=== PATIENT | female | born 1950 | race Caucasian/White ===

== ENCOUNTER 2016-08-02 07:38 | Emergency (ER) | payer MEDICARE ==
[2016-08-02] MEDS ORDERED: Ondansetron INJ* 2 MG/ML VIAL IV ONE (11:04)
[2016-08-02] MEDS ORDERED: NS 0.9% 1000 ML* 1,000 ML IV ONE (11:04)
[2016-08-02 11:36] LABS: Albumin 4.2 g/dL (3.2-5.2); BUN/Creatinine Ratio 28.2 (8-20); C Reactive Protein 15.85 mg/L (< 5.00); EGFR African American 47.3 (>60); EGFR Non-African American 36.8 (>60); Globulin 3.4 g/dL (2-4); Potassium 4.8 mmol/L (3.5-5.0); Total Bilirubin 0.8 mg/dL (0.2-1.0); Total Protein 7.6 g/dL (6.4-8.9)
[2016-08-02 11:38] LABS: Hematocrit 42 % (35-47); Hemoglobin 13.8 g/dl (12.0-16.0); Mean Corpuscular HGB Conc 33 g/dl (31-36); Mean Corpuscular Hemoglobin 29 pg (27-31); Mean Corpuscular Volume 88 fL (80-97); Mean Platelet Volume 10 um3 (7.4-10.4); Red Blood Count 4.83 10^6/ul (4.0-5.4); Red Cell Distribution Width 16 % (10.5-15); White Blood Count 16.6 10^3/ul (3.5-10.8)
[2016-08-02 11:39] LABS: Comments Flag Yes
[2016-08-02 11:42] LABS: Add Diff/Slide Review? Manual Diff Added
--- NOTE | 2016-08-02 11:44 | ED ---
Abdominal Pain/Female - HPI Summary HPI Summary: 66 female presents accompanied by with complaints of nausea, vomiting and diarrhea that began around 0500 this morning. Has had about 6-7 episodes vomiting before arrival, last being at 730am and diarrhea began after and has had approximately 8 episodes. Patient has a history of becoming easily dehydrated with previous similar symptoms and experiencing lactic acidosis. Patient also had an episode of pancreatitis back in 2004. Patient has diabetes and is on Metformin, and recently was placed on Januvia ~2-3days ago. Believes it may be from the medication, and she came as soon as symptoms started to avoid dehydration and pancreatitis, both that she is highly prone too. Patient came today to avoid becoming dehydrated and rule out pancreatitis. Patient denies any localized abdominal pain. States it is just crampy and diffuse discomfort. Patient has been unable to eat or drink since symptoms began. Bowel movements were normal before diarrhea. Denies blood, fever/chills, urinary symptoms and genitalia symptoms. No recent antibiotic use, other GI disorders. 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 No recent travel or outside water source. Patient denies take out food or leftover. No experiencing signs or symptoms of DKA. States her sugars have been great. - History of Current Complaint Chief Complaint: EDNauseaVomitDiarrh Stated Complaint: NAUSEA Time Seen by Provider: 08/02/16 11:03 Hx Obtained From: Patient, Family/Yeast Culture Operator - ?: No Onset/Duration: Sudden Onset, Lasting Hours Timing: Intermittent Episode Lasting Severity Currently: None Pain Intensity: 0 Pain Scale Used: 0-10 Numeric Location: Diffuse - crampy, Radiates: No Aggravating Factor(s): Nothing Alleviating Factor(s): Nothing Associated Signs and Symptoms: Positive: Decreased Appetite, Nausea, Vomiting, Diarrhea. Negative: Diaphoresis, Fever, Back Pain, Blood in Stool, Urinary Symptoms Allergies/Adverse Reactions: Allergies Allergy/AdvReac Type Severity Reaction Status Date / Time Latex Allergy Rash Verified 08/02/16 07:43 Statins Allergy Muscle Ache Verified 08/02/16 07:43 Sulfa Antibiotics AdvReac Intermediate Nausea And Verified 08/02/16 07:43 Vomiting PMH/Surg Hx/FS Hx/Imm Hx Endocrine/Hematology History: Reports: Hx Diabetes - TYPE 2, ON ORAL MEDS, Hx Thyroid Disease - "2 nodules" Denies: Hx Systemic Lupus Erythematosus, Hx Anemia Cardiovascular History: Reports: Hx Cardiomegaly - ENLARGED HEART WHEN AST FOUND , BACK TO NORMAL SIZE AFTER REPAIR, Hx Hypercholesterolemia, Hx Hypertension - ON MEDS FOR, Hx Valvular Heart Disease - PT STATES "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 VALVE, I DONT REMEMBER WHICH ONE.", Other Cardiovascular Problems/Disorders - ATRIAL SEPTIC DEFCT Denies: Hx Congestive Heart Failure, Hx Pacemaker/ICD GI History: Reports: Hx Gastroesophageal Reflux Disease - ON MEDS FOR, Other GI Disorders - PT HAS PANCREATITIS, STENT IMPLANTED 10 YEARS AGO, NO SYMPTOMS IN 10 YEARS Denies: Hx Jaundice History: Reports: Hx Renal Disease - abnormal gfr, Other Problems/ Disorders - STATES "PROBLEM WITH KIDNEYS R/T MEDICATION, GOES UP AND DOWN." Denies: Hx Dialysis Musculoskeletal History: Reports: Hx Arthritis - MILD ARTHRITIS IN BOTH HIPS, Hx Bursitis - BILATERL HIPS, CORTISONE WORKED FOR RIGHT HIP, LEFT HIP NEEDS SURGERY, Hx Tendonitis - LEFT HIP Denies: Hx Rheumatoid Arthritis, Hx Osteoporosis Sensory History: Reports: Hx Contacts or Glasses - FOR READING AND DRIVING Denies: Hx Hearing Aid Opthamlomology History: Reports: Hx Contacts or Glasses - FOR READING AND DRIVING Neurological History: Reports: Hx Migraine - PT STATES 30 YEARS AGO, Other Neuro Impairments/Disorders - VERTIGO Psychiatric History: Reports: Hx Depression - ON MEDS FOR Denies: Hx Panic Disorder - Cancer History Hx Chemotherapy: No Hx Radiation Therapy: No - Surgical History Surgery Procedure, Year, and Place: 06/24/15-REVEAL INSERTABLE NIPPLE MAKER( MODEL LNQ11)-1.5T ONLY(SEE [facility] FOR IMPLANT INFO. PANCREATIC DUCT STENT- 2005- [facility] --LEFT BURSA REMOVED. repair ASD (atrial septal defect) -1997- [place]. THYROID NODULE- REMOVED- LAST 10YEARS- [facility] [place]- DR. MOLINA. CHOLESYSTECTOMY-15 YEARS AGO- [facility] [place]. RIGHT BREAST CYST REMOVED- 10 YEARS AGO- [facility]. mastoidectomy left EAR- 40 YEARS AGO- [facility]. appendectomy- 40 YEARS AGO- [facility]. FALLOPIAN TUBE REMOVED (UNSURE WHICH SIDE)-40 YEARS AGO-[facility]. T&A- A CHILD- [facility] Hx Anesthesia Reactions: Yes - SOME NAUSEA WITH OPEN HEART PROCEDURE - Immunization History Date of Tetanus Vaccine: UNK Date of Influenza Vaccine: UNK Infectious Disease History: No Infectious Disease History: Denies: Traveled Outside the [place] in Last 30 Days - Family History Known Family History: Positive: None - Social History Alcohol Use: Daily Alcohol Amount: 1 GLASS WINE Substance Use Type: Reports: None Smoking Status (MU): Former Smoker Amount Used/How Often: 1PACK ADAY Review of Systems Constitutional: Negative Eyes: Negative ENT: Negative Cardiovascular: Negative Respiratory: Negative Positive: Vomiting, Diarrhea, Nausea Genitourinary: Negative Musculoskeletal: Negative Skin: Negative Neurological: Negative All Other Systems Reviewed And Are Negative: Yes Physical Exam Triage Information Reviewed: Yes Vital Signs On Initial Exam: Initial Vitals Temp Pulse Resp BP Pulse Ox 98.1 F 113 16 113/57 99 08/02/16 07:43 08/02/16 07:43 08/02/16 07:43 08/02/16 07:43 08/02/16 07:43 tachycardia noted, will re-check and monitor. Vital Signs Reviewed: Yes Appearance: Positive: Well-Appearing, No Pain Distress, Well-Nourished Skin: Positive: Warm, Skin Color Reflects Adequate Perfusion, Dry, Other - no tenting noted. Head/Face: Positive: Normal Head/Face Inspection Eyes: Positive: Normal, Conjunctiva Clear ENT: Positive: Normal ENT inspection, Hearing grossly normal, Pharynx normal Dental: Negative: Cervical Lymphadenopathy Neck: Positive: Supple, Nontender, No Lymphadenopathy Respiratory/Lung Sounds: Positive: Clear to Auscultation, Breath Sounds Present. Negative: Rales, Rhonchi, Wheezes Cardiovascular: Positive: Normal, RRR, Pulses are Symmetrical in both Upper and Lower Extremities. Negative: Leg Edema Left, Leg Edema Right Abdomen Description: Positive: Nontender, No Organomegaly, Soft. Negative: Bruit, CVA Tenderness (R), CVA Tenderness (L), Distended, Guarding, Hernia @, McBurney's Point Tenderness, Peritoneal Signs, Pulsatile Mass Bowel Sounds: Positive: Present, Hyperactive Musculoskeletal: Positive: Normal, Strength/ROM Intact Neurological: Positive: Normal, Sensory/Motor Intact, Alert, Oriented to Person Place, Time, CN Intact II-III Psychiatric: Positive: Normal Diagnostics - Vital Signs Vital Signs Temp Pulse Resp BP Pulse Ox 08/02/16 09:35 97.8 F 105 16 121/54 100 08/02/16 07:48 98.1 F 113 16 113/57 99 08/02/16 07:43 98.1 F 113 16 113/57 99 - Laboratory Result Diagrams: 08/02/16 10:55 08/02/16 10:55 Lab Statement: Any lab studies that have been ordered have been reviewed, and results considered in the medical decision making process. 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 Labs, UA ordered. Given zofran and fluids. Patient did have elevated WBC, glucose and lactic. Patient did not take her morning or afternoon medications for her glucose. Given metformin and glipizide, re-checked sugar and lactic acid. Second values improved, patient is still due for more daily medication to control her glucose causing it to be elevated. Patient is asymptomatic and not experiencing symptoms of DKA. Was re-hydrated, given 3 liters of fluid. Patient was eating and feeling better. Diarrhea/vomiting subsided. Dr Chaidez also evaluated patient and stated it was saft to d/c at this time. Told to discontinue januvia and watch blood sugar closey until follow up with rectifying operator/PCP next week. Possibly side effect versus viral syndrome. No imaging necessary at this time. Aware of worsening signs and symptoms to watch out for and when to return. - Diagnoses Differential Diagnosis: Positive: Pancreatitis, Urinary Tract Infection, Other - DKA, dehydration, viral syndrome Provider Diagnoses: Nausea and vomiting - Provider Notifications Discussed Care Of Patient With: Dr Chaidez Time Discussed With Above Provider: 16:10 Discharge - Discharge Plan Condition: Stable Disposition: HOME Prescriptions: Ondansetron TAB* [Zofran 4 MG Tab*] 4 mg PO Q6H PRN #5 tab PRN Reason: Nausea Patient Education Materials: Acute Nausea and Vomiting (ED) Referrals: Ramona Maurice MD [Primary Care Provider] - Additional Instructions: Continue taking your at home medication as directed. You may want to discontinue the Januvia as long as your sugars are under control , as symptoms may have been a side effect. Keep a close eye on your sugars. If your sugar is high or you develop symptoms of hyperglycemia please return. If diarrhea persists you may try over the counter anti-diarrheal medication one time. Take prescribed zofran as needed for nausea/vomiting. If your symptoms persist, worsen, or new symptoms develop please return immediately. Close follow up with PCP.
[2016-08-02 12:06] LABS: Urine Bilirubin Negative (Negative); Urine Glucose 3+(>=500 mg/dL) (Negative); Urine Nitrite Negative (Negative)
[2016-08-02 12:11] LABS: Immature Granulocytes 5 % (0-9); Neutrophil % 87 % (38-83)
[2016-08-02 12:13] LABS: RBC Morphology Normal (Normal)
[2016-08-02] MEDS ORDERED: metFORMIN* 500 MG TAB PO ONE ×2 (12:56→15:29)
[2016-08-02] MEDS ORDERED: glipiZIDE TAB* 5 MG PO ONE (12:57)
[2016-08-02] MEDS: NS 0.9% 1000 ML* 2,000 ML IV ONE ×2 (13:56→13:57)
--- NOTE | 2016-08-02 16:18 | ED ---
Omar Sanchez Billy, scribed for Chanelle Chaidez MD on 08/02/16 at 1612 . Progress - Progress Note Progress Note: Consult for MEMO Mayo. Patient is a 66 year-old female coming to the ED for evaluation of diffuse abdominal pain and nausea, vomiting, and diarrhea. In the ED course, the patient was hydrated with IV fluids and given Zofran, glipizide, and metformin. At the time our our evaluation (160), the patient no longer complained of any discomfort or pain, and she was asymptomatic. Physical exam was benign. Her abdomen was soft and nontender, and she was in no acute distress. Physical Exam Triage Information Reviewed: Yes Vital Signs On Initial Exam: Initial Vitals Temp Pulse Resp BP Pulse Ox 98.1 F 113 16 113/57 99 08/02/16 07:43 08/02/16 07:43 08/02/16 07:43 08/02/16 07:43 08/02/16 07:43 Vital Signs Reviewed: Yes Appearance: Positive: No Pain Distress Skin: Positive: Warm, Dry, Other - no tenting noted. Head/Face: Positive: Normal Head/Face Inspection Eyes: Positive: DANIEL, Conjunctiva Clear ENT: Positive: Hearing grossly normal. Negative: Muffled/hoarse voice Cardiovascular: Positive: RRR, Pulses are Symmetrical in both Upper and Lower Extremities. Negative: Murmur Abdomen Description: Positive: Nontender, Soft Bowel Sounds: Positive: Present Musculoskeletal: Positive: Strength/ROM Intact. Negative: Edema Left, Edema Right Neurological: Positive: Sensory/Motor Intact, Alert, Oriented to Person Place, Time. Negative: Facial Droop, Focal Deficit @, Slurred Speech Psychiatric: Positive: Affect/Mood Appropriate - [place] Coma Scale Coma Scale Total: 15 Re-Evaluation - Re-Evaluation First Eval Re-Evaluation Time: 09:40 Change: Improved - patient was feeling better, no longer nauseous or vomiting, diarrhea also stopped Second Eval Re-Evaluation Time: 11:00 Change: Unchanged - patient still feeling fine Third Eval Re-Evaluation Time: 14:15 Change: Unchanged - patient still feeling fine, updated on current treatment plan to decrease sugar and repear lactic and then will be ready to d/c Course/Dx - Course Course Of Treatment: agree with discharge, despite repeat lactate of 2.2. Pt is clinically well after hydration, and meds for her diabetes and nausea. She will bring in a stool sample if diarrhea continues and return if any new or worsening symptoms. - Diagnoses Provider Diagnoses: Nausea and vomiting, Poorly controlled diabetes mellitus Discharge - Discharge Plan Condition: Stable Disposition: HOME Prescriptions: Ondansetron TAB* [Zofran 4 MG Tab*] 4 mg PO Q6H PRN #5 tab PRN Reason: Nausea Patient Education Materials: Acute Nausea and Vomiting (ED) Referrals: Ramona Maurice MD [Primary Care Provider] - Additional Instructions: Continue taking your at home medication as directed. You may want to discontinue the Januvia as long as your sugars are under control , as symptoms may have been a side effect. Keep a close eye on your sugars. If your sugar is high or you develop symptoms of hyperglycemia please return. If diarrhea persists you may try over the counter anti-diarrheal medication one time. Take prescribed zofran as needed for nausea/vomiting. If your symptoms persist, worsen, or new symptoms develop please return immediately. Close follow up with PCP. The documentation as recorded by the Omar jacinto Billy accurately reflects the service I personally performed and the decisions made by , Chanelle Chaidez MD.
[2016-08-02 16:34] VITALS: BP 116/84
== END 2016-08-02 16:33 | disposition home or self-care (01) ==
LOC: ED 07:38
DX: R11.2 Nausea with vomiting, unspecified (principal); E11.65 Type 2 diabetes mellitus with hyperglycemia; R19.7 Diarrhea, unspecified; Z87.891 Personal history of nicotine dependence
CPT/HCPCS: 36415; 80053; 81003; 83605; 83690; 85025; 86140; 96361; 96374; 99283; A9270-GY; J2405

== ENCOUNTER → 2018-02-02 06:06 | Day surgery (SDC) | payer MEDICARE ==
--- NOTE | 2018-01-29 19:01 | HP ---
AMENDED REPORT NOW INCLUDES DESIGNATED COSIGNER HISTORY AND PHYSICAL: DATE OF ADMISSION: 02/02/18 DATE OF OFFICE VISIT: 01/22/18 ATTENDING PHYSICIAN: Lupe Dejesus MD * (DICTATED BY MEMO VELAZQUEZ) CHIEF COMPLAINT: Right hip pain. HISTORY OF PRESENT ILLNESS: Ms. Rosario is a 67-year-old female with a persistent 8-10 right lateral hip pain due to right hip greater trochanteric bursitis. She has continued to have persistent severe pain that decreases her quality of life. She has tried injections and physical therapy. She did have an MRI that showed tendinosis, but no obvious tear. She has failed conservative treatment and has elected to proceed with surgery for right hip trochanteric bursectomy. She is status post left hip trochanteric bursectomy. PAST MEDICAL HISTORY: 1. Atrial septal defect. 2. Type 2 diabetes. 3. Hyperlipidemia. 4. Malaise. 5. Fatigue. 6. Sacroiliitis. 7. Trochanteric bursitis. 8. Chronic low back pain. 9. Hypertension. 10. Mitral valve disorder. PAST SURGICAL HISTORY: 1. Left trochanteric bursectomy with abductor tendon repair. 2. Mastoidectomy. 3. Open heart surgery for atrial septal defect 10 years ago. MEDICATIONS: 1. Lidocaine 4%. 2. Furosemide 20 mg. 3. Lisinopril 30 mg. 4. Triamcinolone 0.1%. 5. Venlafaxine 75 mg. 6. Aspirin 81 mg. 7. Potassium OTC. 8. Vitamin B12. 9. Vitamin D3. 10. Actos 5 mg. 11. Famciclovir 250 mg. 12. Pantoprazole sodium 40 mg. 13. Tramadol 50 mg. 14. Glipizide 5 mg. 15. Fiber Laxative 625 mg. ALLERGIES: To SULFA ANTIBIOTICS, LATEX, STATIN. SOCIAL HISTORY: The patient lives with her . She does not smoke, minimal alcohol, normally exercises. REVIEW OF SYSTEMS: Constitutional: Weight is unstable. The patient denies fevers, chills, or night sweats or unusual fatigue. HEENT: No visual difficulties. Hearing good. Extremities: Denies muscle weakness or numbness. Positive for right hip pain and back pain, SI joint pain. Cardiovascular: Denies chest pain or pressure, dyspnea on exertion or at rest. Respiratory: No shortness of breath, chronic cough, sputum production. GI: No history of hemoptysis, hematemesis, diarrhea, constipation, or change in bowel habits. She is also positive for depression and anxiety. Positive for diabetes, easy bleeding and bruising. Otherwise negative and noncontributory. PHYSICAL EXAMINATION GENERAL: Well-developed, well-nourished 67-year-old female, in no acute distress. Alert and oriented x3. Appropriate mood and affect. HEENT: Head is normocephalic, atraumatic. NECK: Supple with no palpable lymph nodes. LUNGS: Clear to auscultation bilaterally. No wheezes, rales, or rhonchi. CARDIAC: Regular rate and rhythm. S1, S2. No murmurs, rubs, or gallops. ABDOMEN: Soft, tender, nondistended. Positive bowel sounds throughout. MUSCULOSKELETAL: Right lower extremity, she has tenderness over the greater trochanteric bursa and gluteal tendon. Hip flexion is 90 degrees. Any rotation causes lateral hip pain. Neurovascularly intact distally. SKIN: Intact without rashes or lesions. IMPRESSION: Right hip greater trochanteric bursitis. PLAN: She is scheduled to undergo right greater trochanteric bursectomy on with possible abductor tendon repair. A prescription will be sent to the patient's pharmacy for postoperative pain management. She will follow up in the office 10 to 14 days postoperatively. MEMO VELAZQUEZ [id number]/[facility] #: [id number] JILL
[~2018-02-02 06:06] MED LIST: Buffered Lidocaine 0.9% SYRIN* 5 ML/SYR SYRINGE INTRADERM ONE; Buffered Lidocaine 0.9% SYRIN* 5 ML/SYR SYRINGE ONE; Bupivacaine 0.5% SDV PF* 30ML VIAL ONE; Dexamethasone IV* 4 MG/ML 1 ML (4 MG) ONE; DiMENhydriNATE IV* 50 MG/ML VIAL IV PUSH PRN; DiMENhydriNATE IV* 50 MG/ML VIAL ONE; Famotidine IV* 10 MG/ML 2 ML (20 mg) IV ONE; Famotidine IV* 10 MG/ML 2 ML (20 mg) ONE; HYDROmorphone INJ1* 1 MG/ML SYRINGE IV PRN; HYDROmorphone INJ1* 1 MG/ML SYRINGE ONE; KETAMINE HCL* 50 MG/ML 10 ML VIAL ONE; Ketorolac INJ* 30 MG/ML 1 ML VIAL ONE; Lidocaine 2% PF * 5 ML VIAL ONE; Midazolam* 1 MG/ML 5 ML VIAL (5 MG) ONE; Naloxone* 0.4 MG/ML 1 ML VIAL IV PRN; Ondansetron INJ* 2 MG/ML VIAL ONE; Propofol* 10 MG/ML 20 ML BTL IV PUSH ONE; ceFAZolin 2 GM PREMIX in ORs 2 GM/50 ML BAG IVPB ONE; fentaNYL* 50 MCG/ML 2 ML VIAL (100 MCG VIAL) ONE; oxyCODONE/Acetamin 5/325 MG* TAB ONE; oxyCODONE/Acetamin 5/325 MG* TAB PO PRN
[2018-02-02 10:36] VITALS: BP 165/78
--- NOTE | 2018-02-03 09:45 | OP ---
DATE OF OPERATION: 02/02/18 [facility] DATE OF : 46 SURGEON: Lupe Dejesus MD CARBONATING STONE CLEANER: MEMO Mead ANESTHESIOLOGIST: Dr. Nieto. ANESTHESIA: General. PRE-OP DIAGNOSES: Right trochanteric bursitis, abductor tendinitis. POST-OP DIAGNOSES: Right trochanteric bursitis, abductor tendinitis. OPERATIVE PROCEDURE: Right open greater trochanteric bursectomy, partial piriforms tendon release. COMPLICATIONS: None. ESTIMATED BLOOD LOSS: Less than 25 cc. SPECIMENS: None. BRIEF HISTORY/INDICATIONS: Ms. Rosario is a 67-year-old female with over one year of increasingly severe right lateral hip pain. She developed severe pain along her trochanteric bursa region and the piriformis region, unrelieved by conservative treatment. Due to continued pain and decreased quality of life, she elected to undergo an open right greater trochanteric bursectomy. Informed consent was obtained from the patient. She understood the risks of surgery included but were not limited to bleeding, infection, damage to nearby structures, continued pain, need for further surgery, stroke, heart attack, blood clot, and . She wished to proceed. INTRAOPERATIVE FINDINGS: Intraoperatively, the patient had an inflamed and enlarged trochanteric bursa. She also had piriformis tendon with tightness that was visibly compressing the sciatic nerve near its exit from the sciatic notch region. DESCRIPTION OF PROCEDURE: Ms. Rosario was identified in the preanesthesia unit. Her right lower extremity was marked as the correct operative side. Informed consent was signed and placed in the chart. The patient was taken to the operating room and placed under general anesthesia. She was placed in a left lateral decubitus position on the peg board. All bony prominences were well padded. Right lower extremity was prepped and draped in the usual sterile fashion. Preop time-out was made to correctly identify the patient's side and site. Appropriate perioperative antibiotics were given within 1 hour of incision. An 8-cm lateral hip incision was made directly over the trochanteric bursa. Electrocautery was used to dissect down to the lateral fascial layer. Lateral fascial layer was incised in line with the skin incision. Charnley retractor was placed. Trochanteric bursa was visualized. Bursa was inflamed and enlarged. A rongeur was used to remove the greater trochanteric bursa, any bleeding encountered was treated with electrocautery. The abductor tendon was carefully viewed. There was no obvious abductor tendon tear at the attachment through the greater trochanter. Piriformis tendon was visualized. This tendon was noted to be tight and there was some compression along the sciatic nerve exiting inferiorly. Near its bony insertion, the inferior 50% of the piriformis was released with electrocautery. This compression on the sciatic nerve did seem to be much improved. The surgical wound was copiously irrigated with sterile saline. The lateral fascial layer was reapproximated using interrupted #1 Vicryl. The rest of the incision was closed in a layered fashion using 0 and 2-0 Vicryl. Skin was closed using running 3-0 Monocryl and Dermabond. Sterile Adaptic, 4x4s, and paper tape were used to cover the incision. The patient's anesthesia was reversed without difficulty. She was taken to the PACU in stable condition. Intended weightbearing will be weightbearing as tolerated. Intended DVT prophylaxis will be aspirin. She will follow up in 2 weeks' time for recheck. [id number]/[facility] #: [id number] JILL
== END | disposition home or self-care (01) ==
LOC: OR 06:06
PROVIDERS: ATTEND Orthopaedic Surgery Adult Reconstructive Orthopaedic Surgery
DX: M70.61 Trochanteric bursitis, right hip (principal); M76.01 Gluteal tendinitis, right hip; Q21.1 Atrial septal defect; E11.9 Type 2 diabetes mellitus without complications; E78.5 Hyperlipidemia, unspecified; I10 Essential (primary) hypertension; I34.8 Other nonrheumatic mitral valve disorders
CPT/HCPCS: A9270-GY; J0690; J1100; J1170; J1240; J1885; J2250; J2405; J2704; J3010

== ENCOUNTER 2018-04-28 11:35 | Day surgery (SDC) | payer MEDICARE ==
[~2018-04-28 11:35] MED LIST changes: +Acetaminophen TAB* 325 MG PO PRN; -Buffered Lidocaine 0.9% SYRIN* 5 ML/SYR SYRINGE INTRADERM ONE; -Buffered Lidocaine 0.9% SYRIN* 5 ML/SYR SYRINGE ONE; +Buffered Lidocaine 1% SYRIN* 1 ML/SYRINGE INTRADERM ONE; -Bupivacaine 0.5% SDV PF* 30ML VIAL ONE; -Dexamethasone IV* 4 MG/ML 1 ML (4 MG) ONE; -DiMENhydriNATE IV* 50 MG/ML VIAL IV PUSH PRN; -DiMENhydriNATE IV* 50 MG/ML VIAL ONE; -Famotidine IV* 10 MG/ML 2 ML (20 mg) IV ONE; -Famotidine IV* 10 MG/ML 2 ML (20 mg) ONE; -HYDROmorphone INJ1* 1 MG/ML SYRINGE IV PRN; -HYDROmorphone INJ1* 1 MG/ML SYRINGE ONE; -KETAMINE HCL* 50 MG/ML 10 ML VIAL ONE; -Ketorolac INJ* 30 MG/ML 1 ML VIAL ONE; -Lidocaine 2% PF * 5 ML VIAL ONE; -Midazolam* 1 MG/ML 5 ML VIAL (5 MG) ONE; -Naloxone* 0.4 MG/ML 1 ML VIAL IV PRN; -Ondansetron INJ* 2 MG/ML VIAL ONE; -Propofol* 10 MG/ML 20 ML BTL IV PUSH ONE; -ceFAZolin 2 GM PREMIX in ORs 2 GM/50 ML BAG IVPB ONE; -fentaNYL* 50 MCG/ML 2 ML VIAL (100 MCG VIAL) ONE; -oxyCODONE/Acetamin 5/325 MG* TAB ONE; -oxyCODONE/Acetamin 5/325 MG* TAB PO PRN
[2018-04-28] MEDS ORDERED: Midazolam* 1 MG/ML 2 ML VIAL (2 MG) ONE ×2 (14:13)
[2018-04-28] MEDS ORDERED: Lidocaine 2% PF * 5 ML VIAL ONE (14:26)
[2018-04-28] MEDS ORDERED: Propofol* 10 MG/ML 20 ML BTL ONE (14:26)
[2018-04-28 14:48] VITALS: BP 162/73
[2018-04-28] MEDS ORDERED: Cyclopentolate 1% OPTH.SOL* 2 ML BTL ONE (15:45)
[2018-04-28] MEDS ORDERED: acetaZOLAMIDE TAB* 250 MG ONE (15:45)
[2018-04-28] MEDS ORDERED: Lidocaine 2% EPI 1:200000 MPF*10-20 ML VIAL ONE (15:46)
[2018-04-28] MEDS ORDERED: Lidocaine 1%* 5 ML VIAL ONE (15:46)
[2018-04-28] MEDS ORDERED: Proparacaine 0.5% OPHTH.SOL* 15 ML BTL ONE (15:46)
[2018-04-28] MEDS ORDERED: Phenylephrine 2.5% OPTH.SOL* 2 ML BTL ONE (15:46)
[2018-04-28] MEDS ORDERED: Neomycin/Polymy/Dex OPTH.SUSP* MAXITROL 0.1% 5 ML ONE (15:46)
[2018-04-28] MEDS ORDERED: Povidone Iodine 5% OPTH* 30 ML BTL ONE (15:46)
[2018-04-28] MEDS ORDERED: Ketorolac 0.5% OPHTH (NF) 0.5 % 5 ML BTL ONE (15:46)
--- NOTE | 2018-04-28 20:05 | OP ---
DATE OF OPERATION: 04/28/18 [facility] DATE OF : 46 SURGEON: Jesse Schilling M.D. PREOPERATIVE DIAGNOSIS: Cataract, right eye. POSTOPERATIVE DIAGNOSIS: Cataract, right eye. OPERATIVE PROCEDURE: Extracapsular cataract extraction with intraocular lens implant right eye. DESCRIPTION OF PROCEDURE: The patient was brought to the operating room after being given 1/2% Alcaine with epinephrine drops in the preoperative area. The eye was prepped and draped in the usual sterile fashion. Sterile drape and eyelid speculum were placed. Again, topical 1/2% Alcaine with epinephrine was given. A paracentesis incision was made at the 9 o'clock position with the No.75 blade. Clear cornea incision 2.2 x 2.2-mm was created at the 12 o'clock position starting at the anterior limbus using the 2.2-mm keratome. The anterior chamber was irrigated with 0.4 mL of 1% non-preservative intracameral lidocaine and filled with DisCoVisc. A capsulorrhexis was completed using the cystotome and the Utrata forceps. Hydrodissection was performed with balanced salt solution. The lens nucleus was removed with the Phacoemulsification handpiece without incident. Cortex was removed with the irrigation-aspiration handpiece. The capsular bag was re-inflated using DisCoVisc and an [id number] 24.5 implant was inserted with the shooter. The irrigation-aspiration handpiece was used to remove all residual DisCoVisc. The eye was refilled with balanced salt solution and the wound checked and found to be watertight. Topical Maxitrol drops were given. [id number]/[facility] #: [id number] MTDD
== END 2018-04-28 14:46 | disposition home or self-care (01) ==
LOC: OREAST 11:35
PROVIDERS: ATTEND Specialist
DX: H25.11 Age-related nuclear cataract, right eye (principal); E11.3293 Type 2 diabetes mellitus with mild nonproliferative diabetic retinopathy without macular edema, bilateral; Z79.84 Long term (current) use of oral hypoglycemic drugs
CPT/HCPCS: A9270-GY; J2250; J2704; V2632

== ENCOUNTER 2018-05-05 06:18 | Day surgery (SDC) | payer MEDICARE ==
[2018-05-05] MEDS ORDERED: Midazolam* 1 MG/ML 2 ML VIAL (2 MG) ONE ×2 (07:28→07:34)
[2018-05-05] MEDS ORDERED: fentaNYL* 50 MCG/ML 2 ML VIAL (100 MCG VIAL) ONE (07:37)
[2018-05-05] MEDS ORDERED: Propofol* 10 MG/ML 20 ML BTL ONE (07:39)
[2018-05-05 08:05] VITALS: BP 179/82
--- NOTE | 2018-05-05 08:53 | OP ---
DATE OF OPERATION: 05/05/18 [facility] DATE OF : 46 SURGEON: Jesse Schilling MD PREOPERATIVE DIAGNOSIS: Cataract, left eye. POSTOPERATIVE DIAGNOSIS: Cataract, left eye. OPERATIVE PROCEDURE: Extracapsular cataract extraction with intraocular lens implant, left eye. DESCRIPTION OF PROCEDURE: The patient was brought to the operating room after being given 1/2% Alcaine with epinephrine drops in the preoperative area. The eye was prepped and draped in the usual sterile fashion. Sterile drape and eyelid speculum were placed. Again, topical 1/2% Alcaine with epinephrine was given. A paracentesis incision was made at the 3 o'clock position with the No.75 blade. Clear cornea incision 2.2 x 2.2-mm was created at the 6 o'clock position starting at the anterior limbus using the 2.2-mm keratome. The anterior chamber was irrigated with 0.4 mL of 1% non-preservative intracameral lidocaine and filled with DisCoVisc. A capsulorrhexis was completed using the cystotome and the Utrata forceps. Hydrodissection was performed with balanced salt solution. The lens nucleus was removed with the Phacoemulsification handpiece without incident. Cortex was removed with the irrigation-aspiration handpiece. The capsular bag was re-inflated using DisCoVisc and an [id number] implant was inserted with the shooter, oriented to the 59 degree meridian. Horizontal reference coker were made with the patient in seated position in the preoperative area. An ORA was used to verify position. The irrigation- aspiration handpiece was used to remove all residual DisCoVisc. The eye was refilled with balanced salt solution and the wound checked and found to be watertight. Topical Maxitrol drops were given. [id number]/[facility] #: [id number] MTDD
[2018-05-05] MEDS ORDERED: Cyclopentolate 1% OPTH.SOL* 2 ML BTL ONE (10:38)
[2018-05-05] MEDS ORDERED: Proparacaine 0.5% OPHTH.SOL* 15 ML BTL ONE (10:38)
[2018-05-05] MEDS ORDERED: Neomycin/Polymy/Dex OPTH.SUSP* MAXITROL 0.1% 5 ML ONE (10:38)
[2018-05-05] MEDS ORDERED: Lidocaine 1%* 5 ML VIAL ONE (10:38)
[2018-05-05] MEDS ORDERED: Phenylephrine 2.5% OPTH.SOL* 2 ML BTL ONE (10:38)
[2018-05-05] MEDS ORDERED: Povidone Iodine 5% OPTH* 30 ML BTL ONE (10:38)
[2018-05-05] MEDS ORDERED: Ketorolac 0.5% OPHTH (NF) 0.5 % 5 ML BTL ONE (10:38)
[2018-05-05] MEDS ORDERED: Lidocaine 2% EPI 1:200000 MPF*10-20 ML VIAL ONE (10:38)
== END 2018-05-05 08:08 | disposition home or self-care (01) ==
LOC: OREAST 06:18
PROVIDERS: ATTEND Specialist
DX: H25.12 Age-related nuclear cataract, left eye (principal); Z79.84 Long term (current) use of oral hypoglycemic drugs; E11.3293 Type 2 diabetes mellitus with mild nonproliferative diabetic retinopathy without macular edema, bilateral; I10 Essential (primary) hypertension; M19.90 Unspecified osteoarthritis, unspecified site
CPT/HCPCS: A9270-GY; J2250; J2704; J3010; V2787

== ENCOUNTER 2018-10-16 12:10 | Emergency (ER) | payer MEDICARE ==
--- NOTE | 2018-10-16 13:03 | ED ---
Lower Extremity - HPI Summary HPI Summary: This pt is a 68 y/o female [place] [facility] [place]/o right ankle pain s/p falling while getting out of a boat yesterday. Pt reports she fell while getting out of the boat and immediately heard a crack in her right ankle. Denies head strike or LOC. Pt notes her right ankle is swollen and bruised. Denies any other injuries or complaints from her fall. Her medications include aspirin, denies any other anticoagulants. - History of Current Complaint Chief Complaint: EDFall Stated Complaint: RT ANKLE/LEG INJ PER PT Time Seen by Provider: 10/16/18 12:58 Hx Obtained From: Patient Mechanism Of Injury: Other - s/p fall while getting off a boat yesterday Onset of Pain: Immediate Onset/Duration: Days - 1 Severity Currently: Moderate Pain Intensity: 7 Pain Scale Used: 0-10 Numeric Timing: Lasting Days - 1 Location: Is Discrete @ - right ankle Associated Signs And Symptoms: Positive: Swelling, Bruising. Negative: Fever, Abdominal Pain, Knee Pain Aggravating Factor(s): Nothing Alleviating Factor(s): Nothing Related History: Other - s/p falling while getting out of a boat yesteday - Allergies/Home Medications Allergies/Adverse Reactions: Allergies Allergy/AdvReac Type Severity Reaction Status Date / Time latex Allergy Severe Rash Verified 10/16/18 12:23 Sulfa (Sulfonamide Allergy Intermediate Nausea And Verified 10/16/18 12:23 Antibiotics) Vomiting PMH/Surg Hx/FS Hx/Imm Hx Endocrine/Hematology History: Reports: Hx Diabetes - TYPE 2, ON ORAL MEDS, Hx Thyroid Disease - "2 nodules" Denies: Hx Systemic Lupus Erythematosus, Hx Anemia Cardiovascular History: Reports: Hx Angina, Hx Cardiomegaly - ENLARGED HEART WHEN AST FOUND, BACK TO NORMAL SIZE AFTER REPAIR, Hx Coronary Artery Disease, Hx Hypercholesterolemia, Hx Hypertension - lisinopril, Hx Valvular Heart Disease - Mitral reguritation, Atrial Septal Defect-repaired, Other Cardiovascular Problems/Disorders - Mild pulmonary hypertension Denies: Hx Congestive Heart Failure, Hx Myocardial Infarction, Hx Pacemaker/ ICD Respiratory History: Denies: Hx Asthma, Hx Chronic Obstructive Pulmonary Disease (COPD), Other Respiratory Problems/Disorders GI History: Reports: Hx Gastroesophageal Reflux Disease - pantoprazole, Other GI Disorders - Pancreatitis-duct stent placed 10 years ago, fatty liver Denies: Hx Jaundice History: Reports: Hx Renal Disease - abnormal gfr, Other Problems/ Disorders - STATES "PROBLEM WITH KIDNEYS R/T MEDICATION, GOES UP AND DOWN." Denies: Hx Dialysis Musculoskeletal History: Reports: Hx Arthritis - MILD ARTHRITIS IN BOTH HIPS, Hx Bursitis - BILATERAL HIPS, Hx Tendonitis - Bilateral hips, Other Musculoskeletal History - Lower back jwfp-rappmdwen-otzvxuhon injections Denies: Hx Rheumatoid Arthritis, Hx Osteoporosis Sensory History: Reports: Hx Cataracts - Bilateral, Hx Contacts or Glasses - Glasses for reading and driving Denies: Hx Hearing Aid Opthamlomology History: Reports: Hx Cataracts - Bilateral, Hx Contacts or Glasses - Glasses for reading and driving Neurological History: Reports: Hx Migraine - PT STATES 30 YEARS AGO, Other Neuro Impairments/Disorders - PAIN CLINIC PATIENT Psychiatric History: Reports: Hx Anxiety, Hx Depression - ON MEDS FOR Denies: Hx Panic Disorder - Cancer History Hx Chemotherapy: No Hx Radiation Therapy: No - Surgical History Surgery Procedure, Year, and Place: 06/24/15-REVEAL INSERTABLE BENCH HAND MACHINE( MODEL LNQ11)-1.5T ONLY(SEE [employer] FOR IMPLANT INFO - NOW REMOVED OF . PANCREATIC DUCT STENT- 2005- [facility] (REMOVED NOW)--. LEFT HIP BURSECTOMY & ABDUCTOR TENDON REPAIR(metal anchor in place) 2016. Repair ASD (atrial septal defect) -1997- [place]. THYROID NODULE- REMOVED- LAST 10YEARS[place] [facility]. CHOLESYSTECTOMY-15 YEARS AGO- [facility] RIGHT BREAST CYST REMOVED- 10 YEARS AGO- [facility]. Mastoidectomy left EAR- 40 YEARS AGO- [facility]. Appendectomy- 40 YEARS AGO- [facility]. FALLOPIAN TUBE REMOVED (UNSURE WHICH SIDE)-40 YEARS AGO-[facility]. T&A- A CHILD- [facility]. Right Hip bursectomy 2018[place] [facility] [place]x Anesthesia Reactions: No - Immunization History Date of Tetanus Vaccine: UNK Date of Influenza Vaccine: UNK Infectious Disease History: No Infectious Disease History: Denies: Traveled Outside the [place] in Last 30 Days - Family History Family History: Father with cataracts and macular degeneration - Social History Alcohol Use: None Alcohol Amount: 1 drink/wk Substance Use Type: Reports: None Hx Tobacco Use: No Smoking Status (MU): Former Smoker Amount Used/How Often: 1 PACK ADAY Have You Smoked in the Last Year: No Review of Systems Negative: Fever, Chills Cardiovascular: Negative Respiratory: Negative Gastrointestinal: Negative Musculoskeletal: Other - POSITIVE: right ankle pain Positive: Edema - right ankle Positive: Bruising - right ankle Neurological: Other - NEGATIVE: LOC All Other Systems Reviewed And Are Negative: Yes Physical Exam - Summary Physical Exam Summary: Appearance: The patient is well-nourished in no acute distress and in no acute pain. Skin: The skin is warm and dry. Ecchymosis just distal to the right medial malleolus. HEENT: The head is normocephalic and atraumatic. The pupils are equal and reactive. The conjunctivae are clear and without drainage. Nares are patent and without drainage. Mouth reveals moist mucous membranes and the throat is without erythema and exudate. The external ears are intact. The ear canals are patent and without drainage. The tympanic membranes are intact. Neck: the neck is supple with full range of motion and non-tender. There are no carotid bruits. There is no neck vein distension. Respiratory: Chest is non-tender. Lungs are clear to auscultation and breath sounds are symmetrical and equal. Cardiovascular: Heart is regular rate and rhythm. There is no murmur or rub auscultated. Musculoskeletal: Tender just proximal to the right lateral malleolus. Neurological: Patient is alert and oriented to person, place and time. The patient has symmetrical motor strength in all four extremities. Psychiatric: The patient has an appropriate affect and does not exhibit any anxiety or depression. Triage Information Reviewed: Yes Vital Signs On Initial Exam: Initial Vitals Temp Pulse Resp BP Pulse Ox 98.3 F 96 16 125/70 99 10/16/18 12:15 10/16/18 12:15 10/16/18 12:15 10/16/18 12:15 10/16/18 12:15 Vital Signs Reviewed: Yes Diagnostics - Vital Signs Vital Signs Temp Pulse Resp BP Pulse Ox 10/16/18 12:15 98.3 F 96 16 125/70 99 - Laboratory Lab Statement: Any lab studies that have been ordered have been reviewed, and results considered in the medical decision making process. - Radiology Right ankle XR Radiology Interpretation Completed By: Radiologist Summary of Radiographic Findings: IMPRESSION: Minimally displaced distal right fibula fracture. Dr. Wick has reviewed this report. Right foot XR Radiology Interpretation Completed By: Radiologist Summary of Radiographic Findings: IMPRESSION: Minimally displaced distal right fibula fracture. Dr. Wick has reviewed this report. Re-Evaluation - Re-Evaluation First Eval Re-Evaluation Time: 14:30 Comment: Reviewed discharge plan with the pt. Lower Extremity Course/Dx - Course Course Of Treatment: Ms. Rosario presented after hurting her ankle yesterday. She points just proximal to her lateral malleolus as the point of pain. She has ecchymosis medially in her ankle. Neurovascular and motor are completely intact. X-ray reveals a nondisplaced fibular fracture proximal to the lateral malleolus. She is absolutely nontender in the knee. She is adamant that she cannot use crutches. She has tried them in the past and is unable to use them. She does have a walker at home that she is willing to years. Because of this I placed her in a cam walker so that she would be able to bear a little weight and she states that this comfortable. I recommended she follow-up with orthopedics. - Diagnoses Provider Diagnoses: Nondisplaced fracture of distal end of right fibula Discharge - Sign-Out/Discharge Documenting (check all that apply): Patient Departure - Discharge home Patient Received Moderate/Deep Sedation with Procedure: No - Discharge Plan Condition: Stable Disposition: HOME Prescriptions: traMADol TAB* [Ultram*] 50 mg PO Q6HR PRN #20 tab MDD 4 PRN Reason: Pain Patient Education Materials: Ankle Fracture (ED) Referrals: Ramona Maurice MD [Primary Care Provider] - Devang Mukherjee MD [Medical Doctor] - Additional Instructions: Follow up with Dr. Mukherjee, orthopedist. RETURN TO THE ED FOR ANY WORSENING OR NEW SYMPTOMS. - Billing Disposition and Condition Condition: STABLE Disposition: Home - Attestation Statements Document Initiated by Grace: Yes Documenting Scribe: Cesia Recinos Provider For Whom Grace is Documenting (Include Credential): Marcelo Wick MD Scribe Attestation: Cesia Sanchez scribed for Marcelo Wick MD on 10/17/18 at 0832. Scribe Documentation Reviewed: Yes Provider Attestation: The documentation as recorded by the Cesia jacinto accurately reflects the service I personally performed and the decisions made by me, Marcelo Wick MD Status of Scribe Document: Viewed
[2018-10-16 14:42] VITALS: BP 120/74
== END 2018-10-16 14:41 | disposition home or self-care (01) ==
LOC: ED 12:10
DX: S82.831A Other fracture of upper and lower end of right fibula, initial encounter for closed fracture (principal); V94.0XXA Hitting object or bottom of body of water due to fall from watercraft, initial encounter; Z88.2 Allergy status to sulfonamides; Z91.040 Latex allergy status; E11.9 Type 2 diabetes mellitus without complications; E04.2 Nontoxic multinodular goiter; I11.9 Hypertensive heart disease without heart failure; I25.10 Atherosclerotic heart disease of native coronary artery without angina pectoris; K21.9 Gastro-esophageal reflux disease without esophagitis; Z79.84 Long term (current) use of oral hypoglycemic drugs; Z79.82 Long term (current) use of aspirin; Z79.899 Other long term (current) drug therapy; Z87.891 Personal history of nicotine dependence
CPT/HCPCS: 99282

== ENCOUNTER 2018-11-12 16:35 | Emergency (ER) | payer MEDICARE ==
--- OUTSIDE RECORDS SUMMARY | 2018-11-12 17:10 | XMS REPORT | Continuity of Care Document ---
:1950 Author Organization [facility] Address [address] [place] [address] Care Team Providers Name Role Phone Unavailable Primary Care Physician Unavailable Insurance Providers Payer Name Policy Number Subscriber Name Relationship MEDICARE - [place] [id number] MARLON GRANGER SELF (18) [employer] [id number] MARLON GRANGER SELF (18) [facility] [id number] MARLON GRANGER SELF (18) Advance Directives Directive Response Recorded Date/Time DO YOU HAVE A HEALTHCARE PROXY?: N 11/10/18 9:44am Chief Complaint and Reason for Visit Reason for Visit ABDOMINAL PAIN Problems No problem information available. Medications No medication information available. Social History Status Date Recorded Not November 10, 2018 Hospital Discharge Instructions No hospital discharge instructions. Plan of Care Discharge Date 11/10/18 Disposition HOME/SELF CARE (ROUTINE) Prescriptions See Medications Section Functional Status Query Response Date Recorded What is your primary language?: Lebanese November 10, 2018 9:44am Allergies, Adverse Reactions, Alerts No allergy information available. Immunizations No Known History of Immunizations. Vital Signs No Known Vital Signs Results. Results Laboratory Results Test Name Result Units Flags Reference Collection Result Comments Date/Time Date/Time Urine Color YELLOW 11/10/18 11/10/18 11:58am 12:03pm Urine Appearance CLEAR 11/10/18 11/10/18 11:58am 12:03pm Specific [place] 1.015 1.001-1.035 11/10/18 11/10/18 11:58am 12:03pm Urine Leukocyte NEGATIVE NEGATIVE 11/10/18 11/10/18 Esterase 11:58am 12:03pm Urine Nitrite NEGATIVE NEGATIVE 11/10/18 11/10/18 11:58am 12:03pm Urine pH 5.5 5.0-9.0 11/10/18 11/10/18 11:58am 12:03pm Urine Protein NEGATIVE mg/dL NEGATIVE 11/10/18 11/10/18 11:58am 12:03pm Urine Glucose 500 mg/dL H NEGATIVE 11/10/18 11/10/18 11:58am 12:03pm Urine Ketones NEGATIVE mg/dL NEGATIVE 11/10/18 11/10/18 11:58am 12:03pm Urine Urobilinogen NORMAL(0.2 mg/dL 0-1 11/10/18 11/10/18 -1) 11:58am 12:03pm Urine Bilirubin NEGATIVE NEGATIVE 11/10/18 11/10/18 11:58am 12:03pm Urine Blood TRACE H NEGATIVE 11/10/18 11/10/18 11:58am 12:03pm Urine Microscopic 0-2 /hpf 0-3 11/10/18 11/10/18 RBC 11:58am 12:10pm Urine Microscopic 0-2 /hpf H 0-3 11/10/18 11/10/18 WBC 11:58am 12:10pm Urine Epithelial 1+ /hpf 11/10/18 11/10/18 Cells 11:58am 12:10pm Blood Culture SENT TO 11/10/18 11/10/18 (LAB) REF LAB 9:49am 10:04am White Blood Count 10.9 K/mm3 H 4.0-10.0 11/10/18 11/10/18 9:48am 10:01am Red Blood Count 3.95 M/mm3 L 4.00-5.50 11/10/18 11/10/18 9:48am 10:01am Hemoglobin 11.0 gm/dL L 12.0-16.0 11/10/18 11/10/18 9:48am 10:01am Hematocrit 34.5 % L 36.0-48.8 11/10/18 11/10/18 9:48am 10:01am Mean Corpuscular 87.3 fl 80-96 11/10/18 11/10/18 Volume 9:48am 10:01am Mean Corpuscular 27.8 pg 27.0-31.0 11/10/18 11/10/18 Hemoglobin 9:48am 10:01am Mean Corpuscular 31.9 g/dl L 32.0-36.0 11/10/18 11/10/18 Hgb Concent Diff 9:48am 10:01am Red Cell 14.8 % H 10.0-14.5 11/10/18 11/10/18 Distribution Width 9:48am 10:01am Platelet Count 162 K/mm3 L 172-450 11/10/18 11/10/18 9:48am 10:01am Mean Platelet 11.3 fl 9.0-13.0 11/10/18 11/10/18 Volume 9:48am 10:01am Granulocytes % 85.2 % H 50-80.0 11/10/18 11/10/18 (Auto) 9:48am 10:01am Immature 0.2 % 0.0-0.2 11/10/18 11/10/18 Granulocytes % 9:48am 10:01am Lymphocytes % 7.1 % L 25.0-50.0 11/10/18 11/10/18 9:48am 10:01am Monocytes % 7.0 % 2.0-10.0 11/10/18 11/10/18 9:48am 10:01am Eosinophils % 0.3 % 0-5.0 11/10/18 11/10/18 9:48am 10:01am Basophils % 0.2 % 0.0-2.0 11/10/18 11/10/18 9:48am 10:01am Granulocytes # 9.3 K/mm3 H 2.0-8.00 11/10/18 11/10/18 9:48am 10:01am Immature 0.0 K/mm3 0.0-0.2 11/10/18 11/10/18 Granulocytes # 9:48am 10:01am Lymphocytes # 0.8 K/mm3 L 1.0-5.0 11/10/18 11/10/18 9:48am 10:01am Monocytes # 0.8 K/mm3 0.10-1.20 11/10/18 11/10/18 9:48am 10:01am Eosinophils # 0.0 K/mm3 0.0-0.5 11/10/18 11/10/18 9:48am 10:01am Basophils # 0.0 K/mm3 0.0-0.2 11/10/18 11/10/18 9:48am 10:01am Prothrombin Time 11.1 SECONDS H 8.7-10.7 11/10/18 11/10/18 9:48am 10:55am INR International 1.14 H 0.87-1.06 11/10/18 11/10/18 Normalized Ratio 9:48am 10:55am Partial 22.6 SECONDS 21.4-30.2 11/10/18 11/10/18 Thromboplastin 9:48am 10:55am Time - Mary Jo Glucose Level 231 mg/dL H 74-106 11/10/18 11/10/18 9:48am 10:23am Lactic Acid Level 1.1 mmol/L 0.4-2.0 11/10/18 11/10/18 9:48am 10:26am Blood Urea 38 mg/dL H 7-18 11/10/18 11/10/18 Nitrogen 9:48am 10:23am Creatinine 1.6 mg/dL H 0.6-1.0 11/10/18 11/10/18 9:48am 10:23am Sodium Level 139 mmol/L 136-145 11/10/18 11/10/18 9:48am 10:23am Potassium Level 4.0 mmol/L 3.5-5.1 11/10/18 11/10/18 9:48am 10:23am Chloride Level 104 mmol/L 98-107 11/10/18 11/10/18 9:48am 10:23am Carbon Dioxide 25 mmol/L 21-32 11/10/18 11/10/18 Level 9:48am 10:23am Calcium Level 9.5 mg/dL 8.5-10.1 11/10/18 11/10/18 9:48am 10:23am Anion Gap 10.0 mmol/L 5-12 11/10/18 11/10/18 9:48am 10:23am Estimated GFR 32 mL/min 11/10/18 11/10/18 GFR IS CALCULATED IN mL/min/ 1.73m2 (MDRD) 9:48am 10:23am NORMAL FUNCTION: >90 MILDLY DECREASED: 60-89 MILDY TO MODERATELY DECREASED: 45-59 MODERATELY TO SEVERELY DECREASED: 30-44 SEVERELY DECREASED: 15-29 RENAL FAILURE: <15 Aspartate Amino 17 U/L 15-37 11/10/18 11/10/18 Transf (AST/SGOT) 9:48am 10:23am Alanine 17 U/L 12-78 11/10/18 11/10/18 Aminotransferase 9:48am 10:23am (ALT/SGPT) Alkaline 103 U/L 46-116 11/10/18 11/10/18 Phosphatase 9:48am 10:23am Total Bilirubin 0.8 mg/dL 0.2-1.0 11/10/18 11/10/18 9:48am 10:23am Total Protein 7.6 g/dl 6.4-8.2 11/10/18 11/10/18 9:48am 10:23am Albumin 3.2 gm/dL L 3.4-5.0 11/10/18 11/10/18 9:48am 10:23am Lipase 187 U/L 73-393 11/10/18 11/10/18 9:48am 10:23am Magnesium Level 1.4 mg/dL L 1.8-2.4 11/10/18 11/10/18 9:48am 10:23am Procedures Procedure Status Date Provider(s) ABD/PEL NO CONTRAST Active 11/10/18 JANIYA OROZCO Encounters Encounter Location Arrival/Admit Date Discharge/Depart Date Attending Provider [place] 11/10/18 9:10am 11/10/18 1:53pm [facility], [facility] JANIYA
--- OUTSIDE RECORDS SUMMARY | 2018-11-12 17:10 | XMS REPORT | Continuity of Care Document ---
:1950 External Reference #:[id number] Author Name Karlene Muñiz Care Team Providers Name Role Phone Ramona Mcpherson MD Primary Care Physician Unavailable Payers Date Identification Numbers Payment Provider Subscriber Effective: 2018 Policy Number: [id number] Medicare Marlon Palm Rosario PayID: [id number] [address] [place] [address] Expires: 2018 Policy Number: [id number] Medicare Marlon Palm Rosario PayID: [id number] [address] [facility] [place] [address] Policy Number: [id number] [facility] Marlon Palm Rosario PayID: [id number] [address] [place] [address] Effective: 2014 Policy Number: [facility] Todays Marlon Palm Rosario [id number] Options Expires: 2017 PayID: [id number] [address] [address] Attn: [place] [address] Effective: 2013 Policy Number: [id number] [employer] Marlon Farrpard Expires: 2014 PayID: [id number] [address] [address] Expires: 2013 Policy Number: [id number] [employer] Chip Farrpard PayID: [id number] [address] [address] Problems Active Problems Provider Date Electrocardiogram abnormal Susan Thornton M.D. Onset: 05/26/2012 Dyspnea Susan Thornton M.D. Onset: 05/26/2012 Benign essential hypertension Susan Thornton M.D. Onset: 05/26/2012 Mixed hyperlipidemia Susan Thornton M.D. Onset: 05/26/2012 Type 2 diabetes mellitus Susan Thornton M.D. Onset: 05/26/2012 Ostium secundum type atrial septal Susan Thornton M.D. Onset: 2012 defect Malaise and fatigue Susan Thornton M.D. Onset: 05/26/2012 Mitral valve disorder Susan Thornton M.D. Onset: 06/27/2013 Rheumatic disease of tricuspid valve Susan Thornton M.D. Onset: 06/27 Enthesopathy of hip region Lupe Dejesus M.D. Onset: 11/16/2014 Localized, primary osteoarthritis of Lupe Dejesus M.D. Onset: 11/16/2014 the pelvic region and thigh Essential hypertension Susan Thornton M.D. Onset: 04/20/2015 Trochanteric bursitis Lupe Dejesus M.D. Onset: 05/09/2015 Solitary sacroiliitis Lupe Dejesus M.D. Onset: 01/07/2017 Low back pain Shell Monroe MD Onset: 08/12/2017 Gluteal tendinitis Lupe Dejesus M.D. Onset: 01/04/2018 Closed fracture of lateral malleolus Dion Calix MD Onset: 10/20/2018 Unspecified fracture of shaft of right Dion Calix MD Onset: 10/20/2018 fibula, initial encounter for closed fracture Family History Date Family Member(s) Observation Comments General Cancer General Heart Disease General Rheumatoid Arthritis Father due to Unknown Causes () Mother due to ND () Mother Heart Disease Children None First Brother Diabetes, Non Insulin Dependent First Sister Diabetes, Non Insulin Dependent Second Sister Alive And Well Paternal Grandfather due to ND () Social History Type Date Description Comments Sex Unknown Marital Status 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 ETOH Use Rarely consumes beer Tobacco Use Start: Unknown End: Patient is a former quit smoking in Unknown smoker 1989, smoked for 30 years 2-1ppd Recreational Drug Use Denies Drug Use Smoking Status Reviewed: 10/28/18 Patient is a former quit smoking in smoker 1989, smoked for 30 years /2-1ppd Exercise Type/Frequency PT twice weekly Allergies, Adverse Reactions, Alerts Active Allergies Reaction Severity Comments Date Latex 06/19/2014 Sulfapyridine 08/03/2018 Inactive Allergies Sulfa Antibiotics nausea 05/25/2012 Clopidogrel bruising 06/22/2015 NKDA 06/02/2018 Medications Active Medications SIG Qnty Indications Ordering Provider Date Tramadol HCL 1 tab 2-3 a day 90tabs Lupe Dejesus, 04/16/2018 50mg as needed for M.D. 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) Venlafaxine HCL ER 1 tab po day 49tabs Unknown 75mg Tablets ER 24HR Aspirin 1 tablet every 90tabs Unknown 81mg Tablets DR day Potassium OTC 99 mg tablets 3 Unknown Tablets tablets by mouth twice daily Vitamin D3 1 by mouth every Unknown Capsules day Famciclovir 3 daily as needed Unknown 250mg Tablets Pantoprazole Sodium take 1 tablet by Unknown mouth once daily 40mg Tablets DR Glipizide 1 by mouth three Unknown 5mg Tablets every day Metformin HCL 1/2 by mouth Unknown 500mg twice a day Tablets Pioglitazone HCL 1 tablet by mouth Unknown 45mg daily Tablets Pravastatin Sodium 1 by mouth every Unknown 10mg day Tablets History Medications Gabapentin take 1 capsule by 60caps M51.36 Jesse Jules, 06/02/2018 - 100mg mouth at night for M.D. 08/02/2018 Capsules 1 week then 1 by mouth twice daily ongoing Aspercreme Lidocaine apply daily as 30units Jesse Jules, 06/02/2018 - Max Strength needed for pain in M.D. 08/02/2018 4% the feet Patches Aspirin Ec take 1 tab by 28tabs Lupe Dejesus, 02/02/2018 - 325mg mouth twice a day M.D. 05/31/[address] for 2 weeks Colace 1 tab by mouth 2-3 90caps Lupe Dejesus, 02/02/2018 - 100mg Capsules times a day as M.D. 10/06/2018 needed Percocet 1-2 by mouth every 60tabs Lupe Dejesus, 02/02/2018 - 5-325mg 6 hours as needed M.D. 03/18/2018 Tablets pain Lidoderm 1 apply to 30units M46.1 Jesse Jules, 11/02/2017 - 5% Patches affected area 12 M.D. 11/02/2017 hours on, 12 hours off to hip bursal region Flector apply 1 patch up 30units M46.1 Jesse Jules, 11/02/2017 - 1.3% Patches to twice dailiy as M.D. 11/02/2017 needed for pain Lidocaine apply a small 60units M46.1 Jesse Jules, 11/02/2017 - 4% Cream amount twice daily M.D. 01/06/2018 as needed for pain to affected joint or muscle Furosemide 1 by mouth every 30tabs R60.0 Qutaybeh S. 08/10/2017 - 20mg day prn for edema Jacob Thornton 08/02/2018 Tablets (not taking, per pt.) Glipizide 1 by mouth bid Other Ordering 01/08/2017 - 5mg Tablets Provider 08/09/2017 Oxycodone HCL 1 tab by mouth 30tabs Devang Muhammad, 08/29/2015 - 5mg twice a day as M.D. 04/20/2016 Tablets needed for pain Colace 1 by mouth up to 3 90capla Drummond 08/08/2015 - 100mg Capsules times a day as KHUSHBOO Villalpando 11/25/2015 needed for constipation. Aspirin one by mouth twice 20tabs Hoda 08/08/2015 - 325mg Tablets a day post KHUSHBOO Villalpando 11/25/2015 operatively for 10 days to prevent blood clots- do not take medication prior to surgery Keflex 1 tab by mouth 16caps Carmenza Mena, 06/14/2015 - 250mg Capsules thre times a day x M.D. 06/12/2015 2 days Percocet 1-2 tabs by mouth 90tabs M70.62 Lupe Dejesus, 06/08/2015 - 5-325mg q6 as needed pain M.D. 08/07/2015 Tablets Clopidogrel 1 by mouth every 30tabs Toney Fuentes 05/08/2015 - Bisulfate day Ashli M.DElsa 06/12/2015 75mg Tablets Tramadol HCL 1-2 tablets by 120tabs M16.12 Lupe Dejesus, 04/20/2015 - 50mg mouth q6 hours as M.D. 07/09/2015 Tablets needed pain Tramadol HCL 1 tablet by mouth 120tabs M70.62 Devang Muhammad, 11/16/2014 - 50mg every 6 hours as M.D. 08/07/2015 Tablets needed pain Fiber Laxative 1 by mouth twice a Unknown - 625mg day 05/31/2018 Tablets Tramadol HCL 1-2 tablets by 30tabs Lupe Dejesus, - 50mg mouthbid as needed M.D. 04/16/2018 Tablets pain Magnesium Glycinate 2 cap po twice Unknown - daily ( started 08/09/2017 250mg Capsule taking 1 year now 2015) Actos 1 po every day Unknown - 5mg 05/31/2018 Vitamin B-12 1 by mouth every Unknown - Tablets day 08/02/2018 Sub Tramadol HCL 1 tab by mouth 60tabs Hoda - 50mg twice a day for KHUSHBOO Villalpando 12/31/2015 Tablets pain Metformin HCL 2 po q am, 1 po at Unknown - 500mg noon, 2 po q pm 08/12/2017 Tablets Oxycodone-Acetaminop one to two tabs by 60tabs Hoda - hen mouth every 4-6 KHUSHBOO Villalpando 08/29/2015 5-325mg Tablets hours as needed for pain Pantoprazole Sodium 1 by mouth every Unknown - day 03/30/[address] Glipizide 2 po bid 180tabs Other Ordering - 10mg Provider 01/08/2017 Tablets Omeprazole 1 po qd 30caps Other Ordering - 40mg Provider 06/21/2014 Capsules Famvir 1 tab po 2x per 60tabs Unknown - 250mg Tablets day prn 03/30/2017 Metformin HCL 1 po qd 60tabs Unknown - 500mg 05/07/2015 Tablets Nabumetone 1 po bid prn 60tabs Unknown - 500mg 06/12/2015 Tablets Vitamin D High 2 po qd Unknown - Potency 05/26/2012 1000Unit Capsules Vitamin C 1 po qd 60units Unknown - 500mg 02/19/2017 Chewtabs Calcium 600 + D 1 po qd 60tabs Unknown - 02/19/2017 [id number] Tablets Pravastatin Sodium 1 tablet once 90tabs Unknown - daily at bedtime Unknown 80mg Tablets Antivert prn Unknown - 12.5mg 06/18/2014 Tablets Lisinopril 1 po qd 90tabs Unknown - 10mg 04/16/2015 Tablets Triamcinolone apply bid until 30gm Unknown - Acetonide clear prn 05/31/2018 0.1% Cream Omeprazole 1 po qd 30caps Unknown - 20mg 07/21/2012 Capsules Medications Administered in Office Medication SIG Qnty Indications Ordering Provider Date Depomedrol 40MG Stevenson Damon M.D. 11/23/2017 Injection Depomedrol 40MG Flo Rincon MD 05/12/2017 Injection Depomedrol 40MG Lupe Dejesus M.D. 05/09/2015 Injection Depomedrol 80MG Lupe Dejesus M.D. 11/16/2014 Injection Depomedrol 80MG Lupe Dejesus M.D. 06/19/2014 Injection Vital Signs Date Vital Result Comment 10/28/2018 1:30pm Height 65.5 inches 5'5.50" Weight 205.00 lb Heart Rate 78 /min BP Systolic 118 mmHg BP Diastolic 70 mmHg Respiratory Rate 18 /min Body Temperature 98.0 F Pain Level 7 BMI (Body Mass Index) 33.6 kg/m2 10/20/2018 3:14pm Height 65.5 inches 5'5.50" Weight 205.00 lb Heart Rate 95 /min BP Systolic 116 mmHg BP Diastolic 68 mmHg Respiratory Rate 18 /min Pain Level 8 BMI (Body Mass Index) 33.6 kg/m2 10/06/2018 11:00am Height 65.5 inches 5'5.50" Weight 205.00 lb Heart Rate 84 /min BP Systolic Sitting 160 mmHg BP Diastolic Sitting 78 mmHg Pain Level 8 BMI (Body Mass Index) 33.6 kg/m2 08/03/2018 10:44am Height 65.5 inches 5'5.50" Weight 203.00 lb Clothes/shoes Heart Rate 70 /min Radial BP Systolic Sitting 128 mmHg Lue reg cuff BP Diastolic Sitting 60 mmHg Lue reg cuff BP Systolic Standing 122 mmHg Lue reg cuff BP Diastolic Standing 60 mmHg Lue reg cuff BMI (Body Mass Index) 33.3 kg/m2 Ejection Fraction REF 70% Stress test 01/13/2018 06/18/2018 11:20am Height 65.5 inches 5'5.50" Weight 195.00 lb BP Systolic 123 mmHg BP Diastolic 71 mmHg Respiratory Rate 16 /min Pain Level 3 BMI (Body Mass Index) 32.0 kg/m2 06/02/2018 8:39am Height 65.5 inches 5'5.50" Weight 198.00 lb Respiratory Rate 14 /min Pain Level 4 BMI (Body Mass Index) 32.4 kg/m2 05/31/2018 1:42pm Height 65.5 inches 5'5.50" Weight 199.00 lb BP Systolic 132 mmHg BP Diastolic 66 mmHg Pain Level 10 BMI (Body Mass Index) 32.6 kg/m2 04/16/2018 2:56pm Height 65.5 inches 5'5.50" Heart Rate 88 /min BP Systolic 136 mmHg BP Diastolic 64 mmHg Body Temperature 98.5 F Pain Level 6 03/19/2018 10:50am Height 65.5 inches 5'5.50" Heart Rate 97 /min BP Systolic 122 mmHg BP Diastolic 62 mmHg Respiratory Rate 18 /min Pain Level 1 02/17/2018 11:11am Height 65.5 inches 5'5.50" Heart Rate 86 /min BP Systolic Sitting 148 mmHg BP Diastolic Sitting 68 mmHg Body Temperature 98.3 F Pain Level 7 01/22/2018 2:54pm Height 65.5 inches 5'5.50" Weight 199.00 lb Heart Rate 64 /min BP Systolic 140 mmHg BP Diastolic 78 mmHg Respiratory Rate 20 /min Body Temperature 98.3 F Pain Level 8 right hip BMI (Body Mass Index) 32.6 kg/m2 01/07/2018 11:16am Height 65.5 inches 5'5.50" Weight 196.75 lb Heart Rate 47 /min BP Systolic Sitting 128 mmHg lue/large cuff BP Diastolic Sitting 60 mmHg lue/large cuff BP Systolic Standing 110 mmHg lue/large cuff BP Diastolic Standing 62 mmHg lue/large cuff BMI (Body Mass Index) 32.2 kg/m2 Ejection Fraction 60-65% 02/17/17 01/04/2018 10:29am Height 65.5 inches 5'5.50" Heart Rate 80 /min BP Systolic 138 mmHg BP Diastolic 82 mmHg Body Temperature 97.4 F Pain Level 5 11/23/2017 3:11pm Height 65.5 inches 5'5.50" Weight 190.00 lb Heart Rate 64 /min BP Systolic 126 mmHg BP Diastolic 74 mmHg Body Temperature 96.3 F BMI (Body Mass Index) 31.1 kg/m2 11/16/2017 1:14pm Height 65.5 inches 5'5.50" Weight 190.00 lb Heart Rate 80 /min BP Systolic 140 mmHg BP Diastolic 66 mmHg BMI (Body Mass Index) 31.1 kg/m2 11/09/2017 3:29pm Height 65 inches 5'5" Weight 190.00 lb BP Systolic 122 mmHg BP Diastolic 71 mmHg Respiratory Rate 16 /min Pain Level 6 BMI (Body Mass Index) 31.6 kg/m2 11/02/2017 12:50pm Height 65 inches 5'5" Weight 190.25 lb Heart Rate 69 /min BP Systolic Standing 140 mmHg BP Diastolic Standing 62 mmHg Respiratory Rate 14 /min Pain Level 8 BMI (Body Mass Index) 31.7 kg/m2 08/19/2017 11:27am Height 65 inches 5'5" Weight 184.50 lb w/shoes Heart Rate 86 /min BP Systolic Sitting 140 mmHg L/A Reg Cuff BP Diastolic Sitting 68 mmHg L/A Reg Cuff BMI (Body Mass Index) 30.7 kg/m2 Ejection Fraction 60-65% Echo 02/17/2017 08/12/2017 2:56pm Height 65 inches 5'5" Weight 187.00 lb BP Systolic Sitting 110 mmHg BP Diastolic Sitting 70 mmHg Pain Level 8 BMI (Body Mass Index) 31.1 kg/m2 08/10/2017 4:26pm Height 65 inches 5'5" Weight 187.00 lb Heart Rate 86 /min BP Systolic Sitting 138 mmHg L/A Reg Cuff BP Diastolic Sitting 78 mmHg L/A Reg Cuff BMI (Body Mass Index) 31.1 kg/m2 Ejection Fraction 60-65% echo 02/17/2017 08/05/2017 8:06am Height 65 inches 5'5" Heart Rate 74 /min BP Systolic 130 mmHg BP Diastolic 70 mmHg Respiratory Rate 20 /min Body Temperature 97.1 F Pain Level 0 05/12/2017 9:47am Height 65 inches 5'5" Weight 185.00 lb BP Systolic 123 mmHg BP Diastolic 69 mmHg Respiratory Rate 15 /min Pain Level 7 BMI (Body Mass Index) 30.8 kg/m2 03/31/2017 10:06am Height 65 inches 5'5" Weight 183.00 lb with shoes Heart Rate 100 /min BP Systolic Sitting 100 mmHg Lue lg cuff BP Diastolic Sitting 60 mmHg Lue lg cuff BP Systolic Standing 94 mmHg Lue lg cuff BP Diastolic Standing 60 mmHg Lue lg cuff Respiratory Rate 17 /min BMI (Body Mass Index) 30.4 kg/m2 Ejection Fraction 60-65% date 02/17/2017 ECHO 02/20/2017 3:59pm Height 65 inches 5'5" Weight 182.00 lb Heart Rate 79 /min BP Systolic Sitting 138 mmHg BP Diastolic Sitting 86 mmHg Respiratory Rate 16 /min BMI (Body Mass Index) 30.3 kg/m2 01/08/2017 2:03pm Height 65 inches 5'5" Weight 190.00 lb with shoes Heart Rate 80 /min BP Systolic Sitting 138 mmHg LA reg cuff BP Diastolic Sitting 68 mmHg LA reg cuff BMI (Body Mass Index) 31.6 kg/m2 Ejection Fraction 60%-65% echo 04/24/16 01/07/2017 9:10am Height 65 inches 5'5" Weight 185.00 lb BP Systolic 114 mmHg BP Diastolic 60 mmHg Body Temperature 97.5 F BMI (Body Mass Index) 30.8 kg/m2 04/21/2016 2:40pm Height 66 inches 5'6" Weight 185.25 lb with shoes Heart Rate 106 /min BP Systolic Sitting 172 mmHg LA lrg cuff BP Diastolic Sitting 78 mmHg LA lrg cuff BMI (Body Mass Index) 29.9 kg/m2 Ejection Fraction 60% - 65% echo 06/08/13 01/23/2016 2:52pm Height 66 inches 5'6" Weight 187.00 lb BP Systolic 108 mmHg BP Diastolic 64 mmHg Pain Level 6 BMI (Body Mass Index) 30.2 kg/m2 01/01/2016 3:57pm Height 66 inches 5'6" Weight 179.00 lb Heart Rate 79 /min BP Systolic Sitting 124 mmHg BP Diastolic Sitting 82 mmHg Respiratory Rate 16 /min O2 % BldC Oximetry 95 % BMI (Body Mass Index) 28.9 kg/m2 11/26/2015 9:50am Height 66 inches 5'6" Weight 185.00 lb Heart Rate 64 /min Respiratory Rate 16 /min Pain Level 5 At hs only BMI (Body Mass Index) 29.9 kg/m2 10/01/2015 10:00am Height 66 inches 5'6" Weight 185.00 lb Pain Level 6 BMI (Body Mass Index) 29.9 kg/m2 08/29/2015 9:19am Height 66 inches 5'6" Body Temperature 96.7 F Pain Level 4 08/09/2015 1:11pm Height 66 inches 5'6" Weight 191.00 lb w/shoes Heart Rate 86 /min BP Systolic Sitting 142 mmHg Ra lg cuff BP Diastolic Sitting 76 mmHg Ra lg cuff BMI (Body Mass Index) 30.8 kg/m2 Ejection Fraction 60-65% Echo 06/08/13 08/08/2015 9:35am Height 66 inches 5'6" Weight 185.00 lb Heart Rate 87 /min BP Systolic 127 mmHg BP Diastolic 68 mmHg Body Temperature 96.7 F BMI (Body Mass Index) 29.9 kg/m2 07/10/2015 4:02pm Height 66 inches 5'6" Weight 190.00 lb Heart Rate 88 /min BP Systolic Sitting 130 mmHg BP Diastolic Sitting 66 mmHg Respiratory Rate 16 /min BMI (Body Mass Index) 30.7 kg/m2 07/10/2015 12:53pm Height 66 inches 5'6" Weight 190.00 lb with shoes Heart Rate 100 /min BP Systolic Sitting 142 mmHg LA, reg BP Diastolic Sitting 70 mmHg LA, reg BMI (Body Mass Index) 30.7 kg/m2 Ejection Fraction 60%-65% echo 06/08/13 06/27/2015 11:20am Height 66 inches 5'6" Weight 186.00 lb BMI (Body Mass Index) 30.0 kg/m2 06/22/2015 1:25pm Height 66 inches 5'6" Weight 186.00 lb Heart Rate 84 /min BP Systolic Sitting 124 mmHg Ra reg cuff BP Diastolic Sitting 84 mmHg Ra reg cuff BP Systolic Standing 124 mmHg Ra BP Diastolic Standing 78 mmHg Ra Respiratory Rate 14 /min BMI (Body Mass Index) 30.0 kg/m2 Ejection Fraction 60-65% 06/08/13 06/08/2015 1:18pm Height 66 inches 5'6" Weight 183.00 lb Pain Level 10 BMI (Body Mass Index) 29.5 kg/m2 05/09/2015 10:25am Height 66 inches 5'6" Weight 183.00 lb Pain Level 2 BMI (Body Mass Index) 29.5 kg/m2 05/08/2015 4:19pm Height 66 inches 5'6" Weight 176.00 lb Heart Rate 64 /min BP Systolic Sitting 118 mmHg BP Diastolic Sitting 76 mmHg Respiratory Rate 14 /min BMI (Body Mass Index) 28.4 kg/m2 04/20/2015 1:22pm Height 66 inches 5'6" Weight 183.25 lb with shoes Heart Rate 96 /min BP Systolic Sitting 162 mmHg LA reg cuff BP Diastolic Sitting 82 mmHg LA reg cuff Respiratory Rate 17 /min BMI (Body Mass Index) 29.6 kg/m2 Ejection Fraction 60-65% date 06/08/13 ECHO 04/20/2015 9:50am Height 66 inches 5'6" Weight 175.00 lb Pain Level 6 BMI (Body Mass Index) 28.2 kg/m2 04/17/2015 8:58am Height 66 inches 5'6" Weight 175.00 lb Heart Rate 72 /min BP Systolic Sitting 136 mmHg BP Diastolic Sitting 82 mmHg Respiratory Rate 14 /min BMI (Body Mass Index) 28.2 kg/m2 03/22/2015 1:30pm Height 66 inches 5'6" Weight 195.00 lb Pain Level 1 BMI (Body Mass Index) 31.5 kg/m2 02/08/2015 2:28pm Height 66 inches 5'6" Weight 195.00 lb Pain Level 2 BMI (Body Mass Index) 31.5 kg/m2 01/18/2015 4:19pm Height 66 inches 5'6" Weight 95.00 lb Pain Level 4 BMI (Body Mass Index) 15.3 kg/m2 12/21/2014 12:52pm Height 66 inches 5'6" Weight 195.00 lb Heart Rate 83 /min BP Systolic 152 mmHg BP Diastolic 89 mmHg Pain Level 5 BMI (Body Mass Index) 31.5 kg/m2 12/20/2014 3:15pm Height 66 inches 5'6" Weight 195.00 lb Heart Rate 83 /min BP Systolic 152 mmHg BP Diastolic 89 mmHg BMI (Body Mass Index) 31.5 kg/m2 11/16/2014 9:49am Height 66 inches 5'6" Weight 195.00 lb Pain Level 8 BMI (Body Mass Index) 31.5 kg/m2 06/26/2014 2:19pm Height 66 inches 5'6" Weight 195.00 lb Pain Level 0 BMI (Body Mass Index) 31.5 kg/m2 06/22/2014 2:46pm Height 66 inches 5'6" Weight 186.00 lb Heart Rate 96 /min BP Systolic 134 mmHg LA reg BP Diastolic 64 mmHg LA reg BMI (Body Mass Index) 30.0 kg/m2 06/19/2014 11:29am Height 66 inches 5'6" Weight 195.00 lb Heart Rate 85 /min BP Systolic 130 mmHg BP Diastolic 78 mmHg BMI (Body Mass Index) 31.5 kg/m2 06/27/2013 8:35am Height 66 inches 5'6" Weight 191.00 lb Heart Rate 76 /min BP Systolic Sitting 114 mmHg BP Diastolic Sitting 68 mmHg BMI (Body Mass Index) 30.8 kg/m2 07/21/2012 9:57am Height 66 inches 5'6" Heart Rate 64 /min reg BP Systolic Sitting 190 mmHg BP Diastolic Sitting 90 mmHg 05/26/2012 1:21pm Height 66 inches 5'6" Weight 183.00 lb Heart Rate 100 /min BP Systolic Sitting 136 mmHg BP Diastolic Sitting 74 mmHg Respiratory Rate 20 /min BMI (Body Mass Index) 29.5 kg/m2 Results Test Date Facility Test Result H/L Range Note Laboratory test 02/02/2018 [facility] Point of Care 131 mg/dL High 70-100 [address] [place] [address] [phone] Laboratory test 02/02/2018 [facility] Point of Care 145 mg/dL High 70-100 [address] [place] [address] [phone] Laboratory test 11/02/2017 [facility] Creatine 51 U/L Normal 10-[address] [place] [address] [phone] Rheumatoid Factor < 10 IU/mL Normal <15 4 Laboratory test 11/02/2017 [facility] C Reactive 6.90 mg/L Normal <8.[address] [place] [address] [phone] Erythrocyte Sed Rate 35 mm/Hr Normal 0-40 6 Hla B27 11/02/2017 [facility] Hla B27 Negative [address] [place] [address] [phone] Hla B27 Interp See Comment 8 Connective Tissue 11/02/2017 [facility] Anti-Nuclear Antibody 0.3 U 9 Panel [address] [place] [address] [phone] Cyclic Citrullinated Peptide <15.6 U 10 Interpretation See Comment 11 Comp Metabolic Panel 08/11/2017 [facility] Sodium 136 mmol/L Low 139-[address] [place] [address] [phone] Potassium 4.1 mmol/L Normal 3.5-5.0 Chloride 100 mmol/L Low 101-111 Co2 Carbon Dioxide 28 mmol/L Normal 22-32 Anion Gap 8 mmol/L Normal 2-11 Glucose 375 mg/dL High 70-100 Blood Urea Nitrogen 26 mg/dL High 6-24 Creatinine 1.26 mg/dL High 0.51-0.95 BUN/Creatinine Ratio 20.6 High 8-20 Calcium 9.8 mg/dL Normal 8.6-10.3 Total Protein 7.1 g/dL Normal 6.4-8.9 Albumin 3.9 g/dL Normal 3.2-5.2 Globulin 3.2 g/dL Normal 2-4 Albumin/Globulin Ratio 1.2 Normal 1-3 Total Bilirubin 0.60 mg/dL Normal 0.2-1.0 Alkaline Phosphatase 63 U/L Normal 34-104 Alt 16 U/L Normal 7-52 Ast 17 U/L Normal 13-39 Egfr Non- 42.1 >60 Egfr 54.1 >60 12 Laboratory test 03/25/2017 [facility] Surgical SEE RESULT 13, [address] [place] [address] [phone] Laboratory test 08/16/2015 [facility] Point of Care 200 mg/dL High 74-[address] Glucose 06 [place] [address] [phone] Laboratory test 04/17/2015 [facility] Blood Urea 29 mg/dL High 6-[address] [place] [address] [phone] Creatinine 04/17/2015 [facility] Creatinine 1.21 mg/dL High 0.[address] -0.9 [place] [address] 5 [phone] Egfr Non- 44.5 Normal >60 Egfr 57.3 Normal >60 16 Basic Metabolic 07/06/2013 [facility] Sodium 139 mmol/L Normal 133-[address] [place] [address] [phone] Potassium 4.2 mmol/L Normal 3.7-5.6 Chloride 103 mmol/L Normal 101-111 Co2 Carbon Dioxide 27 mmol/L Normal 22-32 Anion Gap 9 mmol/L Normal 2-11 Glucose 168 mg/dL High 70-100 Blood Urea Nitrogen 27 mg/dL High 6-24 Creatinine 0.98 mg/dL High 0.51-0.95 BUN/Creatinine Ratio 27.6 High 8-20 Calcium 9.5 mg/dL Normal 8.6-10.3 Egfr Non- 57.1 Normal >60 Egfr 73.5 Normal >60 17 Lipid Profile 07/06/2013 [facility] Triglycerides 130 mg/dL Normal 18 (Trig/Chol/HDL) [address] [place] [address] [phone] Cholesterol 258 mg/dL Normal 19 HDL Cholesterol 50.6 mg/dL Normal 20 LDL Cholesterol 181 mg/dL Normal 21 Laboratory test 07/06/2013 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 ADDITIONAL INFORMATION Method: Flow Cytometry Performing Laboratory CLIA# [id number] Test Performed by: [facility] [address] [place] [address] 9 REFERENCE VALUE <=1.0 (Negative) 10 REFERENCE VALUE <20.0 (Negative) 11 Tests for antibodies to dsDNA and LATHA antigens are not performed automatically unless the ZAIN result is > or= 3.0 U. Studies performed at [facility] indicate that positive ZAIN results <3.0 U are rarely accompanied by positive second order tests. Test Performed by: [facility] [address] [place] [address] 12 Because ethnic data is not always readily available, this report includes an eGFR for both -Americans and non- Americans. The National Kidney Disease Education Program (NKDEP) does not endorse the use of the MDRD equation for patients that are not between the ages of 18 and 70, are , have extremes of body size, muscle mass, or nutritional status, or are non- or non-. According to the National Kidney Foundation, irrespective of diagnosis, the stage of the disease is based on the level of kidney function: Stage Description GFR(mL/min/1.73 m(2)) 1 Kidney damage with normal or decreased GFR 90 2 Kidney damage with mild decrease in GFR 60-89 3 Moderate decrease in GFR 30-59 4 Severe decrease in GFR 15-29 5 Kidney failure <15 (or dialysis) 13 NO TRACKING 14 SEE RESULT BELOW Name: MARLON ROSARIO : [address]: Carmenza Mena MD Acct: [id number] Unit: [id number] AGE: 66 Location: [facility] Re03/25/17 SEX: F Status: REG REF SPEC: [id number] ALICE: 03/25/170 [facility] DR: Carmenza Mena MD REQ: [id number] RECD: 03/25/17 STATUS: MALU CARRILLO DR: Toney Cornelius MD _ ORDERED: LEVEL 1 COMMENTS: NO TRACKING FINAL DIAGNOSIS Event monitor, removal: Foreign body (event monitor) (Gross diagnosis). PRE-OPERATIVE DIAGNOSIS Near syncope GROSS DESCRIPTION The specimen is received fresh with no source identified and a requisition labeled, Event Monitor, and consists of a 4.4 x 0.6 x 0.4 cm rodriguez [employer] medical practitioners. The following inscription is identified: [employer] Reveal LINQ SN [id number] 15. Per established hospital medical staff protocol, no tissue is submitted. Gross only. Signed (signature on file) Benny Phelps MD [id number] END OF REPORT * ML=Testing performed at Main Lab DEPARTMENT OF PATHOLOGY, [address] [place] [address] Benny Phelps M.D. Director [facility] # [id number] 15 Depositing Machine Operator: [id number] JENY KELLEY 16 Because ethnic data is not always readily available, this report includes an eGFR for both -Americans and non- Americans. The National Kidney Disease Education Program (NKDEP) does not endorse the use of the MDRD equation for patients that are not between the ages of 18 and 70, are , have extremes of body size, muscle mass, or nutritional status, or are non- or non-. According to the National Kidney Foundation, irrespective of diagnosis, the stage of the disease is based on the level of kidney function: Stage Description GFR(mL/min/1.73 m(2)) 1 Kidney damage with normal or decreased GFR 90 2 Kidney damage with mild decrease in GFR 60-89 3 Moderate decrease in GFR 30-59 4 Severe decrease in GFR 15-29 5 Kidney failure <15 (or dialysis) 17 Because ethnic data is not always readily available, this report includes an eGFR for both -Americans and non- Americans. The National Kidney Disease Education Program (NKDEP) does not endorse the use of the MDRD equation for patients that are not between the ages of 18 and 70, are , have extremes of body size, muscle mass, or nutritional status, or are non- or non-. According to the National Kidney Foundation, irrespective of diagnosis, the stage of the disease is based on the level of kidney function: Stage Description GFR(mL/min/1.73 m(2)) 1 Kidney damage with normal or decreased GFR 90 2 Kidney damage with mild decrease in GFR 60-89 3 Moderate decrease in GFR 30-59 4 Severe decrease in GFR 15-29 5 Kidney failure <15 (or dialysis) 18 Desirable <150 Borderline high 150-199 High 200-499 Very High >500 19 Desirable <200 Borderline high 200-239 High >239 20 Low <40 Desirable: 40-60 High: >60 21 Desirable <100 Near Optimal 100-129 Borderline high 130-159 High 160-189 Very High >189 22 Therapeutic target for the treatment of diabetes Mellitus patients is <7% HBA1C, and in selective patients <6.0%.Please refer to [place] [employer] Diabetic care guidelines for further information. Procedures Date Code Description Status 08/03/2018 97409 EKG Tracing & Interpretation Completed 02/02/2018 02739 Excision;Trochanteric Bursa Or Calcification Completed 02/02/2018 31611 Excision;Trochanteric Bursa Or Calcification Completed 01/13/2018 36278 Treadmill Interp/Report Only Completed 01/13/2018 25721 Stress Test Supervsn W/Out I/R Completed 01/07/2018 91240 EKG Tracing & Interpretation Completed 11/23/2017 77185 Inject/Drain Joint/Bursa Major W/O US Completed 08/10/2017 66276 EKG Tracing & Interpretation Completed 05/27/2017 07088 Implantable Cardio System Loop Recorder Sys Remota Data Completed Acquistio 05/27/2017 83055 Interrogation Dev Loop Recorder Incl Physician Completed Analysis,Rev,Repor 05/12/2017 46385 Inject/Drain Joint/Bursa Major W/O US Completed 04/26/2017 04980 Implantable Cardio System Loop Recorder Sys Remota Data Completed Acquistio 04/26/2017 43422 Interrogation Dev Loop Recorder Incl Physician Completed Analysis,Rev,Repor 03/26/2017 11239 Implantable Cardio System Loop Recorder Sys Remota Data Completed Acquistio 03/26/2017 69251 Interrogation Dev Loop Recorder Incl Physician Completed Analysis,Rev,Repor 03/25/2017 54800 Removal Loop Recorder Completed 02/23/2017 95574 Implantable Cardio System Loop Recorder Sys Remota Data Completed Acquistio 02/23/2017 49936 Interrogation Dev Loop Recorder Incl Physician Completed Analysis,Rev,Repor 02/17/2017 21826 ECHO Transthoracic, Real-Time 2D With Doppler And Color Completed Flow 01/23/2017 77380 Interrogation Dev Loop Recorder Incl Physician Completed Analysis,Rev,Repor 01/23/2017 12626 Implantable Cardio System Loop Recorder Sys Remota Data Completed Acquistio 01/08/2017 65745 EKG Tracing & Interpretation Completed 12/23/2016 58361 Implantable Cardio System Loop Recorder Sys Remota Data Completed Acquistio 12/23/2016 51903 Interrogation Dev Loop Recorder Incl Physician Completed Analysis,Rev,Repor 11/22/2016 11140 Implantable Cardio System Loop Recorder Sys Remota Data Completed Acquistio 11/22/2016 89670 Interrogation Dev Loop Recorder Incl Physician Completed Analysis,Rev,Repor 10/22/2016 76164 Implantable Cardio System Loop Recorder Sys Remota Data Completed Acquistio 10/22/2016 10581 Interrogation Dev Loop Recorder Incl Physician Completed Analysis,Rev,Repor 09/21/2016 68295 Interrogation Dev Loop Recorder Incl Physician Completed Analysis,Rev,Repor 09/21/2016 36754 Implantable Cardio System Loop Recorder Sys Remota Data Completed Acquistio 08/21/2016 08825 Implantable Cardio System Loop Recorder Sys Remota Data Completed Acquistio 08/21/2016 26473 Interrogation Dev Loop Recorder Incl Physician Completed Analysis,Rev,Repor 07/21/2016 01076 Implantable Cardio System Loop Recorder Sys Remota Data Completed Acquistio 07/21/2016 86217 Interrogation Dev Loop Recorder Incl Physician Completed Analysis,Rev,Repor 06/20/2016 23976 Implantable Cardio System Loop Recorder Sys Remota Data Completed Acquistio 06/20/2016 41393 Interrogation Dev Loop Recorder Incl Physician Completed Analysis,Rev,Repor 05/20/2016 43890 Implantable Cardio System Loop Recorder Sys Remota Data Completed Acquistio 05/20/2016 15975 Interrogation Dev Loop Recorder Incl Physician Completed Analysis,Rev,Repor 04/24/2016 23563 ECHO Transthoracic, Real-Time 2D With Doppler And Color Completed Flow 04/21/2016 04256 EKG Tracing & Interpretation Completed 04/19/2016 36397 Implantable Cardio System Loop Recorder Sys Remota Data Completed Acquistio 04/19/2016 43711 Interrogation Dev Loop Recorder Incl Physician Completed Analysis,Rev,Repor 03/19/2016 74053 Implantable Cardio System Loop Recorder Sys Remota Data Completed Acquistio 03/19/2016 15551 Interrogation Dev Loop Recorder Incl Physician Completed Analysis,Rev,Repor 02/17/2016 96400 Implantable Cardio System Loop Recorder Sys Remota Data Completed Acquistio 02/17/2016 45988 Interrogation Dev Loop Recorder Incl Physician Completed Analysis,Rev,Repor 01/17/2016 32199 Implantable Cardio System Loop Recorder Sys Remota Data Completed Acquistio 01/17/2016 18305 Interrogation Dev Loop Recorder Incl Physician Completed Analysis,Rev,Repor 12/17/2015 90819 Interrogation Dev Loop Recorder Incl Physician Completed Analysis,Rev,Repor 12/17/2015 92899 Implantable Cardio System Loop Recorder Sys Remota Data Completed Acquistio 11/16/2015 35515 Implantable Cardio System Loop Recorder Sys Remota Data Completed Acquistio 11/16/2015 55680 Interrogation Dev Loop Recorder Incl Physician Completed Analysis,Rev,Repor 10/16/2015 73002 Implantable Cardio System Loop Recorder Sys Remota Data Completed Acquistio 10/16/2015 83853 Interrogation Dev Loop Recorder Incl Physician Completed Analysis,Rev,Repor 09/15/2015 24928 Implantable Cardio System Loop Recorder Sys Remota Data Completed Acquistio 09/15/2015 18655 Interrogation Dev Loop Recorder Incl Physician Completed Analysis,Rev,Repor 08/16/2015 48441 Unlisted Procedure, Pelvis/Hip Completed 08/16/2015 49760 Unlisted Procedure, Pelvis/Hip Completed 08/16/2015 70795 Excision;Trochanteric Bursa Or Calcification Completed 08/15/2015 40420 Interrogation Dev Loop Recorder Incl Physician Completed Analysis,Rev,Repor 08/15/2015 18251 Implantable Cardio System Loop Recorder Sys Remota Data Completed Acquistio 07/15/2015 42767 Implantable Cardio System Loop Recorder Sys Remota Data Completed Acquistio 07/15/2015 88847 Interrogation Dev Loop Recorder Incl Physician Completed Analysis,Rev,Repor 07/10/2015 17994 EKG Tracing & Interpretation Completed 06/14/2015 87854 Implant Cardiac Loop Recorder Completed 05/09/2015 73087 Inject/Drain Joint/Bursa Major W/O US Completed 04/23/2015 46459732 Mammogram Completed 04/20/2015 22726 EKG Tracing & Interpretation Completed 11/16/2014 40223 Inject/Drain Joint/Bursa Major W/O US Completed 06/22/2014 92590 EKG Tracing & Interpretation Completed 06/19/2014 82280 Inject/Drain Joint/Bursa Major W/O US Completed 04/20/2014 05620281 Mammogram Completed 06/27/2013 52297 EKG Tracing & Interpretation Completed 06/08/2013 84442 ECHO Transthoracic, Real-Time 2D With Doppler And Color Completed Flow 07/08/2012 77629 Holter Monitoring 24 HR New Completed 06/21/2012 24833 ECHO Transthoracic, Real-Time 2D With Doppler And Color Completed Flow 06/09/2012 88235 ECHO Stress Test Incl Perf Contiuous ekg Monitoring Completed W/Phys Superv 06/09/2012 88855 ECHO Stress Test Incl Perf Contiuous ekg Monitoring Completed W/Phys Superv 05/26/2012 90689 EKG Tracing & Interpretation Completed Encounters Type Date Location Provider Dx Diagnosis Office Visit 10/28/2018 Orthopedic Nyla Bolanos, S82.64xD Nondisp fx of 1:30p Services Of Tianna HATHAWAYC lateral malleolus of r fibula, 7thD Office Visit 10/20/2018 Orthopedic Dion Calix, S82.64xA Nondisp fx of 3:00p Services Of Tianna LEVY lateral malleolus of right fibula, init S82.401A Unsp fracture of shaft of right fibula, init for clos fx Office Visit 10/06/2018 Neurosurgery Vassilios M46.1 Sacroiliitis, not 11:00a Services Of Yasmeen Monroe MD elsewhere classified M51.36 Other intervertebral disc degeneration, lumbar region Office Visit 08/03/2018 [place] Susan S. I34.0 Nonrheumatic mitral 11:00a Cardiology Jacob Thornton (valve) insufficiency I36.1 Nonrheumatic tricuspid (valve) insufficiency I10 Essential (primary) hypertension E78.2 Mixed hyperlipidemia R94.31 Abnormal electrocardiogram [ECG] [EKG] Office Visit 06/18/2018 10:45a Orthopedic Lupe Dejesus, M70.61 Trochanteric Services Of Jacob bursitis, right Tianna hip M76.01 Gluteal tendinitis, right hip M25.551 Pain in right hip M25.561 Pain in right knee M54.5 Low back pain W19.xxxA Unspecified fall, initial encounter Office Visit 06/02/2018 Rheumatology Jesse M51.36 Other 8:40a Services Of Yasmeen Jules M.D. intervertebral disc degeneration, lumbar region M46.1 Sacroiliitis, not elsewhere classified Office 05/31/2018 Neurosurgery Vassilios M51.36 Other Visit 1:30p Services Of Yasmeen Monroe MD intervertebral disc degeneration, lumbar region M46.1 Sacroiliitis, not elsewhere classified Office Visit 05/26/2018 [facility] Dermatology Anand Salazarzer, L30.4 Erythema intertrigo 9:40a Office Visit 01/07/2018 [place] [facility] Dolores S. E78.4 Other hyperlipidemia 11:30a Of Ana Griffiths.Mesha I34.0 Nonrheumatic mitral (valve) insufficiency I36.1 Nonrheumatic tricuspid (valve) insufficiency I10 Essential (primary) hypertension Office Visit 01/04/2018 10:15a Orthopedic Lupe Dejesus M76.01 Gluteal Services Of MElsaDElsa tendinitis, right C.M.A. hip M16.11 Unilateral primary osteoarthritis, right hip M25.551 Pain in right hip M70.61 Trochanteric bursitis, right hip Office Visit 11/23/2017 3:00p Orthopedic Stevenson Damon M76.01 Gluteal Services Of M.D. tendinitis, right C.M.A. hip Office Visit 11/16/2017 1:15p Orthopedic Lupe Dejesus, M16.11 Unilateral primary Services Of MElsaDElsa osteoarthritis, C.M.A. right hip M25.551 Pain in right hip M70.61 Trochanteric bursitis, right hip Office Visit 11/09/2017 3:30p Orthopedic Services Lupe Dejesus M25.551 Pain in right Of C.M.A. M.D. hip M16.11 Unilateral primary osteoarthritis, right hip M70.61 Trochanteric bursitis, right hip Office Visit 11/02/2017 Rheumatology Jesse M46.1 Sacroiliitis, not 1:00p Services Of Yasmeen Jules M.D. elsewhere classified M70.61 Trochanteric bursitis, right hip M54.5 Low back pain S39.013D Strain of muscle, fascia and tendon of pelvis, subs encntr Office Visit 08/19/2017 11:30a [place] Dolores S. E78.4 Other hyperlipidemia Cardiology Paco, N.P. I10 Essential (primary) hypertension R60.0 Localized edema Office Visit 08/12/2017 3:30p Neurosurgery Vassilios M54.5 Low back Services Of Yasmeen Monroe MD pain M46.1 Sacroiliitis, not elsewhere classified Office Visit 08/10/2017 4:40p [place] [facility] Qutaybeh S. R60.0 Localized edema Jacob Thornton E78.4 Other hyperlipidemia I10 Essential (primary) hypertension Office Visit 08/05/2017 8:00a Orthopedic Lupe Dejesus M70.61 Trochanteric Services Of Jacob bursitis, right C.M.A. hip M46.1 Sacroiliitis, not elsewhere classified M54.5 Low back pain Office Visit 05/12/2017 9:30a Orthopedic Flo Horowitz M75.51 Bursitis of Services Of MD Mckenzie right shoulder C.M.A. S46.011A Strain of musc/tend the rotator cuff of right shoulder, init Office Visit 02/20/2017 Neurohospitalist Toney Gerber5 Syncope and 3:30p Clinic Jacob Cornelius collapse Office Visit 01/08/2017 [place] [facility] Qutaybeh S. I34.0 Nonrheumatic 2:20p rick Thornton (valve) Jacob insufficiency I10 Essential (primary) hypertension I36.1 Nonrheumatic tricuspid (valve) insufficiency R06.02 Shortness of breath Office Visit 01/07/2017 9:00a Orthopedic Services Lupe Dejesus M54.5 Low back pain Of C.M.A. MBenson M46.1 Sacroiliitis, not elsewhere classified M70.62 Trochanteric bursitis, left hip M70.61 Trochanteric bursitis, right hip Office Visit 04/21/2016 [place] Qutaybeh S. I34.0 Nonrheumatic mitral 2:40p Cardiology Jacob Thornton (valve) insufficiency I10 Essential (primary) hypertension I36.1 Nonrheumatic tricuspid (valve) insufficiency E78.4 Other hyperlipidemia Office Visit 01/23/2016 2:45p Orthopedic Stevenson Damon M54.42 Lumbago with Services Of Jacob sciatica, left C.M.A. side Office Visit 01/01/2016 3:45p John Flores Syncope and Services Of Yasmeen Cornelius M.D. collapse Office Visit 11/26/2015 9:45a Orthopedic Mary Kay Murry.62 Trochanteric Services Of Jacob bursitis, left hip C.M.A. Z48.89 Encounter for other specified surgical aftercare S39.013D Strain of muscle, fascia and tendon of pelvis, subs encntr Office Visit 08/09/2015 John Fuentes E78.2 Mixed 1:20p Cardiology Jacob Thornton hyperlipidemia I10 Essential (primary) hypertension I34.0 Nonrheumatic mitral (valve) insufficiency R42 Dizziness and giddiness Office Visit 07/10/2015 John Fuentes M70.62 Trochanteric 1:00p Cardiology Jacob Thornton bursitis, left hip M25.552 Pain in left hip Z01.810 Encounter for preprocedural cardiovascular examination E78.2 Mixed hyperlipidemia I10 Essential (primary) hypertension I34.0 Nonrheumatic mitral (valve) insufficiency Office Visit 07/10/2015 4:00p John Flores Syncope and Neurologic Jacob Cornelius collapse Services Of [facility] Office Visit 06/27/2015 11:15a Orthopedic Eduin Murry70.62 Trochanteric Services Of Jacob bursitis, left hip C.M.A. M25.552 Pain in left hip M76.02 Gluteal tendinitis, left hip M16.12 Unilateral primary osteoarthritis, left hip M16.11 Unilateral primary osteoarthritis, right hip Office Visit 06/08/2015 1:15p Orthopedic Eduin Murry70.62 Trochanteric Services Of Jacob bursitis, left hip C.M.A. M70.61 Trochanteric bursitis, right hip M16.0 Bilateral primary osteoarthritis of hip M25.551 Pain in right hip M25.552 Pain in left hip Office Visit 05/08/2015 John Fuentes I80.8 Phlebitis and 4:00p Neurologic Jacob Cornelius thrombophlebitis of Services Of [facility] other sites Office Visit 04/20/2015 [place] Susan Fuentes I10 Essential (primary) 1:40p Cardiology nancy Thornton M.D. E78.2 Mixed hyperlipidemia I34.0 Nonrheumatic mitral (valve) insufficiency Office Visit 04/20/2015 9:45a Orthopedic Lupe M16.0 Bilateral primary Services Of Jacob Dejesus osteoarthritis of C.M.A. 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 r ft, 7thD Office Visit 02/08/2015 2:30p Orthopedic Devang Oconnor2.355D Nondisp fx of Services Of Jacob Muhammad 5th metatarsal C.M.A. bone, l ft, 7thD Office Visit 01/18/2015 4:00p Codi Oconnor2.355S Nondisp fx of Services Of Jacob Muhammad fifth metatarsal C.M.A. bone, left foot, sequela Office Visit 12/21/2014 12:50p Codi Siddiqi 825.29 FX Tarsal And Services Of Jacob Muhammad Metatarsal Other C.M.A. Office Visit 12/20/2014 2:30p Orthopedic Lupe Dejesus, 825.29 FX Tarsal And Services Of Jacob Metatarsal Other C.M.A. 845.00 Sprains & Strains Ankle Unspec Site 825.25 FX Other Bones Metatarsal Bone(S) Closed Office Visit 06/26/2014 1:45p Orthopedic Lupe Dejesus, 727.3 Bursitis Other Services Of C.M.Dennis James Office Visit 06/22/2014 3:00p [place] Celso Fuentes 745.5 Atrial Septal Jacob Thornton Defect Ostium Secundum Type 401.1 Hypertension Benign 272.2 Hyperlipidemia Mixed 424.0 Mitral Valve Disorder 397.0 Tricuspid Valve Disease Office Visit 06/19/2014 11:00a Orthopedic Services Lupe Dejesus, 727.3 Bursitis Other Of CElsaMSara James 719.45 Pain Joint Pelvic Region & Thigh Office Visit 06/27/2013 8:40a [place] [facility] Krystinybeh S. 745.5 Atrial Septal aJcob Thornton Defect Ostium Secundum Type 401.1 Hypertension Benign 272.2 Hyperlipidemia Mixed 424.0 Mitral Valve Disorder 397.0 Tricuspid Valve Disease Office Visit 07/21/2012 10:00a [place] [facility] Qutaybeh S. 780.79 Malaise And Jacob Thornton Fatigue Other 745.5 Atrial Septal Defect Ostium Secundum Type 272.2 Hyperlipidemia Mixed 250.00 Diabetes Mellitus W/O Compl Type II Or Unspec Controlled 401.1 Hypertension Benign Office 05/26/2012 [place] Susan S. 794.31 Electrocardiogram Visit 1:40p Cardiology Jcaob Thornton (ECG) (EKG) Abnormal 786.05 Shortness Of Breath 401.1 Hypertension Benign 272.2 Hyperlipidemia Mixed 250.00 Diabetes Mellitus W/O Compl Type II Or Unspec Controlled 745.5 Atrial Septal Defect Ostium Secundum Type 780.79 Malaise And Fatigue Other Plan of Treatment Future Appointment(s):12/03/2018 11:30 am - Dion Calix MD at Orthopedic Services Of C.M.AElsa10/28/2018 - Nyla Bolanos [facility]-CS82.64xD Nondisplaced fracture of lateral malleolus of right fibula,Follow up:4 weeks
--- OUTSIDE RECORDS SUMMARY | 2018-11-12 17:11 | XMS REPORT | Continuity of Care Document ---
:1950 External Reference #:[id number] Author Name Arlene Ray Care Team Providers Name Role Phone Ramona Mcpherson MD Primary Care Physician Unavailable Payers Date Identification Numbers Payment Provider Subscriber Effective: 2018 Policy Number: [id number] Medicare Marlon Palm Rosario PayID: [id number] [facility] [place] [address] Expires: 2018 Policy Number: [id number] Medicare Marlon Farrpard PayID: [id number] [facility] [place] [address] [address]: [id number] [facility] Marlon Farrpard PayID: [id number] [address] [place] [address] Effective: 2014 Policy Number: [facility] Todays Marlon Farrpard [id number] Options Expires: 2017 PayID: [id number] [address] [address] Attn: [place] [address] Effective: 2013 Policy Number: [id number] [employer] Marlon Farrpard Expires: 2014 PayID: [id number] [address] [address] Expires: 2013 Policy Number: [id number] [employer] Chip Rosario PayID: [id number] [address] [address] Problems Active Problems Provider Date Electrocardiogram abnormal [...] to Unknown Causes () Mother due to [place] () Mother Heart Disease Children None First Brother Diabetes, Non Insulin Dependent First Sister Diabetes, Non Insulin Dependent Second Sister Alive And Well Paternal Grandfather due to [place] () Social History Type Date Description Comments [...] 30mg Tablets day MD Sachin Alarcon 12/20/2014 [facility] (not currently Irasema, KHUSHBOO using) Venlafaxine HCL ER 1 tab po [...] 1 tab by mouth 2-3 90caps Lupe Dejessu, 02/02/2018 - 100mg Capsules times a day [...] Colace 1 by mouth up to 3 90caps Hoda 08/08/2015 - 100mg Capsules times a day [...] Toney Fuentes 05/08/2015 - Bisulfate day Ashli M.D. 06/12/2015 75mg Tablets Tramadol HCL 1-2 tablets [...] 1 po qd 60tabs Unknown - 02/19/2017 [id number] Tablets Pravastatin Sodium 1 tablet once 90tabs [...] Result H/L Range Note Laboratory test 02/02/2018 [facility] Point of Care 131 mg/dL High 70-100 [address] [place] [address] [phone] Laboratory test 02/02/2018 [facility] Point of Care 145 mg/dL High 70-100 [address] [place] [address] [phone] Laboratory test 11/02/2017 [facility] Creatine Kinase 51 U/L N 10-223 3 finding [address] [place] [address] [phone] Rheumatoid Factor < 10 IU/mL N <15 4 Laboratory test 11/02/2017 [facility] C Reactive 6.90 mg/L N < 8.01 5 finding 101 [facility] [place] [address] [phone] Erythrocyte Sed Rate 35 mm/Hr N 0-40 6 Connective Tissue 11/02/2017 [facility] Anti-Nuclear Antibody 0.3 U 7 Panel [address] [place] [address] [phone] Cyclic Citrullinated Peptide <15.6 U 8 Interpretation See Comment 9 Hla B27 11/02/2017 [facility] Hla B27 Negative 10 [address] [place] [address] [phone] Hla B27 Interp See Comment 11 Comp Metabolic Panel 08/11/2017 [facility] Sodium 136 mmol/L Low 139-145 [address] [place] [address] [phone] Potassium 4.1 mmol/L N 3.5-5.0 Chloride 100 mmol/L Low 101-111 Co2 Carbon Dioxide 28 mmol/L N 22-32 Anion Gap 8 mmol/L N 2-11 Glucose 375 mg/dL High 70-100 Blood Urea Nitrogen 26 mg/dL High 6-24 Creatinine 1.26 mg/dL High 0.51-0.95 BUN/Creatinine Ratio 20.6 High 8-20 Calcium 9.8 mg/dL N 8.6-10.3 Total Protein 7.1 g/dL N 6.4-8.9 Albumin 3.9 g/dL N 3.2-5.2 Globulin 3.2 g/dL N 2-4 Albumin/Globulin Ratio 1.2 N 1-3 Total Bilirubin 0.60 mg/dL N 0.2-1.0 Alkaline Phosphatase 63 U/L N 34-104 Alt 16 U/L N 7-52 Ast 17 U/L N 13-39 Egfr Non- 42.1 >60 Egfr 54.1 >60 12 Laboratory test 03/25/2017 [facility] Surgical SEE RESULT 13, [address] [place] [address] [phone] Laboratory test 08/16/2015 [facility] Point of Care 200 mg/dL High 74-[address] Glucose 06 [place] [address] [phone] Laboratory test 04/17/2015 [facility] Blood Urea 29 mg/dL High 6-[address] [place] [address] [phone] Creatinine 04/17/2015 [facility] Creatinine 1.21 mg/dL High 0.[address] -0.9 [place] [address] 5 [phone] Egfr Non- 44.5 N >60 Egfr 57.3 N >60 16 Basic Metabolic Panel 07/06/2013 [facility] Sodium 139 mmol/L N 133-[address] [place] [address] [phone] Potassium 4.2 mmol/L N 3.7-5.6 Chloride 103 mmol/L N 101-111 Co2 Carbon Dioxide 27 mmol/L N 22-32 Anion Gap 9 mmol/L N 2-11 Glucose 168 mg/dL High 70-100 Blood Urea Nitrogen 27 mg/dL High 6-24 Creatinine 0.98 mg/dL High 0.51-0.95 BUN/Creatinine Ratio 27.6 High 8-20 Calcium 9.5 mg/dL N 8.6-10.3 Egfr Non- 57.1 N >60 Egfr 73.5 N >60 17 Lipid Profile 07/06/2013 [facility] Triglycerides 130 mg/dL N 18 (Trig/Chol/HDL) [address] [place] [address] [phone] Cholesterol 258 mg/dL N 19 HDL Cholesterol 50.6 mg/dL N 20 LDL Cholesterol 181 mg/dL N 21 Laboratory test 07/06/2013 [facility] Creatine Kinase 43 U/L N 10-223 finding [address] [place] [address] [phone] Hemoglobin A1c 7.5 % High Less than 6.0 22 1 Airbrush Artist Technical: [id number] 2 Airbrush Artist Technical: [id number] 3 Please check labs this week 4 Please check labs this week 5 Please check labs this week 6 Please check labs this week 7 REFERENCE VALUE <=1.0 (Negative) 8 REFERENCE VALUE <20.0 (Negative) 9 Tests for antibodies to dsDNA and LATHA antigens are not performed automatically unless the ZAIN result is > or= 3.0 U. Studies performed at [facility] indicate that positive ZAIN results <3.0 U are rarely accompanied by positive second order tests. Test Performed by: [facility] [place] [address] 10 REFERENCE VALUE Not Applicable 11 RESULT: HLA-B27 antigen was not detected. ADDITIONAL INFORMATION Method: Flow Cytometry Performing Laboratory CLIA# [id number] Test Performed by: [place] [address] 12 Because ethnic data is not always [...] [address]: Carmenza Mena MD Acct: [id number] Unit: [id number] AGE: 66 Location: [facility] Re03/25/17 SEX: F Status: REG REF SPEC: [id number] ALICE: 03/25/[address] [facility] [address]: Carmenza Mena MD REQ: [id number] RECD: 03/25/17 STATUS: MALU CARRILLO DR: Toney Cornelius MD _ ORDERED: LEVEL 1 COMMENTS: NO TRACKING FINAL DIAGNOSIS Event monitor, removal: Foreign body (event monitor) (Gross diagnosis). PRE-OPERATIVE DIAGNOSIS Near syncope GROSS DESCRIPTION The specimen is received fresh with no source identified and a requisition labeled, Event Monitor, and consists of a 4.4 x 0.6 x 0.4 cm rodriguez metallic medical records director. The following inscription is identified: [employer] LIN[employer] SN [id number] 15. Per established hospital medical staff protocol, no tissue is submitted. Gross only. Signed (signature on file) Benny Phelps MD 1128 END OF REPORT * ML=Testing performed at Main Lab DEPARTMENT OF PATHOLOGY, [address] [place] [address] Benny Phelps M.D. Director [facility] # [id number] 15 Airbrush Artist Technical: [id number] JENY KELLEY 16 Because ethnic data is [...] and in selective patients <6.0%.Please refer to [place] [employer] Diabetic care guidelines for further information. Procedures Date Code Description Status 08/03/2018 51241 EKG Tracing & Interpretation Completed 02/02/2018 20243 Excision;Trochanteric Bursa Or Calcification Completed 02/02/2018 02281 Excision;Trochanteric Bursa Or Calcification Completed 01/13/2018 53169 Treadmill Interp/Report Only Completed 01/13/2018 04378 Stress Test Supervsn W/Out I/R Completed 01/07/2018 99370 EKG Tracing & Interpretation Completed 11/23/2017 42204 Inject/Drain Joint/Bursa Major W/O US Completed 08/10/2017 88303 EKG Tracing & Interpretation Completed 05/27/2017 59167 Implantable Cardio System Loop Recorder Sys Remota Data Completed Acquistio 05/27/2017 22559 Interrogation Dev Loop Recorder Incl Physician Completed Analysis,Rev,Repor 05/12/2017 18886 Inject/Drain Joint/Bursa Major W/O US Completed 04/26/2017 93724 Implantable Cardio System Loop Recorder Sys Remota Data Completed Acquistio 04/26/2017 34262 Interrogation Dev Loop Recorder Incl Physician Completed Analysis,Rev,Repor 03/26/2017 27816 Implantable Cardio System Loop Recorder Sys Remota Data Completed Acquistio 03/26/2017 02853 Interrogation Dev Loop Recorder Incl Physician Completed Analysis,Rev,Repor 03/25/2017 60327 Removal Loop Recorder Completed 02/23/2017 32680 Implantable Cardio System Loop Recorder Sys Remota Data Completed Acquistio 02/23/2017 13417 Interrogation Dev Loop Recorder Incl Physician Completed Analysis,Rev,Repor 02/17/2017 98088 ECHO Transthoracic, Real-Time 2D With Doppler And Color Completed Flow 01/23/2017 40933 Interrogation Dev Loop Recorder Incl Physician Completed Analysis,Rev,Repor 01/23/2017 48956 Implantable Cardio System Loop Recorder Sys Remota Data Completed Acquistio 01/08/2017 50731 EKG Tracing & Interpretation Completed 12/23/2016 02174 Implantable Cardio System Loop Recorder Sys Remota Data Completed Acquistio 12/23/2016 05863 Interrogation Dev Loop Recorder Incl Physician Completed Analysis,Rev,Repor 11/22/2016 82344 Implantable Cardio System Loop Recorder Sys Remota Data Completed Acquistio 11/22/2016 15064 Interrogation Dev Loop Recorder Incl Physician Completed Analysis,Rev,Repor 10/22/2016 17120 Implantable Cardio System Loop Recorder Sys Remota Data Completed Acquistio 10/22/2016 56545 Interrogation Dev Loop Recorder Incl Physician Completed Analysis,Rev,Repor 09/21/2016 87371 Interrogation Dev Loop Recorder Incl Physician Completed Analysis,Rev,Repor 09/21/2016 63234 Implantable Cardio System Loop Recorder Sys Remota Data Completed Acquistio 08/21/2016 88548 Implantable Cardio System Loop Recorder Sys Remota Data Completed Acquistio 08/21/2016 01052 Interrogation Dev Loop Recorder Incl Physician Completed Analysis,Rev,Repor 07/21/2016 31657 Implantable Cardio System Loop Recorder Sys Remota Data Completed Acquistio 07/21/2016 99016 Interrogation Dev Loop Recorder Incl Physician Completed Analysis,Rev,Repor 06/20/2016 82918 Implantable Cardio System Loop Recorder Sys Remota Data Completed Acquistio 06/20/2016 20851 Interrogation Dev Loop Recorder Incl Physician Completed Analysis,Rev,Repor 05/20/2016 41973 Implantable Cardio System Loop Recorder Sys Remota Data Completed Acquistio 05/20/2016 19313 Interrogation Dev Loop Recorder Incl Physician Completed Analysis,Rev,Repor 04/24/2016 83654 ECHO Transthoracic, Real-Time 2D With Doppler And Color Completed Flow 04/21/2016 63184 EKG Tracing & Interpretation Completed 04/19/2016 32838 Implantable Cardio System Loop Recorder Sys Remota Data Completed Acquistio 04/19/2016 14775 Interrogation Dev Loop Recorder Incl Physician Completed Analysis,Rev,Repor 03/19/2016 44346 Implantable Cardio System Loop Recorder Sys Remota Data Completed Acquistio 03/19/2016 74312 Interrogation Dev Loop Recorder Incl Physician Completed Analysis,Rev,Repor 02/17/2016 15340 Implantable Cardio System Loop Recorder Sys Remota Data Completed Acquistio 02/17/2016 49283 Interrogation Dev Loop Recorder Incl Physician Completed Analysis,Rev,Repor 01/17/2016 17052 Implantable Cardio System Loop Recorder Sys Remota Data Completed Acquistio 01/17/2016 30480 Interrogation Dev Loop Recorder Incl Physician Completed Analysis,Rev,Repor 12/17/2015 62279 Interrogation Dev Loop Recorder Incl Physician Completed Analysis,Rev,Repor 12/17/2015 55377 Implantable Cardio System Loop Recorder Sys Remota Data Completed Acquistio 11/16/2015 71782 Implantable Cardio System Loop Recorder Sys Remota Data Completed Acquistio 11/16/2015 49349 Interrogation Dev Loop Recorder Incl Physician Completed Analysis,Rev,Repor 10/16/2015 62021 Implantable Cardio System Loop Recorder Sys Remota Data Completed Acquistio 10/16/2015 91887 Interrogation Dev Loop Recorder Incl Physician Completed Analysis,Rev,Repor 09/15/2015 29071 Implantable Cardio System Loop Recorder Sys Remota Data Completed Acquistio 09/15/2015 86070 Interrogation Dev Loop Recorder Incl Physician Completed Analysis,Rev,Repor 08/16/2015 64919 Unlisted Procedure, Pelvis/Hip Completed 08/16/2015 98274 Unlisted Procedure, Pelvis/Hip Completed 08/16/2015 44958 Excision;Trochanteric Bursa Or Calcification Completed 08/15/2015 03203 Interrogation Dev Loop Recorder Incl Physician Completed Analysis,Rev,Repor 08/15/2015 18166 Implantable Cardio System Loop Recorder Sys Remota Data Completed Acquistio 07/15/2015 36109 Implantable Cardio System Loop Recorder Sys Remota Data Completed Acquistio 07/15/2015 61828 Interrogation Dev Loop Recorder Incl Physician Completed Analysis,Rev,Repor 07/10/2015 65283 EKG Tracing & Interpretation Completed 06/14/2015 60641 Implant Cardiac Loop Recorder Completed 05/09/2015 32115 Inject/Drain Joint/Bursa Major W/O US Completed 04/23/2015 72707998 Mammogram Completed 04/20/2015 15297 EKG Tracing & Interpretation Completed 11/16/2014 53705 Inject/Drain Joint/Bursa Major W/O US Completed 06/22/2014 46334 EKG Tracing & Interpretation Completed 06/19/2014 37698 Inject/Drain Joint/Bursa Major W/O US Completed 04/20/2014 [id number] Mammogram Completed 06/27/2013 79256 EKG Tracing & Interpretation Completed 06/08/2013 08168 ECHO Transthoracic, Real-Time 2D With Doppler And Color Completed Flow 07/08/2012 54935 Holter Monitoring 24 HR New Completed 06/21/2012 41258 ECHO Transthoracic, Real-Time 2D With Doppler And Color Completed Flow 06/09/2012 65874 ECHO Stress Test Incl Perf Contiuous ekg Monitoring Completed W/Phys Superv 06/09/2012 49564 ECHO Stress Test Incl Perf Contiuous ekg Monitoring Completed W/Phys Superv 05/26/2012 48531 EKG Tracing & Interpretation Completed Encounters Type Date Location Provider Dx Diagnosis Office Visit 08/03/2018 [facility] Qutaybeh S. I34.0 Nonrheumatic mitral 11:00a Jacob Thornton (valve) insufficiency I36.1 Nonrheumatic tricuspid (valve) insufficiency I10 Essential (primary) hypertension E78.2 Mixed hyperlipidemia R94.31 Abnormal electrocardiogram [ECG] [EKG] Office Visit 06/18/2018 10:45a Orthopedic Lupe Oleg, M70.61 Trochanteric Services Of Jacob bursitis, right C.M.A. hip M76.01 Gluteal tendinitis, right hip M25.551 [...] Sacroiliitis, not elsewhere classified Office Visit 05/26/2018 [facility] [address] D[facility]atology Anand Smith, L30.4 Erythema intertrigo 9:40a Office Visit 01/07/2018 [facility] Dolores S. E78.4 Other hyperlipidemia 11:30a Of Yasmeen Antonio N.PElsa I34.0 Nonrheumatic mitral (valve) insufficiency I36.1 Nonrheumatic tricuspid (valve) insufficiency I10 Essential (primary) hypertension Office Visit 01/04/2018 10:15a Orthopedic Lupe Dejesus, M76.01 Gluteal Services Of M.D. tendinitis, right C.M.A. hip M16.11 Unilateral primary osteoarthritis, right hip M25.551 Pain in right hip M70.61 Trochanteric bursitis, right hip Office Visit 11/23/2017 3:00p Orthopedic Stevenson Damon, M76.01 Gluteal Services Of M.D. tendinitis, right C.M.A. hip Office Visit 11/16/2017 1:15p Orthopedic Lupe Dejesus, M16.11 Unilateral primary Services Of M.D. osteoarthritis, C.M.A. right hip M25.551 Pain in right hip M70.61 Trochanteric bursitis, right hip Office Visit 11/09/2017 3:30p Orthopedic Services Lupe Dejesus, M25.551 Pain in right Of C.M.A. M.D. hip M16.11 Unilateral primary osteoarthritis, right hip M70.61 Trochanteric bursitis, right hip Office Visit 11/02/2017 Rheumatology Jesse M46.1 Sacroiliitis, not 1:00p Services Of Yasmeen Jules M.D. elsewhere classified M70.61 Trochanteric bursitis, right hip M54.5 Low back pain S39.013D Strain of muscle, fascia and tendon of pelvis, subs encntr Office Visit 08/19/2017 11:30a [place] Dolores S. E78.4 Other hyperlipidemia Cardiology Foster, N.P. I10 Essential (primary) hypertension R60.0 Localized edema Office Visit 08/12/2017 3:30p Neurosurgery Vassilios M54.5 Low back Services Of Yasmeen Monroe MD pain M46.1 Sacroiliitis, not elsewhere classified Office Visit 08/10/2017 4:40p [facility] Qutaybeh S. R60.0 Localized edema Jacob Thornton E78.4 Other hyperlipidemia I10 Essential (primary) hypertension Office Visit 08/05/2017 8:00a Orthopedic Lupe Dejesus M70.61 Trochanteric Services Of [facility] bursitis, right C.M.A. hip M46.1 Sacroiliitis, not elsewhere classified M54.5 Low back pain Office Visit 05/12/2017 9:30a Orthopedic Flo F M75.51 Bursitis of Services Of MD Mckenzie right shoulder C.M.A. S46.011A Strain of musc/tend the rotator cuff of right shoulder, init Office Visit 02/20/2017 Neurohospitalist Toney Flores Syncope and 3:30p Roby Cornelius M.D. collapse Office Visit 01/08/2017 [facility] Qutaybeh S. I34.0 Nonrheumatic 2:20p Hillary mitral (valve) ChristopherDElsa insufficiency I10 Essential (primary) hypertension I36.1 Nonrheumatic tricuspid (valve) insufficiency R06.02 Shortness of breath Office Visit 01/07/2017 9:00a Orthopedic Services Lupe Dejesus M54.5 Low back pain Of C.M.A. MBenson M46.1 Sacroiliitis, not elsewhere classified M70.62 Trochanteric bursitis, left hip M70.61 Trochanteric bursitis, right hip Office Visit 04/21/2016 [place] Krystinybdimple S. I34.0 Nonrheumatic mitral 2:40p Cardiology Jacob Thornton (valve) insufficiency I10 Essential (primary) hypertension I36.1 Nonrheumatic tricuspid (valve) insufficiency E78.4 Other hyperlipidemia Office Visit 01/23/2016 2:45p Orthopedic Stevenson Damon M54.42 Lumbago with Services Of Jacob sciatica, left C.M.A. side Office Visit 01/01/2016 3:45p [place] [facility] Toney Flores Syncope and Services Of Yasmeen Cornelius M.D. collapse Office Visit 11/26/2015 9:45a Orthopedic Lupe Dejesus M70.62 Trochanteric Services Of Jacob bursitis, left hip C.M.A. Z48.89 Encounter for other specified surgical aftercare S39.013D Strain of muscle, fascia and tendon of pelvis, subs encntr Office Visit 08/09/2015 [place] Susan S. E78.2 Mixed 1:20p Cardiology Jacob Thornton hyperlipidemia I10 Essential (primary) hypertension I34.0 Nonrheumatic mitral (valve) insufficiency R42 Dizziness and giddiness Office Visit 07/10/2015 John Fuentes M70.62 Trochanteric 1:00p Cardiology Jacob Thornton bursitis, left hip M25.552 Pain in left hip Z01.810 Encounter for preprocedural cardiovascular examination E78.2 Mixed hyperlipidemia I10 Essential (primary) hypertension I34.0 Nonrheumatic mitral (valve) insufficiency Office Visit 07/10/2015 4:00p John Fuentes R55 Syncope and Neurologic Jacob Cornelius collapse Services Of [facility] [address] Office Visit 06/27/2015 11:15a Orthopedic Eduin Murry70.62 [...] 05/08/2015 John Fuentes I80.8 Phlebitis and 4:00p Filomena Cornelius M.D. thrombophlebitis of Services Of [facility] [address] other sites Office Visit 04/20/2015 John Fuentes I10 Essential (primary) 1:40p Cardiology nancy Thornton M.D. E78.2 Mixed hyperlipidemia I34.0 Nonrheumatic mitral (valve) insufficiency Office Visit 04/20/2015 9:45a Orthopedic Lupe M16.0 Bilateral primary Services Of Jacob Dejesus osteoarthritis of C.M.A. 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 r ft, 7thD Office Visit 02/08/2015 2:30p Orthopedic Devang S92.355D Nondisp fx of Services Of Jacob Muhammad 5th metatarsal C.M.A. bone, l ft, 7thD Office Visit 01/18/2015 4:00p Orthopedic Devang S92.355S Nondisp fx of Services Of Jacob Muhammad fifth metatarsal C.M.A. bone, left foot, sequela Office Visit 12/21/2014 12:50p Orthopedic Devang 825.29 FX Tarsal And Services Of Jacob Muhammad Metatarsal Other C.M.AElsa Office Visit 12/20/2014 2:30p Orthopedic Lupe Dejesus, 825.29 FX Tarsal And Services Desiree James Metatarsal Other C.MSara 845.00 Sprains & Strains Ankle Unspec Site 825.25 FX Other Bones Metatarsal Bone(S) Closed Office Visit 06/26/2014 1:45p Orthopedic Lupe Dejesus, 727.3 Bursitis Other Services Of Tianna James Office Visit 06/22/2014 3:00p [facility] Petertaybdimple S. 745.5 Atrial Alba Thornton M.D. Defect Ostium Secundum Type 401.1 Hypertension Benign 272.2 Hyperlipidemia Mixed 424.0 Mitral Valve Disorder 397.0 Tricuspid Valve Disease Office Visit 06/19/2014 11:00a Orthopedic Services Lupe Dejesus 727.3 Bursitis Other Of Tianna James 719.45 Pain Joint Pelvic Region & Thigh Office Visit 06/27/2013 8:40a [facility] Qutaybdimple S. 745.5 Atrial Septal Jacob Thornton Defect Ostium Secundum Type 401.1 Hypertension Benign 272.2 Hyperlipidemia Mixed 424.0 Mitral Valve Disorder 397.0 Tricuspid Valve Disease Office Visit 07/21/2012 10:00a [facility] Qutaybeh S. 780.79 Malaise And Jacob Thornton Fatigue Other 745.5 Atrial Septal Defect Ostium Secundum Type 272.2 Hyperlipidemia Mixed 250.00 Diabetes Mellitus W/O Compl Type II Or Unspec Controlled 401.1 Hypertension Benign Office 05/26/2012 John Fuentes 794.31 Electrocardiogram Visit 1:40p Cardiology Jacob Thornton (ECG) (EKG) Abnormal 786.05 Shortness Of Breath 401.1 Hypertension Benign 272.2 Hyperlipidemia Mixed 250.00 Diabetes Mellitus W/O Compl Type II Or Unspec Controlled 745.5 Atrial Septal Defect Ostium Secundum Type 780.79 Malaise And Fatigue Other Plan of Treatment Future Appointment(s):12/03/2018 11:30 am - [facility]
--- OUTSIDE RECORDS SUMMARY | 2018-11-12 17:11 | XMS REPORT | Continuity of Care Document ---
:1950 External Reference #:[id number] Author Name Velia Morelos Care Team Providers Name Role Phone Ramona Mcpherson MD Primary Care Physician Unavailable Payers Date Identification Numbers Payment Provider Subscriber Effective: 2018 Policy Number: [id number] Medicare Cristi Palm Rosario PayID: [id number] [address] [facility] [address] Expires: 2018 Policy Number: [id number] Medicare Cristi Palm Rosario PayID: [id number] [address] [facility] [address] Policy Number: [id number] [facility] Cristi Palm Rosario PayID: [id number] [address] [place] [address] Effective: 2014 Policy Number: [facility] Todays Cristi Farrpard [id number] Options Expires: 2017 PayID: [id number] [address] [address] Attn: [place] [address] Effective: 2013 Policy Number: [id number] [employer] Cristi Farrpard Expires: 2014 PayID: [id number] [address] [address] Expires: 2013 Policy Number: [id number] [employer] Chip Farrpard PayID: [id number] [address] [address] Problems Active Problems Provider Date Electrocardiogram abnormal [...] Essential hypertension Susan Thornton M.D. Onset: 04/20/2015 Gluteal tendinitis Lupe Dejesus M.D. Onset: 01/04/2018 Low back pain Shell Monroe MD Onset: 08/12/2017 Solitary sacroiliitis Lupe Dejesus M.D. Onset: 01/07/2017 Trochanteric bursitis Lupe Dejesus M.D. 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 ETOH Use Rarely consumes beer Tobacco Use Start: Unknown End: Patient is a former quit smoking in Unknown smoker 1989, smoked for 30 years 1/2-1ppd Recreational Drug Use Denies Drug Use Smoking Status Reviewed: 10/06/18 Patient is a former quit smoking in smoker 1989, smoked for 30 years 1/2-1ppd Exercise Type/Frequency PT twice weekly Allergies, Adverse [...] every Ramona Mcpherson 08/19/2016 30mg Tablets day Dorian, MD Sachin Drummond 12/20/2014 [facility] [place] (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 11/02/2017 hours on, 12 hours off to hip bursal region Flector apply 1 patch up 30units M46.1 Jesse Livingstondor, 11/02/2017 - 1.3% Patches to twice dailiy as M.D. 11/02/2017 needed for pain Lidocaine apply a small 60units M46.1 Jesse Jules, 11/02/2017 - 4% Cream amount twice daily M.D. 01/06/2018 as needed for pain to affected joint or muscle Furosemide 1 by mouth every 30tabs R60.0 Qutaybdimple SElsa 08/10/2017 - 20mg day prn for edema Hillary, M.D. 08/02/2018 Tablets (not taking, per pt.) Glipizide [...] 30tabs Toney Fuentes 05/08/2015 - Bisulfate day Jacob Cornelius 06/12/2015 75mg Tablets Tramadol HCL 1-2 tablets [...] Hoda - 50mg twice a day for IrasemaKHUSHBOO 12/31/2015 Tablets pain Metformin HCL 2 po q am, 1 po at Unknown - 500mg noon, 2 po q pm 08/12/2017 Tablets Oxycodone-Acetaminop one to two tabs by 60tabs Hoda - hen mouth every 4-6 KHUSHBOO Villalpando 08/29/2015 5-325mg Tablets hours as needed for pain Pantoprazole Sodium 1 by mouth every Unknown - day 03/30/2017 20mg Tablets Glipizide 2 po bid 180tabs Other Ordering - 10mg Provider 01/08/2017 Tablets Omeprazole 1 po qd 30caps Other Ordering - 40mg Provider 06/21/[address] Famvir 1 tab po 2x per 60tabs [...] 1 po qd 60tabs Unknown - 02/19/2017 [id number] Tablets Pravastatin Sodium 1 tablet once 90tabs Unknown - daily at bedtime Unknown 80mg Tablets Antivert prn Unknown - 12.5mg 06/18/2014 Tablets Lisinopril 1 po qd 90tabs Unknown - 10mg 04/16/2015 Tablets Triamcinolone apply bid until 30gm Unknown - Acetonide clear prn 05/31/2018 0.1% Cream Omeprazole 1 po qd 30caps Unknown - 20mg 07/21/[address] Medications Administered in Office Medication SIG Qnty Indications Ordering Provider Date Depomedrol 40MG Stevenson Damon M.D. 11/23/2017 Injection Depomedrol 40MG Flo Rincon MD 05/12/2017 Injection Depomedrol 40MG Lupe Dejesus M.D. 05/09/2015 Injection Depomedrol 80MG Lupe Dejesus M.D. 11/16/2014 Injection Depomedrol 80MG Lupe Dejesus M.D. 06/19/2014 Injection Vital Signs Date Vital Result Comment 10/06/2018 11:00am Height 65.5 inches 5'5.50" Weight [...] Result H/L Range Note Laboratory test 02/02/2018 [facility] Point of Care 131 mg/dL High 70-[address] Glucose [place], [place] [id number] [phone] Laboratory test 02/02/2018 [facility] Point of Care 145 mg/dL High 70-[address] Glucose [place], [place] [id number] [phone] Hla B27 11/02/2017 [facility] Hla B27 Negative [address] [place], [place] [id number] [phone] Hla B27 Interp See Comment 4 Connective Tissue 11/02/2017 [facility] Anti-Nuclear Antibody 0.3 U [address] [place] [address] [phone] Cyclic Citrullinated Peptide <15.6 U 6 Interpretation See Comment 7 Laboratory test 11/02/2017 [facility] Creatine Kinase 51 U/L N 10-223 8 [address] [place] [address] [phone] Rheumatoid Factor < 10 IU/mL N <15 9 Laboratory test 11/02/2017 [facility] C Reactive 6.90 mg/L N < 8.01 [address] [place] [address] [phone] Erythrocyte Sed Rate 35 mm/Hr N 0-40 11 Comp Metabolic Panel 08/11/2017 [facility] Sodium 136 mmol/L Low 139-[address] [place] [address] [phone] Potassium 4.1 mmol/L N 3.5-5.0 Chloride 100 [...] Egfr 54.1 >60 12 Laboratory test 03/25/2017 [facility] Surgical SEE RESULT 13, [address] [place] [address] [phone] Laboratory test 08/16/2015 [facility] Point of Care 200 mg/dL High 74-1 [address] Glucose 06 [place], [place] [address] [phone] Laboratory test 04/17/2015 [facility] Blood Urea 29 mg/dL High 6-[address] [place] [address] [phone] Creatinine 04/17/2015 [facility] Creatinine 1.21 mg/dL High 0.[address] -0.9 [place] [address] 5 [phone] Egfr Non- 44.5 N >60 Egfr 57.3 N >60 16 Basic Metabolic Panel 07/06/2013 [facility] Sodium 139 mmol/L N 133-145 [address] [place] [address] [phone] Potassium 4.2 mmol/L N 3.7-5.6 Chloride 103 mmol/L N 101-111 Co2 Carbon Dioxide 27 mmol/L N 22-32 Anion Gap 9 mmol/L N 2-11 Glucose 168 mg/dL High 70-100 Blood Urea Nitrogen 27 mg/dL High 6-24 Creatinine 0.98 mg/dL High 0.51-0.95 BUN/Creatinine Ratio 27.6 High 8-20 Calcium 9.5 mg/dL N 8.6-10.3 Egfr Non- 57.1 N >60 Egfr 73.5 N >60 17 Lipid Profile 07/06/2013 [facility] Triglycerides 130 mg/dL N 18 (Trig/Chol/HDL) [address] [place] [address] [phone] Cholesterol 258 mg/dL N 19 HDL Cholesterol 50.6 mg/dL N 20 LDL Cholesterol 181 mg/dL N 21 Laboratory test 07/06/2013 [facility] Creatine Kinase 43 U/L N 10-223 finding [address] [place] [address] [phone] Hemoglobin A1c 7.5 % High Less than 6.0 22 1 Ems Educator: [id number] 2 Ems Educator: [id number] 3 REFERENCE VALUE Not Applicable 4 RESULT: HLA-B27 antigen was not detected. ADDITIONAL INFORMATION Method: Flow Cytometry Performing Laboratory CLIA# [id number] Test Performed by: [facility] - [address] [address] 5 REFERENCE VALUE <=1.0 (Negative) 6 REFERENCE VALUE <20.0 (Negative) 7 Tests for antibodies to dsDNA and LATHA antigens are not performed automatically unless the ZAIN result is > or= 3.0 U. Studies performed at [facility] indicate that positive ZAIN results <3.0 U are rarely accompanied by positive second order tests. Test Performed by: [address] [address] 8 Please check labs this week 9 Please check labs this week 10 Please check labs this week 11 Please check labs this week 12 Because ethnic data is not always [...] NO TRACKING 14 SEE RESULT BELOW Name: JOAN ROSARIOHAILY Palm : [address]: Carmenza Mena MD Acct: [id number] Unit: [id number] AGE: 66 Location: [facility] Re03/25/17 SEX: F Status: REG REF SPEC: [id number] ALICE: 03/25/17 [facility] DR: Carmenza Mena MD REQ: [id number] RECD: 03/25/17 STATUS: MALU CARRILLO DR: Toney Cornelius MD _ ORDERED: LEVEL 1 COMMENTS: NO TRACKING FINAL DIAGNOSIS Event monitor, removal: Foreign body (event monitor) (Gross diagnosis). 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 The following inscription is identified: [employer] LINQ SN [id number] 15. Per established hospital medical staff protocol, no tissue is submitted. Gross only. Signed (signature on file) Benny Phelps MD [id number] END OF REPORT * ML=Testing performed at Main Lab DEPARTMENT OF PATHOLOGY, [address] [place] [address] Benny Phelps M.D. Director CLIA # [id number] 15 Ems Educator: [id number] JENY KELLEY 16 Because ethnic data is [...] and in selective patients <6.0%.Please refer to [place] [employer] Diabetic care guidelines for further information. Procedures Date Code Description Status 08/03/2018 13576 EKG Tracing & Interpretation Completed 02/02/2018 79418 Excision;Trochanteric Bursa Or Calcification Completed 02/02/2018 69678 Excision;Trochanteric Bursa Or Calcification Completed 01/13/2018 20201 Treadmill Interp/Report Only Completed 01/13/2018 21084 Stress Test Supervsn W/Out I/R Completed 01/07/2018 36674 EKG Tracing & Interpretation Completed 11/23/2017 17080 Inject/Drain Joint/Bursa Major W/O US Completed 08/10/2017 69514 EKG Tracing & Interpretation Completed 05/27/2017 86393 Implantable Cardio System Loop Recorder Sys Remota Data Completed Acquistio 05/27/2017 62454 Interrogation Dev Loop Recorder Incl Physician Completed Analysis,Rev,Repor 05/12/2017 32500 Inject/Drain Joint/Bursa Major W/O US Completed 04/26/2017 61343 Implantable Cardio System Loop Recorder Sys Remota Data Completed Acquistio 04/26/2017 66606 Interrogation Dev Loop Recorder Incl Physician Completed Analysis,Rev,Repor 03/26/2017 01201 Implantable Cardio System Loop Recorder Sys Remota Data Completed Acquistio 03/26/2017 93897 Interrogation Dev Loop Recorder Incl Physician Completed Analysis,Rev,Repor 03/25/2017 43721 Removal Loop Recorder Completed 02/23/2017 72571 Implantable Cardio System Loop Recorder Sys Remota Data Completed Acquistio 02/23/2017 76508 Interrogation Dev Loop Recorder Incl Physician Completed Analysis,Rev,Repor 02/17/2017 91040 ECHO Transthoracic, Real-Time 2D With Doppler And Color Completed Flow 01/23/2017 49637 Interrogation Dev Loop Recorder Incl Physician Completed Analysis,Rev,Repor 01/23/2017 81750 Implantable Cardio System Loop Recorder Sys Remota Data Completed Acquistio 01/08/2017 52909 EKG Tracing & Interpretation Completed 12/23/2016 88282 Implantable Cardio System Loop Recorder Sys Remota Data Completed Acquistio 12/23/2016 71723 Interrogation Dev Loop Recorder Incl Physician Completed Analysis,Rev,Repor 11/22/2016 64340 Implantable Cardio System Loop Recorder Sys Remota Data Completed Acquistio 11/22/2016 05843 Interrogation Dev Loop Recorder Incl Physician Completed Analysis,Rev,Repor 10/22/2016 13636 Implantable Cardio System Loop Recorder Sys Remota Data Completed Acquistio 10/22/2016 46343 Interrogation Dev Loop Recorder Incl Physician Completed Analysis,Rev,Repor 09/21/2016 97514 Interrogation Dev Loop Recorder Incl Physician Completed Analysis,Rev,Repor 09/21/2016 72092 Implantable Cardio System Loop Recorder Sys Remota Data Completed Acquistio 08/21/2016 22678 Implantable Cardio System Loop Recorder Sys Remota Data Completed Acquistio 08/21/2016 22937 Interrogation Dev Loop Recorder Incl Physician Completed Analysis,Rev,Repor 07/21/2016 12843 Implantable Cardio System Loop Recorder Sys Remota Data Completed Acquistio 07/21/2016 34169 Interrogation Dev Loop Recorder Incl Physician Completed Analysis,Rev,Repor 06/20/2016 59500 Implantable Cardio System Loop Recorder Sys Remota Data Completed Acquistio 06/20/2016 92812 Interrogation Dev Loop Recorder Incl Physician Completed Analysis,Rev,Repor 05/20/2016 77625 Implantable Cardio System Loop Recorder Sys Remota Data Completed Acquistio 05/20/2016 82518 Interrogation Dev Loop Recorder Incl Physician Completed Analysis,Rev,Repor 04/24/2016 23839 ECHO Transthoracic, Real-Time 2D With Doppler And Color Completed Flow 04/21/2016 92925 EKG Tracing & Interpretation Completed 04/19/2016 43781 Implantable Cardio System Loop Recorder Sys Remota Data Completed Acquistio 04/19/2016 71238 Interrogation Dev Loop Recorder Incl Physician Completed Analysis,Rev,Repor 03/19/2016 69767 Implantable Cardio System Loop Recorder Sys Remota Data Completed Acquistio 03/19/2016 84541 Interrogation Dev Loop Recorder Incl Physician Completed Analysis,Rev,Repor 02/17/2016 39933 Implantable Cardio System Loop Recorder Sys Remota Data Completed Acquistio 02/17/2016 46860 Interrogation Dev Loop Recorder Incl Physician Completed Analysis,Rev,Repor 01/17/2016 23753 Implantable Cardio System Loop Recorder Sys Remota Data Completed Acquistio 01/17/2016 87289 Interrogation Dev Loop Recorder Incl Physician Completed Analysis,Rev,Repor 12/17/2015 28245 Interrogation Dev Loop Recorder Incl Physician Completed Analysis,Rev,Repor 12/17/2015 68536 Implantable Cardio System Loop Recorder Sys Remota Data Completed Acquistio 11/16/2015 42056 Implantable Cardio System Loop Recorder Sys Remota Data Completed Acquistio 11/16/2015 97005 Interrogation Dev Loop Recorder Incl Physician Completed Analysis,Rev,Repor 10/16/2015 97130 Implantable Cardio System Loop Recorder Sys Remota Data Completed Acquistio 10/16/2015 38616 Interrogation Dev Loop Recorder Incl Physician Completed Analysis,Rev,Repor 09/15/2015 36345 Implantable Cardio System Loop Recorder Sys Remota Data Completed Acquistio 09/15/2015 15841 Interrogation Dev Loop Recorder Incl Physician Completed Analysis,Rev,Repor 08/16/2015 48972 Unlisted Procedure, Pelvis/Hip Completed 08/16/2015 01985 Unlisted Procedure, Pelvis/Hip Completed 08/16/2015 73971 Excision;Trochanteric Bursa Or Calcification Completed 08/15/2015 94940 Interrogation Dev Loop Recorder Incl Physician Completed Analysis,Rev,Repor 08/15/2015 34393 Implantable Cardio System Loop Recorder Sys Remota Data Completed Acquistio 07/15/2015 25750 Implantable Cardio System Loop Recorder Sys Remota Data Completed Acquistio 07/15/2015 00169 Interrogation Dev Loop Recorder Incl Physician Completed Analysis,Rev,Repor 07/10/2015 16992 EKG Tracing & Interpretation Completed 06/14/2015 49244 Implant Cardiac Loop Recorder Completed 05/09/2015 53143 Inject/Drain Joint/Bursa Major W/O US Completed 04/23/2015 96115377 Mammogram Completed 04/20/2015 49183 EKG Tracing & Interpretation Completed 11/16/2014 41102 Inject/Drain Joint/Bursa Major W/O US Completed 06/22/2014 02196 EKG Tracing & Interpretation Completed 06/19/2014 76015 Inject/Drain Joint/Bursa Major W/O US Completed 04/20/2014 64761494 Mammogram Completed 06/27/2013 81607 EKG Tracing & Interpretation Completed 06/08/2013 97760 ECHO Transthoracic, Real-Time 2D With Doppler And Color Completed Flow 07/08/2012 06466 Holter Monitoring 24 HR New Completed 06/21/2012 82795 ECHO Transthoracic, Real-Time 2D With Doppler And Color Completed Flow 06/09/2012 03970 ECHO Stress Test Incl Perf Contiuous ekg Monitoring Completed W/Phys Superv 06/09/2012 61155 ECHO Stress Test Incl Perf Contiuous ekg Monitoring Completed W/Phys Superv 05/26/2012 00121 EKG Tracing & Interpretation Completed Encounters Type Date Location Provider Dx Diagnosis Office Visit 08/03/2018 [facility] Qutaybeh S. I34.0 Nonrheumatic mitral 11:00a Jacob Thornton (valve) insufficiency I36.1 Nonrheumatic tricuspid (valve) insufficiency I10 Essential (primary) hypertension E78.2 Mixed hyperlipidemia R94.31 Abnormal electrocardiogram [ECG] [EKG] Office Visit 06/18/2018 10:45a Orthopedic Lupe Dejesus M70.61 Trochanteric Services Of ChristopherDElsa bursitis, right C.M.A. hip M76.01 Gluteal tendinitis, [...] Sacroiliitis, not elsewhere classified Office Visit 05/26/2018 [facility] Anand Smith, L30.4 Erythema intertrigo 9:40a Office Visit 01/07/2018 [facility] Dolores S. E78.4 Other hyperlipidemia 11:30a Of Yasmeen Antonio N.P. I34.0 Nonrheumatic mitral (valve) insufficiency I36.1 Nonrheumatic tricuspid (valve) insufficiency I10 Essential (primary) hypertension Office Visit 01/04/2018 10:15a Orthopedic Lupe Dejesus M76.01 Gluteal Services Of Jacob tendinitis, right C.M.A. hip M16.11 Unilateral primary osteoarthritis, right hip M25.551 Pain in right hip M70.61 Trochanteric bursitis, right hip Office Visit 11/23/2017 3:00p Orthopedic Stevenson Damon M76.01 Gluteal Services Of MElsaDElsa tendinitis, right C.M.A. hip Office Visit 11/16/2017 1:15p Orthopedic Lupe Dejesus M16.11 Unilateral primary Services Of Jacob osteoarthritis, C.M.A. right hip M25.551 Pain in [...] pelvis, subs encntr Office Visit 08/19/2017 11:30a [facility] Dolores S. E78.4 Other hyperlipidemia Cardiology Foster, N.P. I10 Essential (primary) hypertension R60.0 Localized edema Office Visit 08/12/2017 3:30p Neurosurgery Vassilios M54.5 Low back Services Of Yasmeen Monroe MD pain M46.1 Sacroiliitis, not elsewhere classified Office Visit 08/10/2017 4:40p [facility] Qutaybeh S. R60.0 Localized edema Jacob Thornton E78.4 Other hyperlipidemia I10 Essential (primary) hypertension Office Visit 08/05/2017 8:00a Orthopedic Lupe Dejesus M70.61 Trochanteric Services Of ChristopherDElsa bursitis, right C.M.A. hip M46.1 Sacroiliitis, not elsewhere classified M54.5 Low back pain Office Visit 05/12/2017 9:30a Orthopedic Flo Horowitz M75.51 Bursitis of Services Of MD Mckenzie right shoulder C.M.A. S46.011A Strain of musc/tend the rotator cuff of right shoulder, init Office Visit 02/20/2017 Neurohospitalist Toney Fuentes R55 Syncope and 3:30p Roby Cornelius M.D. collapse Office Visit 01/08/2017 [facility] Qutaybeh S. I34.0 Nonrheumatic 2:20p Hillary mitral (valve) Jacob insufficiency I10 Essential (primary) hypertension I36.1 Nonrheumatic tricuspid (valve) insufficiency R06.02 Shortness of breath Office Visit 01/07/2017 9:00a Orthopedic Services Lupe Dejesus, M54.5 Low back pain Of C.M.A. MBenson M46.1 Sacroiliitis, not elsewhere classified M70.62 Trochanteric bursitis, left hip M70.61 Trochanteric bursitis, right hip Office Visit 04/21/2016 John Fuentes I34.0 Nonrheumatic mitral 2:40p Celso Thornton M.D. (valve) insufficiency I10 Essential (primary) hypertension I36.1 Nonrheumatic tricuspid (valve) insufficiency E78.4 Other hyperlipidemia Office Visit 01/23/2016 2:45p Orthopedic Stevenson Damon, M54.42 Lumbago with Services Of Jacob sciatica, left C.M.A. side Office Visit 01/01/2016 3:45p [facility] Filomena Fuentes R5Wilner Syncope and Services Of Yasmeen Cornelius M.D. collapse Office Visit 11/26/2015 9:45a Orthopedic Eduin Murry70.62 Trochanteric Services Of Jacob bursitis, left hip C.M.A. Z48.89 Encounter for other specified surgical aftercare S39.013D Strain of muscle, fascia and tendon of pelvis, subs encntr Office Visit 08/09/2015 John Fuentes E78.2 Mixed 1:20p Celso Thornton M.D. hyperlipidemia I10 Essential (primary) hypertension I34.0 Nonrheumatic mitral (valve) insufficiency R42 Dizziness and giddiness Office Visit 07/10/2015 John Fuentes M70.62 Trochanteric 1:00p Celso Thornton M.D. bursitis, left hip M25.552 Pain in left hip Z01.810 Encounter for preprocedural cardiovascular examination E78.2 Mixed hyperlipidemia I10 Essential (primary) hypertension I34.0 Nonrheumatic mitral (valve) insufficiency Office Visit 07/10/2015 4:00p John Flores Syncope and Neurologic Jacob Cornelius collapse Services Of [facility] Office Visit 06/27/2015 11:15a Orthopedic Eduin Murry70.62 Trochanteric Services Of M.D. bursitis, left hip C.M.A. M25.552 Pain in left hip M76.02 Gluteal tendinitis, left hip M16.12 Unilateral primary osteoarthritis, left hip M16.11 Unilateral primary osteoarthritis, right hip Office Visit 06/08/2015 1:15p Orthopedic Lupe Dejesus, M70.62 Trochanteric Services Of Jacob bursitis, left hip C.M.A. M70.61 Trochanteric bursitis, right hip M16.0 Bilateral primary osteoarthritis of hip M25.551 Pain in right hip M25.552 Pain in left hip Office Visit 05/08/2015 John Fuentes I80.8 Phlebitis and 4:00p Neurologic Jacob Cornelius thrombophlebitis of Services Of [facility] other sites Office Visit 04/20/2015 John Dvais SlEsa I10 Essential (primary) 1:40p Cardiology nancy Thornton M.D. E78.2 Mixed hyperlipidemia I34.0 Nonrheumatic mitral (valve) insufficiency Office Visit 04/20/2015 9:45a Orthopedic Lupe M16.0 Bilateral primary Services Of Jacob Dejesus osteoarthritis of C.M.A. hip M70.62 Trochanteric bursitis, left hip M70.61 Trochanteric bursitis, right hip Office Visit 04/17/2015 9:00a John Fuentes I82.B21 Chronic embolism Neurologic Jacob Cornelius and thrombosis Services Of [facility] of right subclavian vein Office Visit 03/22/2015 1:10p Orthopedic Devang S92.351D Disp fx of 5th Services Of Jacob Muhammad metatarsal gretchen C.MElsaAElsa r ft, 7thD Office Visit 02/08/2015 2:30p Codi Siddiqi S92.355D Nondisp fx of Services Of Jacob Muhammad 5th metatarsal C.M.A. gretchen l ft, 7thD Office Visit 01/18/2015 4:00p Codi Siddiqi S92.355S Nondisp fx of Services Of Jacob Muhammad fifth metatarsal C.M.A. bone, left foot, sequela Office Visit 12/21/2014 12:50p Orthopedic Devang 825.29 FX Tarsal And Services Of Jacob Muhammad Metatarsal Other C.M.AElsa Office Visit 12/20/2014 2:30p Orthopedic Lupe Dejesus, 825.29 FX Tarsal And Services Of Jacob Metatarsal Other C.M.AElsa 845.00 Sprains & Strains Ankle Unspec Site 825.25 FX Other Bones Metatarsal Bone(S) Closed Office Visit 06/26/2014 1:45p Orthopedic Lupe Dejesus, 727.3 Bursitis Other Services Of Tianna James Office Visit 06/22/2014 3:00p [facility] Susan SElsa 745.5 Atrial Alba Thornton M.D. Defect Ostium Secundum Type 401.1 Hypertension Benign 272.2 Hyperlipidemia Mixed 424.0 Mitral Valve Disorder 397.0 Tricuspid Valve Disease Office Visit 06/19/2014 11:00a Orthopedic Services Lupe Dejesus, 727.3 Bursitis Other Of Tianna James 719.45 Pain Joint Pelvic Region & Thigh Office Visit 06/27/2013 8:40a [facility] Susan Fuentes 745.5 Atrial Septal Jacob Thornton Defect Ostium Secundum Type 401.1 Hypertension Benign 272.2 Hyperlipidemia Mixed 424.0 Mitral Valve Disorder 397.0 Tricuspid Valve Disease Office Visit 07/21/2012 10:00a [facility] Susan S. 780.79 Malaise And Jacob Thornton Fatigue Other 745.5 Atrial Septal Defect Ostium Secundum Type 272.2 Hyperlipidemia Mixed 250.00 Diabetes Mellitus W/O Compl Type II Or Unspec Controlled 401.1 Hypertension Benign Office 05/26/2012 [facility] Susan S. 794.31 Electrocardiogram Visit 1:40p Cardiology Jacob Thornton (ECG) (EKG) Abnormal 786.05 Shortness Of Breath 401.1 Hypertension Benign 272.2 Hyperlipidemia Mixed 250.00 Diabetes Mellitus W/O Compl Type II Or Unspec Controlled 745.5 Atrial Septal Defect Ostium Secundum Type 780.79 Malaise And Fatigue Other Plan of Treatment Future Appointment(s):10/20/2018 3:00 pm - Dion Calix MD at Orthopedic Services Of C.M.A.10/06/2018 - Shell Monroe, MDM46.1 Sacroiliitis, not elsewhere classifiedReferral:Nikhil Wang MD, Physical Medicine/ RehabFollow up: prnM51.36 Other intervertebral disc degeneration, lumbar region
--- OUTSIDE RECORDS SUMMARY | 2018-11-12 17:11 | XMS REPORT | Continuity of Care Document ---
:1950 External Reference #:[id number] Author Name Arlene Ray Care Team Providers Name Role Phone Ramona Mcpherson MD Primary Care Physician Unavailable Payers Date Identification Numbers Payment Provider Subscriber Effective: 2018 Policy Number: [id number] Medicare Marlon Palm Rosario PayID: [id number] [address] [facility] [place] [address] Expires: 2018 Policy Number: [id number] Medicare Marlon Farrpard PayID: [id number] [address] [facility] [address] Policy Number: [id number] [facility] Marlon Farrpard PayID: [id number] [address] [place] [address] Effective: 2014 Policy Number: [facility] Marlon Farrpard [id number] Options Expires: 2017 PayID: [id number] [address] [address] Attn: [place] [address] Effective: 2013 Policy Number: [id number] [employer] Marlon Farrpard Expires: 2014 PayID: [id number] [address] [address] Expires: 2013 Policy Number: [id number] [employer] Chip Rosario PayID: [id number] [address] [address] Problems Active Problems Provider Date Electrocardiogram abnormal [...] Use Denies Drug Use Smoking Status Reviewed: 10/20/18 Patient is a former quit smoking in [...] 30mg Tablets day MD Sachin Alarcon 12/20/2014 [facility] (not currently Irasema, [id number] using) Venlafaxine HCL [...] 1 po qd 60tabs Unknown - 02/19/2017 [id number] Tablets Pravastatin Sodium 1 tablet once 90tabs [...] Injection Vital Signs Date Vital Result Comment 10/20/2018 3:14pm Height 65.5 inches 5'5.50" Weight [...] Result H/L Range Note Laboratory test 02/02/2018 [facility] Point of Care 131 mg/dL High 70-100 [address] [place] [address] [phone] Laboratory test 02/02/2018 [facility] Point of Care 145 mg/dL High 70-100 [address] [place] [address] [phone] Laboratory test 11/02/2017 [facility] C Reactive 6.90 mg/L N < 8.01 [address] [place] [address] [phone] Erythrocyte Sed Rate 35 mm/Hr N 0-40 4 Hla B27 11/02/2017 [facility] Hla B27 Negative [address] [place] [address] [phone] Hla B27 Interp See Comment 6 Connective Tissue 11/02/2017 [facility] Anti-Nuclear Antibody 0.3 U [address] [place] [address] [phone] Cyclic Citrullinated Peptide <15.6 U 8 Interpretation See Comment 9 Laboratory test 11/02/2017 [facility] Creatine Kinase 51 U/L N 10-[address] [place] [address] [phone] Rheumatoid Factor < 10 IU/mL N <15 11 Comp Metabolic Panel 08/11/2017 [facility] Sodium 136 mmol/L Low 139-[address] [place] [address] [phone] Potassium 4.1 mmol/L N 3.5-5.0 Chloride 100 [...] Egfr 54.1 >60 12 Laboratory test 03/25/2017 [facility] Surgical SEE RESULT 13, [address] [place] [address] [phone] Laboratory test 08/16/2015 [facility] Point of Care 200 mg/dL High 74-[address] Gl[address] [place] [address] [phone] Laboratory test 04/17/2015 [facility] Blood Urea 29 mg/dL High 6-24 finding [address] [facility] [address] [phone] Creatinine 04/17/2015 [facility] Creatinine 1.21 mg/dL High 0.51 [address] [facility] -[address] [place] [address] [phone] Egfr Non- 44.5 N >60 Egfr 57.3 N >60 16 Basic Metabolic Panel 07/06/2013 [facility] Sodium 139 mmol/L N 133-145 [address] [place] [address] [phone] Potassium 4.2 mmol/L N 3.7-5.6 Chloride 103 mmol/L N 101-111 Co2 Carbon Dioxide 27 mmol/L N 22-32 Anion Gap 9 mmol/L N 2-11 Glucose 168 mg/dL High 70-100 Blood Urea Nitrogen 27 mg/dL High 6-24 Creatinine 0.98 mg/dL High 0.51-0.95 BUN/Creatinine Ratio 27.6 High 8-20 Calcium 9.5 mg/dL N 8.6-10.3 Egfr Non- 57.1 N >60 Egfr 73.5 N >60 17 Lipid Profile 07/06/2013 [facility] Triglycerides 130 mg/dL N 18 (Trig/Chol/HDL) [address] [place] [address] [phone] Cholesterol 258 mg/dL N 19 HDL Cholesterol 50.6 mg/dL N 20 LDL Cholesterol 181 mg/dL N 21 Laboratory test 07/06/2013 [facility] Creatine Kinase 43 U/L N 10-223 finding [address] [place] [address] [phone] Hemoglobin A1c 7.5 % High Less than 6.0 22 1 Medical Library Assistant: [id number] 2 Medical Library Assistant: [id number] 3 Please check labs this week 4 Please check labs this week 5 REFERENCE VALUE Not Applicable 6 RESULT: HLA-B27 antigen was not detected. ADDITIONAL INFORMATION Method: Flow Cytometry Performing Laboratory CLIA# [id number] Test Performed by: [facility] - [address] [address] 7 REFERENCE VALUE <=1.0 (Negative) 8 REFERENCE VALUE <20.0 (Negative) 9 Tests for antibodies to dsDNA and LATHA antigens are not performed automatically unless the ZAIN result is > or= 3.0 U. Studies performed at [facility] indicate that positive ZAIN results <3.0 U are rarely accompanied by positive second order tests. Test Performed by: [facility] - [address] [address] 10 Please check labs this week 11 [...] [address]: Carmenza Mena MD Acct: [id number] Unit: [id number] AGE: 66 Location: [facility] Re03/25/17 SEX: F Status: REG REF SPEC: [id number] ALICE: 03/25/17-[address] [facility] [address]: Carmenza Mena MD REQ: [id number] RECD: 03/25/17 STATUS: MALU CARRILLO DR: Toney Cornelius MD _ ORDERED: LEVEL 1 COMMENTS: NO TRACKING FINAL DIAGNOSIS Event monitor, removal: Foreign body (event monitor) (Gross diagnosis). 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 The following inscription is identified: [employer] LINQ SN [id number] 15. Per established hospital medical staff protocol, no tissue is submitted. Gross only. Signed (signature on file) Benny Phelps MD [id number] END OF REPORT * ML=Testing performed at Main Lab DEPARTMENT OF PATHOLOGY, [address] [place] [address] Benny Phelps M.D. Director [facility] # [id number] 15 Medical Library Assistant: [id number] JENY KELLEY 16 Because ethnic data is [...] and in selective patients <6.0%.Please refer to [place] [employer] Diabetic care guidelines for further information. Procedures Date Code Description Status 08/03/2018 19262 EKG Tracing & Interpretation Completed 02/02/2018 59266 Excision;Trochanteric Bursa Or Calcification Completed 02/02/2018 08520 Excision;Trochanteric Bursa Or Calcification Completed 01/13/2018 85089 Treadmill Interp/Report Only Completed 01/13/2018 43048 Stress Test Supervsn W/Out I/R Completed 01/07/2018 99932 EKG Tracing & Interpretation Completed 11/23/2017 81614 Inject/Drain Joint/Bursa Major W/O US Completed 08/10/2017 15027 EKG Tracing & Interpretation Completed 05/27/2017 19292 Implantable Cardio System Loop Recorder Sys Remota Data Completed Acquistio 05/27/2017 56947 Interrogation Dev Loop Recorder Incl Physician Completed Analysis,Rev,Repor 05/12/2017 05636 Inject/Drain Joint/Bursa Major W/O US Completed 04/26/2017 75782 Implantable Cardio System Loop Recorder Sys Remota Data Completed Acquistio 04/26/2017 44823 Interrogation Dev Loop Recorder Incl Physician Completed Analysis,Rev,Repor 03/26/2017 46679 Implantable Cardio System Loop Recorder Sys Remota Data Completed Acquistio 03/26/2017 98502 Interrogation Dev Loop Recorder Incl Physician Completed Analysis,Rev,Repor 03/25/2017 55061 Removal Loop Recorder Completed 02/23/2017 91126 Implantable Cardio System Loop Recorder Sys Remota Data Completed Acquistio 02/23/2017 83268 Interrogation Dev Loop Recorder Incl Physician Completed Analysis,Rev,Repor 02/17/2017 04965 ECHO Transthoracic, Real-Time 2D With Doppler And Color Completed Flow 01/23/2017 63122 Interrogation Dev Loop Recorder Incl Physician Completed Analysis,Rev,Repor 01/23/2017 63983 Implantable Cardio System Loop Recorder Sys Remota Data Completed Acquistio 01/08/2017 57212 EKG Tracing & Interpretation Completed 12/23/2016 02848 Implantable Cardio System Loop Recorder Sys Remota Data Completed Acquistio 12/23/2016 79488 Interrogation Dev Loop Recorder Incl Physician Completed Analysis,Rev,Repor 11/22/2016 30117 Implantable Cardio System Loop Recorder Sys Remota Data Completed Acquistio 11/22/2016 96951 Interrogation Dev Loop Recorder Incl Physician Completed Analysis,Rev,Repor 10/22/2016 60388 Implantable Cardio System Loop Recorder Sys Remota Data Completed Acquistio 10/22/2016 78140 Interrogation Dev Loop Recorder Incl Physician Completed Analysis,Rev,Repor 09/21/2016 12174 Interrogation Dev Loop Recorder Incl Physician Completed Analysis,Rev,Repor 09/21/2016 17784 Implantable Cardio System Loop Recorder Sys Remota Data Completed Acquistio 08/21/2016 47472 Implantable Cardio System Loop Recorder Sys Remota Data Completed Acquistio 08/21/2016 14404 Interrogation Dev Loop Recorder Incl Physician Completed Analysis,Rev,Repor 07/21/2016 71979 Implantable Cardio System Loop Recorder Sys Remota Data Completed Acquistio 07/21/2016 08778 Interrogation Dev Loop Recorder Incl Physician Completed Analysis,Rev,Repor 06/20/2016 34740 Implantable Cardio System Loop Recorder Sys Remota Data Completed Acquistio 06/20/2016 44456 Interrogation Dev Loop Recorder Incl Physician Completed Analysis,Rev,Repor 05/20/2016 20604 Implantable Cardio System Loop Recorder Sys Remota Data Completed Acquistio 05/20/2016 83046 Interrogation Dev Loop Recorder Incl Physician Completed Analysis,Rev,Repor 04/24/2016 96597 ECHO Transthoracic, Real-Time 2D With Doppler And Color Completed Flow 04/21/2016 06349 EKG Tracing & Interpretation Completed 04/19/2016 07084 Implantable Cardio System Loop Recorder Sys Remota Data Completed Acquistio 04/19/2016 62487 Interrogation Dev Loop Recorder Incl Physician Completed Analysis,Rev,Repor 03/19/2016 35985 Implantable Cardio System Loop Recorder Sys Remota Data Completed Acquistio 03/19/2016 22532 Interrogation Dev Loop Recorder Incl Physician Completed Analysis,Rev,Repor 02/17/2016 92349 Implantable Cardio System Loop Recorder Sys Remota Data Completed Acquistio 02/17/2016 81626 Interrogation Dev Loop Recorder Incl Physician Completed Analysis,Rev,Repor 01/17/2016 44676 Implantable Cardio System Loop Recorder Sys Remota Data Completed Acquistio 01/17/2016 41022 Interrogation Dev Loop Recorder Incl Physician Completed Analysis,Rev,Repor 12/17/2015 12109 Interrogation Dev Loop Recorder Incl Physician Completed Analysis,Rev,Repor 12/17/2015 34274 Implantable Cardio System Loop Recorder Sys Remota Data Completed Acquistio 11/16/2015 20306 Implantable Cardio System Loop Recorder Sys Remota Data Completed Acquistio 11/16/2015 29522 Interrogation Dev Loop Recorder Incl Physician Completed Analysis,Rev,Repor 10/16/2015 59132 Implantable Cardio System Loop Recorder Sys Remota Data Completed Acquistio 10/16/2015 35428 Interrogation Dev Loop Recorder Incl Physician Completed Analysis,Rev,Repor 09/15/2015 08500 Implantable Cardio System Loop Recorder Sys Remota Data Completed Acquistio 09/15/2015 10109 Interrogation Dev Loop Recorder Incl Physician Completed Analysis,Rev,Repor 08/16/2015 11934 Unlisted Procedure, Pelvis/Hip Completed 08/16/2015 56568 Unlisted Procedure, Pelvis/Hip Completed 08/16/2015 06777 Excision;Trochanteric Bursa Or Calcification Completed 08/15/2015 93329 Interrogation Dev Loop Recorder Incl Physician Completed Analysis,Rev,Repor 08/15/2015 49936 Implantable Cardio System Loop Recorder Sys Remota Data Completed Acquistio 07/15/2015 60521 Implantable Cardio System Loop Recorder Sys Remota Data Completed Acquistio 07/15/2015 56586 Interrogation Dev Loop Recorder Incl Physician Completed Analysis,Rev,Repor 07/10/2015 55789 EKG Tracing & Interpretation Completed 06/14/2015 38079 Implant Cardiac Loop Recorder Completed 05/09/201531437 Inject/Drain Joint/Bursa Major W/O US Completed 04/23/2015 26599209 Mammogram Completed 04/20/2015 02712 EKG Tracing & Interpretation Completed 11/16/2014 34357 Inject/Drain Joint/Bursa Major W/O US Completed 06/22/2014 16108 EKG Tracing & Interpretation Completed 06/19/2014 35537 Inject/Drain Joint/Bursa Major W/O US Completed 04/20/2014 05868687 Mammogram Completed 06/27/2013 85674 EKG Tracing & Interpretation Completed 06/08/2013 01367 ECHO Transthoracic, Real-Time 2D With Doppler And Color Completed Flow 07/08/2012 80217 Holter Monitoring 24 HR New Completed 06/21/2012 69933 ECHO Transthoracic, Real-Time 2D With Doppler And Color Completed Flow 06/09/2012 96464 ECHO Stress Test Incl Perf Contiuous ekg Monitoring Completed W/Phys Superv 06/09/2012 78872 ECHO Stress Test Incl Perf Contiuous ekg Monitoring Completed W/Phys Superv 05/26/2012 85575 EKG Tracing & Interpretation Completed Encounters Type Date Location Provider Dx Diagnosis Office Visit 08/03/2018 [facility] Qutaybeh S. I34.0 Nonrheumatic mitral 11:00a [...] Sacroiliitis, not elsewhere classified Office Visit 05/26/2018 [facility] Dermatology Anand Smith, L30.4 Erythema intertrigo 9:40a Office Visit 01/07/2018 [facility] Dolores S. E78.4 Other hyperlipidemia 11:30a [...] Orthopedic Stevenson Damon, M76.01 Gluteal Services Of ChristopherD. tendinitis, right C.M.A. hip Office Visit 11/16/2017 1:15p Orthopedic Lupe Dejesus, M16.11 Unilateral primary Services Of Jacob osteoarthritis, [...] pelvis, subs encntr Office Visit 08/19/2017 11:30a [place] Dolores S. E78.4 Other hyperlipidemia Cardiology Foster, N.P. I10 Essential (primary) hypertension R60.0 Localized edema Office Visit 08/12/2017 3:30p Neurosurgery Vassilios M54.5 Low back Services Of Yasmeen Monroe MD pain M46.1 Sacroiliitis, not elsewhere classified Office Visit 08/10/2017 4:40p [facility] Qutaybeh S. R60.0 Localized edema Jacob Thornton E78.4 Other hyperlipidemia I10 Essential (primary) hypertension Office Visit 08/05/2017 8:00a Orthopedic Lupe Dejesus, M70.61 Trochanteric Services Of MElsaDElsa bursitis, right C.M.A. hip M46.1 Sacroiliitis, not elsewhere classified M54.5 Low back pain Office Visit 05/12/2017 9:30a Orthopedic Flo F M75.51 Bursitis of Services Of MD Mckenzie right shoulder C.M.A. S46.011A Strain of musc/tend the rotator cuff of right shoulder, init Office Visit 02/20/2017 Neurohospitalist Toney Fuentes R5Wilner Syncope and 3:30p Roby Cornelius M.D. collapse Office Visit 01/08/2017 [facility] Susan S. I34.0 Nonrheumatic 2:20p Hillary mitral (valve) Jacob insufficiency I10 Essential (primary) hypertension I36.1 Nonrheumatic tricuspid (valve) insufficiency R06.02 Shortness of breath Office Visit 01/07/2017 9:00a Orthopedic Services Lupe Dejesus M54.5 Low back pain Of C.M.A. MBenson M46.1 Sacroiliitis, not elsewhere classified M70.62 Trochanteric bursitis, left hip M70.61 Trochanteric bursitis, right hip Office Visit 04/21/2016 [facility] Davis S. I34.0 Nonrheumatic mitral 2:40p Cardiology Jacob Thornton (valve) insufficiency I10 Essential (primary) hypertension I36.1 Nonrheumatic tricuspid (valve) insufficiency E78.4 Other hyperlipidemia Office Visit 01/23/2016 2:45p Orthopedic Stevenson Damon M54.42 Lumbago with Services Of Jacob sciatica, left C.M.A. side Office Visit 01/01/2016 3:45p [place] [facility] Toney Flores Syncope and Services Of [...] and Neurologic Jacob Cornelius collapse Services Of [facility] Office Visit 06/27/2015 11:15a Orthopedic Lupe Dejesus M70.62 Trochanteric Services Of [...] Neurologic Jacob Cornelius thrombophlebitis of Services Of [facility] other sites Office Visit 04/20/2015 [facility] Davis SElsa I10 Essential (primary) 1:40p Cardiology Hillary, hypertension Jacob E78.2 Mixed hyperlipidemia I34.0 Nonrheumatic mitral (valve) insufficiency Office Visit 04/20/2015 9:45a Orthopedic Lupe M16.0 Bilateral primary Services Of Jacob Dejesus osteoarthritis of C.M.A. hip M70.62 Trochanteric bursitis, left hip M70.61 Trochanteric bursitis, right hip Office Visit 04/17/2015 9:00a John Fuentes I82.B21 Chronic embolism Neurologic Jacob Cornelius and thrombosis Services Of [facility] of right subclavian vein Office Visit 03/22/2015 1:10p Orthopedic Devang Mayo.351D Disp fx of 5th Services Of Jacob Muhammad metatarsal bone, C.M.A. r yvette, 7thD Office Visit 02/08/2015 2:30p Orthopedic Devang Mayo.355D Nondisp fx of Services Of Jacob Muhammad 5th metatarsal C.M.A. bone, l ft, 7thD Office Visit 01/18/2015 4:00p Orthopedic Devang S92.355S Nondisp fx of Services Of Jacob Muhammad fifth metatarsal C.M.A. bone, left foot, sequela Office Visit 12/21/2014 12:50p Orthopedic Devang 825.29 FX Tarsal And Services Of Jacob Muhammad Metatarsal Other C.M.AElsa Office Visit 12/20/2014 2:30p Orthopedic Lupe Dejesus 825.29 FX Tarsal And Services Desiree James Metatarsal Other C.M.AElsa 845.00 Sprains & Strains Ankle Unspec Site 825.25 FX Other Bones Metatarsal Bone(S) Closed Office Visit 06/26/2014 1:45p Orthopedic Lupe Dejesus 727.3 Bursitis Other Services Of Tianna James Office Visit 06/22/2014 3:00p [facility] Susan S. 745.5 Atrial Alba Thornton M.D. Defect Ostium Secundum Type 401.1 Hypertension Benign 272.2 Hyperlipidemia Mixed 424.0 Mitral Valve Disorder 397.0 Tricuspid Valve Disease Office Visit 06/19/2014 11:00a Orthopedic Services Lupe Dejesus 727.3 Bursitis Other Of Tianna James 719.45 Pain Joint Pelvic Region & Thigh Office Visit 06/27/2013 8:40a [facility] Susan S. 745.5 Atrial Septal Jacob Thornton Defect Ostium Secundum Type 401.1 Hypertension Benign 272.2 Hyperlipidemia Mixed 424.0 Mitral Valve Disorder 397.0 Tricuspid Valve Disease Office Visit 07/21/2012 10:00a [facility] Krystinybdimple S. 780.79 Malaise And Jacob Thornton Fatigue Other 745.5 Atrial Septal Defect Ostium Secundum Type 272.2 Hyperlipidemia Mixed 250.00 Diabetes Mellitus W/O Compl Type II Or Unspec Controlled 401.1 Hypertension Benign Office 05/26/2012 [place] Susan S. 794.31 Electrocardiogram Visit 1:40p Cardiology Jacob Thornton (ECG) (EKG) Abnormal 786.05 Shortness Of Breath 401.1 Hypertension Benign 272.2 Hyperlipidemia Mixed 250.00 Diabetes Mellitus W/O Compl Type II Or Unspec Controlled 745.5 Atrial Septal Defect Ostium Secundum Type 780.79 Malaise And Fatigue Other Plan of Treatment Future Appointment(s):10/28/2018 1:30 pm - RAIMN Collado at [facility].10/20/2018 - PRINCESS Gillespie82.64xA Nondisplaced fracture of lateral malleolus of right fibula,New Xrays:Ankle Right 3+VWS, Ordered: 10/20Follow up:Follow Up: 1 week with Juan Diego82.401A Unspecified fracture of shaft of right fibula, initial encou
[2018-11-12] MEDS ORDERED: NS 0.9% 1000 ML** 1,000 ML IV ONE (17:43)
[2018-11-12] MEDS ORDERED: Morphine 4 MG/ML VIAL (1 ml) 4 MG/ML VIAL IV ONE ×2 (17:43→19:06)
--- NOTE | 2018-11-12 17:52 | ED ---
GI/ HPI - HPI Summary HPI Summary: 68-year-old female presents with abdominal pain for the past couple days. She states she was seen in the ER in [facility]. she was diagnosis colitis and started on Flagyl and pain medication. States that her pain wax and wane but is unable to control pain with oral meds. She denies any fevers. No chest pain or shortness breath. No cough. No urinary symptoms. No diarrhea. Has been having constipation. No nausea vomiting. never had this pain before. Has had issues with her pancreas before and sees dr epstein. Never had this pain before. - History of Current Complaint Chief Complaint: EDAbdPain Time Seen by Provider: 11/12/18 17:32 Stated Complaint: COLITIS PER PT Pain Intensity: 7 - Allergy/Home Medications Allergies/Adverse Reactions: Allergies Allergy/AdvReac Type Severity Reaction Status Date / Time latex Allergy Severe Rash Verified 11/12/18 16:40 Sulfa (Sulfonamide Allergy Intermediate Nausea And Verified 11/12/18 16:40 Antibiotics) Vomiting PMH/Surg Hx/FS Hx/Imm Hx Endocrine/Hematology History: Reports: Hx Diabetes - TYPE 2, ON ORAL MEDS, Hx Thyroid Disease - "2 nodules" Denies: Hx Systemic Lupus Erythematosus, Hx Anemia Cardiovascular History: Reports: Hx Angina, Hx Cardiomegaly - ENLARGED HEART WHEN AST FOUND, BACK TO NORMAL SIZE AFTER REPAIR, Hx Coronary Artery Disease, Hx Hypercholesterolemia, Hx Hypertension - lisinopril, Hx Valvular Heart Disease - Mitral reguritation, Atrial Septal Defect-repaired, Other Cardiovascular Problems/Disorders - Mild pulmonary hypertension Denies: Hx Congestive Heart Failure, Hx Myocardial Infarction, Hx Pacemaker/ ICD Respiratory History: Denies: Hx Asthma, Hx Chronic Obstructive Pulmonary Disease (COPD), Other Respiratory Problems/Disorders GI History: Reports: Hx Gastroesophageal Reflux Disease - pantoprazole, Other GI Disorders - Pancreatitis-duct stent placed 10 years ago, fatty liver Denies: Hx Jaundice History: Reports: Hx Renal Disease - abnormal gfr, Other Problems/ Disorders - STATES "PROBLEM WITH KIDNEYS R/T MEDICATION, GOES UP AND DOWN." Denies: Hx Dialysis Musculoskeletal History: Reports: Hx Arthritis - MILD ARTHRITIS IN BOTH HIPS, Hx Bursitis - BILATERAL HIPS, Hx Tendonitis - Bilateral hips, Other Musculoskeletal History - Lower back wjcx-agbwfqesa-vfimrokdn injections Denies: Hx Rheumatoid Arthritis, Hx Osteoporosis Sensory History: Reports: Hx Cataracts - Bilateral, Hx Contacts or Glasses - Glasses for reading and driving Denies: Hx Hearing Aid Opthamlomology History: Reports: Hx Cataracts - Bilateral, Hx Contacts or Glasses - Glasses for reading and driving Neurological History: Reports: Hx Migraine - PT STATES 30 YEARS AGO, Other Neuro Impairments/Disorders - PAIN CLINIC PATIENT Psychiatric History: Reports: Hx Anxiety, Hx Depression - ON MEDS FOR Denies: Hx Panic Disorder - Cancer History Hx Chemotherapy: No Hx Radiation Therapy: No - Surgical History Surgery Procedure, Year, and Place: 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 PANCREATIC DUCT STENT- 2005- [place] (REMOVED NOW)--. LEFT HIP BURSECTOMY & ABDUCTOR TENDON REPAIR(metal anchor in place) 2015. Repair ASD (atrial septal defect) -1997- [place]. THYROID NODULE- REMOVED- LAST 10YEARS- [facility] [place] MOLINA. CHOLESYSTECTOMY-15 YEARS AGO- [facility] [place]. RIGHT BREAST CYST REMOVED- 10 YEARS AGO- [facility]. Mastoidectomy left EAR- 40 YEARS AGO- [place] [facility]. Appendectomy- 40 YEARS AGO- [place] [facility]. FALLOPIAN TUBE REMOVED (UNSURE WHICH SIDE)-40 YEARS AGO-[place] [facility]. T&A- A CHILD- [facility]. Right Hip bursectomy 2017- [facility] [place] Hx Anesthesia Reactions: No - Immunization History Date of Tetanus Vaccine: UNK Date of Influenza Vaccine: UNK Infectious Disease History: No Infectious Disease History: Denies: Traveled Outside the [place] in Last 30 Days - Family History Known Family History: Positive: None Family History: Father with cataracts and macular degeneration - Social History Alcohol Use: None Alcohol Amount: 1 drink/wk Substance Use Type: Reports: None Hx Tobacco Use: No Smoking Status (MU): Former Smoker Amount Used/How Often: 1 PACK ADAY Have You Smoked in the Last Year: No Review of Systems Negative: Fever Negative: Chest Pain Negative: Shortness Of Breath Positive: Abdominal Pain. Negative: Vomiting, Diarrhea, Nausea All Other Systems Reviewed And Are Negative: Yes Physical Exam Triage Information Reviewed: Yes Vital Signs On Initial Exam: Initial Vitals Temp Pulse Resp BP Pulse Ox 97.6 F 90 16 120/64 97 11/12/18 16:37 11/12/18 16:37 11/12/18 16:37 11/12/18 16:37 11/12/18 16:37 Vital Signs Reviewed: Yes Appearance: Positive: Well-Appearing Skin: Positive: Warm, Dry Head/Face: Positive: Normal Head/Face Inspection Eyes: Positive: Normal, Conjunctiva Clear ENT: Positive: Pharynx normal Respiratory/Lung Sounds: Positive: Clear to Auscultation, Breath Sounds Present Cardiovascular: Positive: Normal, RRR Abdomen Description: Positive: Soft, Other: - tenderness in LLQ Bowel Sounds: Positive: Present Musculoskeletal: Positive: Normal Neurological: Positive: Normal Psychiatric: Positive: Normal Diagnostics - Vital Signs Vital Signs Temp Pulse Resp BP Pulse Ox 11/12/18 17:37 17 11/12/18 16:37 97.6 F 90 16 120/64 97 - Laboratory Result Diagrams: 11/12/18 18:20 11/12/18 18:20 Lab Statement: Any lab studies that have been ordered have been reviewed, and results considered in the medical decision making process. - CT abd CT Interpretation Completed By: Radiologist Summary of CT Findings: IMPRESSION: 1. Wall thickening involving mid left colon through proximal sigmoid colon with. adjacent inflammatory stranding, possibly representing focal colitis. Diverticulitis less likely as no diverticula are clearly identified. Recommend. radiographic followup to ensure complete clearing as underlying malignancy. cannot be excluded. 2. Small amount of free fluid in pelvis. 3. Hiatal hernia with retained fluid and lower esophagus suggesting reflux or. GERD. 4. Post cholecystectomy and hysterectomy. 5. Coronary artery disease. Other nonemergent findings as above. Re-Evaluation - Re-Evaluation First Eval Re-Evaluation Time: 19:06 Change: Unchanged Comment: pain still present, will give another dose of morphine Second Eval Re-Evaluation Time: 20:00 Change: Unchanged Comment: pain unchanged Third Eval Re-Evaluation Time: 20:41 Comment: pain better but now nauseous Fourth Eval Re-Evaluation Time: 21:18 Change: Improved Comment: feeling better discussed going home vs admission and patient would like to try at home GIGU Course/Dx - Course Course Of Treatment: 68-year-old female presents with abdominal pain for the past couple days. She states she was seen in the ER in [facility]. she was diagnosis colitis and started on Flagyl and pain medication. States that her pain wax and wane but is unable to control pain with oral meds. She denies any fevers. No chest pain or shortness breath. No cough. No urinary symptoms. No diarrhea. Has been having constipation. No nausea vomiting. never had this pain before. Has had issues with her pancreas before and sees dr epstein. Never had this pain before. On exam has tenderness in left lower quadrant. with worsening pain will get repeat CT. wbc normal. lipase normal. crp elevated. CT shows colitis. will add on augmentin. discussed that oxycodone works for pain so will change to that medication as norco is not working. gave colace for constipation. told follow up with GI. patient understand and agrees with plan. - Diagnoses Differential Diagnoses - Female: Colitis, Diverticulitis, Urinary Tract Infection Provider Diagnoses: Colitis Discharge - Sign-Out/Discharge Documenting (check all that apply): Patient Departure Patient Received Moderate/Deep Sedation with Procedure: No - Discharge Plan Condition: Good Disposition: HOME Prescriptions: Amoxicillin/Clavulanate TAB* [Augmentin TAB 875*] 875 mg PO BID #13 tab Docusate CAP* [Colace Cap*] 100 mg PO BID #20 cap oxyCODONE TAB* [Roxycodone TAB 5 mg*] 5 mg PO Q4H PRN #20 tab MDD 6 PRN Reason: Pain - Severe Patient Education Materials: Colitis (ED) Referrals: Ramona Maurice MD [Primary Care Provider] - Piotr Epstein MD [Medical Doctor] - Additional Instructions: take augmentin twice a day for 7 days, continue flagyl use oxycodone every 4-6 hours for pain follow bland diet until symptoms improve Take colace twice a day Follow up with GI Return to ED if develop any new or worsening symptoms - Billing Disposition and Condition Condition: GOOD Disposition: Home
[2018-11-12 18:36] LABS: ABS Eosinophils 0.1 10^3/ul (0-0.6); ABS Lymphocytes 1.1 10^3/ul (1.0-4.8); ABS Monocytes 0.6 10^3/ul (0-0.8); ABS Neutrophils 6.4 10^3/ul (1.5-7.7); Eosinophil % 1.7 %; Hematocrit 32 % (35-47); Hemoglobin 10.6 g/dL (12.0-16.0); Lymphocyte % 12.9 %; Mean Corpuscular HGB Conc 33 g/dL (31-36); Mean Corpuscular Hemoglobin 28 pg (27-31); Mean Corpuscular Volume 85 fL (80-97); Mean Platelet Volume 9.9 fL (7.4-10.4); Nucleated Red Blood Cells % 0.1; Platelet Count 160 10^3/uL (150-450); Red Blood Count 3.78 10^6 /uL (3.70-4.87); Red Cell Distribution Width 15 % (10-15); White Blood Count 8.2 10^3/uL (3.5-10.8)
[2018-11-12 18:52] LABS: Albumin 3.9 g/dL (3.2-5.2); Albumin/Globulin Ratio 1.1 (1-3); BUN/Creatinine Ratio 17.8 (8-20); C Reactive Protein 113.95 mg/L (<8.01); Calcium 9.9 mg/dL (8.6-10.3); EGFR African American 46.9 (>60); EGFR Non-African American 38.8 (>60); Globulin 3.4 g/dL (2-4); Magnesium 1.7 mg/dL (1.9-2.7); Potassium 4.2 mmol/L (3.5-5.0); Total Bilirubin 0.4 mg/dL (0.2-1.0); Total Protein 7.3 g/dL (6.4-8.9)
[2018-11-12] MEDS ORDERED: Magnesium Sulfate 1 GM IV* 1 GM/100 ML BAG IV ONE (19:07)
[2018-11-12] MEDS ORDERED: Iodixanol* (CONTRAST) 320 MG/ML 100 ML SDV IV ONE (19:31)
[2018-11-12] MEDS ORDERED: HYDROmorphone INJ1* 1 MG/ML SYRINGE IV ONE (19:59)
[2018-11-12 20:01] LABS: Urine Appearance Clear; Urine Bacteria 1+ (Absent); Urine Bilirubin Negative (Negative); Urine Blood Negative (Negative); Urine Color Yellow; Urine Glucose 3+(>=500 mg/dL) (Negative); Urine Ketones Negative (Negative); Urine Nitrite Negative (Negative); Urine Protein Negative (Negative); Urine Red Blood Cell 2+(6-10/hpf) (Absent); Urine Specific Gravity 1.007 (1.010-1.030); Urine Urobilinogen Negative (Negative); Urine White Blood Cell Trace(0-5/hpf) (Absent)
[2018-11-12] MEDS ORDERED: Ondansetron INJ* 2 MG/ML VIAL IV ONE (20:33)
[2018-11-12] MEDS ORDERED: Amoxicillin/Clavulanate TAB* 875 MG PO ONE (21:13)
[2018-11-12 22:42] VITALS: BP 146/82
== END 2018-11-12 22:42 | disposition home or self-care (01) ==
LOC: ED 16:35
DX: K52.9 Noninfective gastroenteritis and colitis, unspecified (principal); Z88.2 Allergy status to sulfonamides; Z91.040 Latex allergy status; E11.9 Type 2 diabetes mellitus without complications; E04.2 Nontoxic multinodular goiter; Z79.84 Long term (current) use of oral hypoglycemic drugs; Z79.899 Other long term (current) drug therapy; K21.9 Gastro-esophageal reflux disease without esophagitis; F41.9 Anxiety disorder, unspecified; Z87.891 Personal history of nicotine dependence; I25.119 Atherosclerotic heart disease of native coronary artery with unspecified angina pectoris; K44.9 Diaphragmatic hernia without obstruction or gangrene; Z90.49 Acquired absence of other specified parts of digestive tract; Z90.710 Acquired absence of both cervix and uterus
CPT/HCPCS: 36415; 74177; 80053; 81003; 81015; 82150; 83605; 83690; 83735; 85025; 86140; 87086; 96361; 96365; 96366; 96375; 96376; 99283; A9270-GY; J1170; J2270; J2405; J3475; Q9967

== ENCOUNTER 2018-11-15 15:54 | Inpatient (IN) | payer MEDICARE ==
[2018-11-15 17:36] LABS: ABS Eosinophils 0.1 10^3/ul (0-0.6); ABS Lymphocytes 1.1 10^3/ul (1.0-4.8); ABS Monocytes 0.6 10^3/ul (0-0.8); ABS Neutrophils 3.6 10^3/ul (1.5-7.7); Hematocrit 34 % (35-47); Hemoglobin 11.4 g/dL (12.0-16.0); Lymphocyte % 20.7 %; Mean Corpuscular HGB Conc 33 g/dL (31-36); Mean Corpuscular Hemoglobin 29 pg (27-31); Mean Corpuscular Volume 86 fL (80-97); Platelet Count 232 10^3/uL (150-450); Red Cell Distribution Width 16 % (10-15); White Blood Count 5.5 10^3/uL (3.5-10.8)
--- NOTE | 2018-11-15 17:36 | ED ---
Abdominal Pain/Female - HPI Summary HPI Summary: The patient is a 68 y/o F presenting to [facility] accompanied by daughter with a chief complaint of LLQ abd pain without improvement since being here three days ago. She reports that she is unable to control the sharp cramping pain, and she s only had one BM in the last week, which was today, and it was diarrhea. She additionally c/o edema in the BLE. She denies any fever, chills, diaphoresis, erythema of eyes, sore throat, CP, SOB, N/V, blood with stool, dysuria, hematuria, myalgia, rash, or dizziness. Her pain is currently rated 7/10 in severity. She has taken 2mg PO Oxycodone at 1500 today that was prescribed last week along with abx when diagnosed with colitis. She states she would like to see if she can talk to Dr. Epstein because she had seen her for hx of pancreatitis. PMHx: DM, thyroid disease, angina, cardiomegaly, CAD, HLD, HTN, mitral regurgitation, GERD, renal disease, pancreatitis (five times), cholecystectomy. Former smoker, no EtOH, no substance use. - History of Current Complaint Chief Complaint: EDSusanin Stated Complaint: SEVERE ABDOMINAL PAIN PER PT Time Seen by Provider: 11/15/18 17:35 Hx Obtained From: Patient Onset/Duration: Lasting Days, Still Present Timing: Days Severity Initially: Moderate Severity Currently: Severe Pain Intensity: 7 Pain Scale Used: 0-10 Numeric Location: Discrete At: LLQ Radiates: No Character: Sharp, Cramping Alleviating Factor(s): Nothing - Oxycodone and abx to no relief Associated Signs and Symptoms: Positive: Constipation, Diarrhea - one episode, Other: - POSITIE: edema; NEGATIVE: chills, erythema of eyes, sore throat, SOB, mylagia, rash. Negative: Diaphoresis, Fever, Cough, Chest Pain, Dizzy, Blood in Stool, Urinary Symptoms - dysuria, hematuria, Nausea, Vomiting Allergies/Adverse Reactions: Allergies Allergy/AdvReac Type Severity Reaction Status Date / Time latex Allergy Severe Rash Verified 11/15/18 16:00 Sulfa (Sulfonamide Allergy Intermediate Nausea And Verified 11/15/18 16:00 Antibiotics) Vomiting Home Medications: Home Medications Aspirin EC TAB* [Ecotrin EC Low Dose 81 MG*] 81 mg PO DAILY 11/15/18 [History Confirmed 11/15/18] Cholecalciferol (Vitamin D3) [Vitamin D3] 50 mcg PO DAILY 11/15/18 [History Confirmed 11/15/18] Potassium 1,100 mg PO DAILY 11/15/18 [History Confirmed 11/15/18] metroNIDAZOLE * [Flagyl] 500 mg PO Q8H 11/15/18 [History Confirmed 11/15/18] PMH/Surg Hx/FS Hx/Imm Hx Endocrine/Hematology History: Reports: Hx Diabetes - TYPE 2, ON ORAL MEDS, Hx Thyroid Disease - "2 nodules" Denies: Hx Systemic Lupus Erythematosus, Hx Anemia Cardiovascular History: Reports: Hx Angina, Hx Cardiomegaly - ENLARGED HEART WHEN AST FOUND, BACK TO NORMAL SIZE AFTER REPAIR, Hx Coronary Artery Disease, Hx Hypercholesterolemia, Hx Hypertension - lisinopril, Hx Valvular Heart Disease - Mitral reguritation, Atrial Septal Defect-repaired, Other Cardiovascular Problems/Disorders - Mild pulmonary hypertension Denies: Hx Congestive Heart Failure, Hx Myocardial Infarction, Hx Pacemaker/ ICD Respiratory History: Denies: Hx Asthma, Hx Chronic Obstructive Pulmonary Disease (COPD), Other Respiratory Problems/Disorders GI History: Reports: Hx Gastroesophageal Reflux Disease - pantoprazole, Other GI Disorders - Pancreatitis-duct stent placed 10 years ago, fatty liver Denies: Hx Jaundice History: Reports: Hx Renal Disease - abnormal gfr, Other Problems/ Disorders - STATES "PROBLEM WITH KIDNEYS R/T MEDICATION, GOES UP AND DOWN." Denies: Hx Dialysis Musculoskeletal History: Reports: Hx Arthritis - MILD ARTHRITIS IN BOTH HIPS, Hx Bursitis - BILATERAL HIPS, Hx Tendonitis - Bilateral hips, Other Musculoskeletal History - Lower back fyxr-ihgdmjpya-bcldbsvca injections Denies: Hx Rheumatoid Arthritis, Hx Osteoporosis Sensory History: Reports: Hx Cataracts - Bilateral, Hx Contacts or Glasses - Glasses for reading and driving Denies: Hx Hearing Aid Opthamlomology History: Reports: Hx Cataracts - Bilateral, Hx Contacts or Glasses - Glasses for reading and driving Neurological History: Reports: Hx Migraine - PT STATES 30 YEARS AGO, Other Neuro Impairments/Disorders - PAIN CLINIC PATIENT Psychiatric History: Reports: Hx Anxiety, Hx Depression - ON MEDS FOR Denies: Hx Panic Disorder - Cancer History Hx Chemotherapy: No Hx Radiation Therapy: No - Surgical History Surgery Procedure, Year, and Place: 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 PANCREATIC DUCT STENT- 2005- [place] (REMOVED NOW)--. LEFT HIP BURSECTOMY & ABDUCTOR TENDON REPAIR(metal anchor in place) 2016. Repair ASD (atrial septal defect) -1997- [place]. THYROID NODULE- REMOVED- LAST 10YEARS- [facility] [place]- [place] MOLINA. CHOLESYSTECTOMY-15 YEARS AGO- [facility] [place]. RIGHT BREAST CYST REMOVED- 10 YEARS AGO- [facility]. Mastoidectomy left EAR- 40 YEARS AGO- [place]. Appendectomy- 40 YEARS AGO- [place]. FALLOPIAN TUBE REMOVED (UNSURE WHICH SIDE)-40 YEARS AGO-[place] [facility]. T&A- A CHILD- [facility]. Right Hip bursectomy 2017- [facility] [place] Hx Anesthesia Reactions: No - Immunization History Date of Tetanus Vaccine: UNK Date of Influenza Vaccine: UNK Infectious Disease History: No Infectious Disease History: Denies: Traveled Outside the [place] in Last 30 Days - Family History Known Family History: Negative: Cardiac Disease, Hypertension, Diabetes Family History: Father with cataracts and macular degeneration - Social History Alcohol Use: None Alcohol Amount: 1 drink/wk Substance Use Type: Reports: None Hx Tobacco Use: No Smoking Status (MU): Former Smoker Amount Used/How Often: 1 PACK ADAY Have You Smoked in the Last Year: No Review of Systems Negative: Fever, Chills, Skin Diaphoresis Negative: Erythema Negative: Sore Throat Negative: Chest Pain Negative: Shortness Of Breath, Cough Positive: Abdominal Pain - LLQ, sharp and cramping pain, Diarrhea - one episode today, Other - POSITIVE: constipation; NEGATIVE: blood with stool. Negative: Vomiting, Nausea Negative: dysuria, hematuria Positive: Edema - BLE. Negative: Myalgia Negative: Rash Neurological: Other - NEGATIVE: dizziness All Other Systems Reviewed And Are Negative: Yes Physical Exam - Summary Physical Exam Summary: Constitutional: Well-developed, Well-nourished, Alert. (-) Distressed Skin: Warm, Dry HENT: Normocephalic; Atraumatic Eyes: Conjunctiva normal Neck: Musculoskeletal ROM normal neck. (-) JVD, (-) Stridor, (-) Tracheal deviation Cardio: Rhythm regular, rate normal, Heart sounds normal; Intact distal pulses; The pedal pulses are 2+ and symmetric. Radial pulses are 2+ and symmetric. (-) Murmur Pulmonary/Chest wall: Effort normal. (-) Respiratory distress, (-) Wheezes, (-) Rales Abd: Soft, (+) LLQ and suprapubic tenderness, (-) Distension, (+) Guarding, (+) Rebound Musculoskeletal: (-) Edema Lymph: (-) Cervical adenopathy Neuro: Alert, Oriented x3 Psych: Mood and affect Normal Triage Information Reviewed: Yes Vital Signs On Initial Exam: Initial Vitals Temp Pulse Resp BP Pulse Ox 97.9 F 94 18 138/77 96 11/15/18 15:56 11/15/18 15:56 11/15/18 15:56 11/15/18 15:56 11/15/18 15:56 Vital Signs Reviewed: Yes Diagnostics - Vital Signs Vital Signs Temp Pulse Resp BP Pulse Ox 11/15/18 15:56 97.9 F 94 18 138/77 96 - Laboratory Lab Results: Lab Results 11/15/18 Range/Units 17:29 WBC 5.5 (3.5-10.8) 10^3/uL RBC 4.00 (3.70-4.87) 10^6 /uL Hgb 11.4 L (12.0-16.0) g/dL Hct 34 L (35-47) % MCV 86 (80-97) fL MCH 29 (27-31) pg MCHC 33 (31-36) g/dL RDW 16 H (10-15) % Plt Count 232 (150-450) 10^3/uL MPV 9.0 (7.4-10.4) fL Neut % (Auto) 64.9 % Lymph % (Auto) 20.7 % Warrick % (Auto) 11.6 % Eos % (Auto) 2.0 % Baso % (Auto) 0.8 % Absolute Neuts (auto) 3.6 (1.5-7.7) 10^3/ul Absolute Lymphs (auto) 1.1 (1.0-4.8) 10^3/ul Absolute Monos (auto) 0.6 (0-0.8) 10^3/ul Absolute Eos (auto) 0.1 (0-0.6) 10^3/ul Absolute Basos (auto) 0.0 (0-0.2) 10^3/ul Absolute Nucleated RBC 0.0 10^3/ul Nucleated RBC % 0.0 Result Diagrams: 11/18/18 06:28 11/18/18 06:28 Lab Statement: Any lab studies that have been ordered have been reviewed, and results considered in the medical decision making process. Re-Evaluation - Re-Evaluation First Eval Re-Evaluation Time: 19:20 Comment: Patient is adament about seeing Dr. Epstein. Second Eval Re-Evaluation Time: 19:35 Comment: Patient agrees with admission in order to see Dr. Epstein. Abdominal Pain Fem Course/Dx - Course Course Of Treatment: Patient is a 68 y/o F accompanied by daughter with cc of LLQ pain that has not been relieved over the last three days despite visit to the ED with dx of colitis and rx for abx and Oxycodone. She reports constipation in the last week except for one episode of diarrhea today. Denies blood with stool, N/V, fever, diaphoresis. Hx of DM, CAD, HLD, HTN, GERD, pancreatitis, cholecystectomy. Requests consult with Dr. Epstein. Upon physical exam, the patient exhibits LLQ and suprapubic tenderness with rebound and guarding. In the ED course, the patient was administered Zofran, Morphine, Flagyl, Cipro, and fluids. Blood work reveals Hgb of 11.4, Hct of 34, RDW of 16 , chloride of 98, creatinine of 1.34, glucose of 175, ALT of 55, alkaline phosphatase of 119, CRP of 111.30, and albumin/globulin of 0.9. DOUG Salazar , will see the patient in the hospital tomorrow. DOUG Wagoner, will also consult for the patient tomorrow, per patient request. Dr. Hillman, hospitalist, accepts the patient for admission. Dx is colitis. Pending CT Abd/Pel results. - Diagnoses Provider Diagnoses: Colitis - Provider Notifications Discussed Care Of Patient With: Pipe Puckett - GI Time Discussed With Above Provider: 19:15 Instructed by Provider To: Other - Dr. Puckett will see the patient in the hospital tomorrow. DOUG Wagoner, will also consult for the patient tomorrow, per patient request. Dr. Hillman, hospitalist, accepts the patient for admission at 1930. Discharge ED - Sign-Out/Discharge Documenting (check all that apply): Patient Departure - Patient is accepted for admission by Dr. Hillman. Patient Received Moderate/Deep Sedation with Procedure: No - Discharge Plan Condition: Improved Disposition: ADMITTED TO [facility] - Billing Disposition and Condition Condition: IMPROVED Disposition: Admitted to [facility] - Attestation Statements Document Initiated by Sharminibe: Yes Documenting Scribe: Mini Rm Provider For Whom Grace is Documenting (Include Credential): Dr. Cuauhtemoc Campbell MD Scribe Attestation: IMini, scribed for Dr. Cuauhtemoc Campbell MD on 11/30/18 at 1423. Scribe Documentation Reviewed: Yes Provider Attestation: The documentation as recorded by the Mini jacinto accurately reflects the service I personally performed and the decisions made by me, Dr. Cuauhtemoc Campbell MD Status of Scribe Document: Viewed
[2018-11-15 17:59] LABS: Albumin 3.5 g/dL (3.2-5.2); Albumin/Globulin Ratio 0.9 (1-3); BUN/Creatinine Ratio 11.9 (8-20); C Reactive Protein 111.3 mg/L (<8.01); Calcium 9.8 mg/dL (8.6-10.3); EGFR African American 47.3 (>60); EGFR Non-African American 39.1 (>60); Globulin 3.7 g/dL (2-4); Potassium 4.4 mmol/L (3.5-5.0); Total Bilirubin 0.3 mg/dL (0.2-1.0); Total Protein 7.2 g/dL (6.4-8.9)
[2018-11-15] MEDS ORDERED: Ondansetron INJ* 2 MG/ML VIAL IV ONE (18:20)
[2018-11-15] MEDS ORDERED: Morphine 4 MG/ML VIAL (1 ml) 4 MG/ML VIAL IV ONE (18:20)
[2018-11-15] MEDS ORDERED: Iodixanol* (CONTRAST) 320 MG/ML 100 ML SDV IV ONE (18:24)
[2018-11-15] MEDS ORDERED: Ciprofloxacin 400MG IVPREMIX(* 400 MG/200 ML BAG IVPB ONE (18:47)
[2018-11-15] MEDS ORDERED: metroNIDAZOLE IV 500 MG/100ML* 500 MG/100 ML BAG IVPB ONE (18:48)
[2018-11-15] MEDS ORDERED: NS 0.9% 1000 ML** 1,000 ML IV ONE (19:30)
[2018-11-15] MEDS ORDERED: Morphine 4 MG/ML VIAL (1 ml) 4 MG/ML VIAL IV PRN (21:07)
[2018-11-15 21:46] LABS: Urine Appearance Clear; Urine Bacteria Absent (Absent); Urine Bilirubin Negative (Negative); Urine Blood Negative (Negative); Urine Color Yellow; Urine Glucose 1+(50 mg/dL) (Negative); Urine Ketones Negative (Negative); Urine Nitrite Negative (Negative); Urine Protein Negative (Negative); Urine Red Blood Cell Absent (Absent); Urine Specific Gravity 1.027 (1.010-1.030); Urine Squamous Epithelial Cell Present (Absent); Urine Urobilinogen Negative (Negative); Urine White Blood Cell Absent (Absent)
[2018-11-15] MEDS: NS 0.9% 1000 ML** 1,000 ML IV SCH (23:06)
[2018-11-15] MEDS: Enoxaparin(*) 40 MG/0.4 ML SYR SUBCUT SCH (23:06)
--- NOTE | 2018-11-16 00:41 | HP ---
CC: Dr. Ramona Mcpherson * HISTORY AND PHYSICAL: DATE OF ADMISSION: 11/15/18 CHIEF COMPLAINT: Left lower quadrant abdominal pain. HISTORY OF PRESENT ILLNESS: This is a 68-year-old female with past medical history of type 2 diabetes, dyslipidemia, hypertension, ASD, and leaky mitral valve, here due to left lower quadrant abdominal pain. The patient stated that this is her third ER visit over the last 5 days. She went to an outside ER first and was given some pain medicines and stool softeners. Later, she was seen in [facility] Emergency Room 3 days ago and was given Flagyl and Augmentin, but this did not take care of her pain, so she finally decided to come to the ER for further evaluation. She was scheduled to see Dr. Epstein and wanted to see Dr. Epstein today; however, he is not director communications, so the patient agreed to admission and to see him in the morning. The patient other than the severe pain in the left lower quadrant; which is 8 to 9/10 in intensity; which is continuous, sharp, and cramping in nature accompanied by constipation initially for the last 1 week, but today she did seem to have hard stool followed by a diarrhea-like stool. She also had some dysuria initially, but that has resolved. She, otherwise, denies any nausea or vomiting, any chest pain, shortness of breath, any fever or chills, any rash. She did notice that her legs have been swollen. Regarding her legs, she did have a fall on and was noted to have a right fibular fracture, for which she has a straight leg boot on that lower extremity. PAST MEDICAL HISTORY: As mentioned, history of type 2 diabetes, dyslipidemia, hypertension, and ASD which was repaired during her childhood, but she still has persistent mitral valve disorder and pulmonary hypertension. She has arthritis and trochanteric bursitis, for which she has had surgeries before and she has also had recurrent pancreatitis, total of 5 episodes, for which she required pancreatic duct stent placement, which was later removed. She may have some gastroesophageal reflux disease and anxiety and depression and most recent fracture on the right fibula, which is being treated conservatively. PAST SURGICAL HISTORY: She has had bilateral left and right trochanteric bursectomy with abductor tendon repair, mastoidectomy on the left side, open heart surgery with atrial septal defect, pancreatic duct placement and then later removal, cholecystectomy, appendectomy, right breast cyst, fallopian tube removal, thyroid nodule removal twice, tonsils and adenoidectomy. HOME MEDICATIONS: The patient is currently on Ultram 50 mg q.6 hours p.r.n. for pain, vitamin D3 at 50 mcg oral daily, aspirin 81 mg oral daily, potassium 1.1 g oral daily, Colace 100 mg oral twice a daily, metronidazole 500 mg every 8 hours, Augmentin 875 mg p.o. b.i.d., glipizide 5 mg oral t.i.d., Protonix 40 mg every morning, Actos 45 mg every morning, lisinopril 30 mg at bedtime, venlafaxine 75 mg every morning, famciclovir 250 mg p.o. t.i.d. p.r.n., pravastatin 20 mg daily at bedtime, and metformin 250 mg twice a day. ALLERGIES: The patient is documented to have allergies to SULFA ANTIBIOTICS and LATEX. FAMILY HISTORY: Noncontributory at her age. SOCIAL HISTORY: The patient lives with her . She does not smoke. She used to use alcohol minimally, but had quit many months ago. She denies any other drug abuse. REVIEW OF SYSTEMS: A 14-point review of systems did not reveal any new information, other than what is stated in the HPI. PHYSICAL EXAMINATION GENERAL: The patient is awake, alert, and oriented x3, did not appear to be in any acute respiratory distress. VITAL SIGNS: In the ER, BP was noted to be 156/73, heart rate 98, respiration rate 18, saturating 98% on room air, temperature was documented at 97.9. HEAD AND NECK: Atraumatic, normocephalic. Pupils bilaterally reactive to light and accommodation. Oral mucosa is moist. Neck is supple. No jugular venous distention. LUNGS: Clear to auscultation bilaterally. HEART: S1 and S2. Systolic murmur heard. ABDOMEN: Severe left lower quadrant abdominal tenderness without any rebound tenderness. EXTREMITIES: The patient had some trace pitting edema. There was a straight leg splint on that right leg. NEUROLOGIC: Sensation is intact in all 4 extremities and the patient was alert , awake, and oriented to time; place; and person. DIAGNOSTIC STUDIES/LAB DATA: CBC was remarkable for some mild anemia with hemoglobin 11.4, hematocrit 34. Chemistry showed elevated creatinine of 1.34, but otherwise unremarkable. C-reactive protein was elevated at 111. ALT and alkaline phosphatase were minimally elevated. Lactic acid was within normal limits. CT of the abdomen and pelvis was read as infectious colitis in the descending colon, stable left adrenal adenoma. No followup images indicated as per ACR guideline. IMPRESSION: This is a 68-year-old female with multiple cardiac problems here due to abdominal pain, likely secondary to infectious colitis, which failed outpatient antibiotic therapy. ASSESSMENT AND PLAN: 1. Infectious colitis. The patient requests Dr. Epstein to see her, who is not currently on-call, so I will sign out to the day hospitalist to consult her. In the meantime, we will start the patient on Cipro and Flagyl IV and analgesics and antiemetics as needed. 2. History of hypertension. I will restart home medications with holding parameters. 3. History of type 2 diabetes. We will just do fingerstick monitoring and mild needle timed insulin sliding scale. 4. History of dyslipidemia. Restart statin. 5. History of depression and anxiety. Restart home medications. 6. DVT prophylaxis with Lovenox. [id number]/[facility] #: [id number] [facility] ISLANDFiliberto
[2018-11-16] MEDS: traMADol TAB* 50 MG PO PRN ×2 (01:22→23:14)
[2018-11-16] MEDS ORDERED: HYDROmorphone INJ1* 1 MG/ML SYRINGE IV ONE (03:00)
[2018-11-16] MEDS ORDERED: HYDROmorphone INJ1* 1 MG/ML SYRINGE ONE (03:51)
[2018-11-16] MEDS: metroNIDAZOLE IV 500 MG/100ML* 500 MG/100 ML BAG IVPB SCH ×3 (03:57→19:27)
[2018-11-16 06:02] LABS: ABS Eosinophils 0.1 10^3/ul (0-0.6); ABS Lymphocytes 1.1 10^3/ul (1.0-4.8); ABS Monocytes 0.9 10^3/ul (0-0.8); ABS Neutrophils 3.7 10^3/ul (1.5-7.7); Eosinophil % 2.4 %; Hematocrit 31 % (35-47); Hemoglobin 10.1 g/dL (12.0-16.0); Lymphocyte % 19.1 %; Mean Corpuscular HGB Conc 32 g/dL (31-36); Mean Corpuscular Hemoglobin 28 pg (27-31); Mean Corpuscular Volume 86 fL (80-97); Mean Platelet Volume 9.2 fL (7.4-10.4); Platelet Count 222 10^3/uL (150-450); Red Blood Count 3.64 10^6 /uL (3.70-4.87); Red Cell Distribution Width 16 % (10-15); White Blood Count 5.8 10^3/uL (3.5-10.8)
[2018-11-16 06:15] LABS: BUN/Creatinine Ratio 11.3 (8-20); EGFR African American 51.7 (>60); EGFR Non-African American 42.8 (>60); Potassium 3.8 mmol/L (3.5-5.0)
--- NOTE | 2018-11-16 08:41 | PN ---
Subjective Date of Service: 11/16/18 Interval History: Admitted last night because of colitis, failed outpatient therapy. Having persistent LLQ pain. No fever, no chills, no vomiting. Objective Active Medications: Aspirin (Aspirin Ec Tab*) 81 mg PO DAILY [facility] Atorvastatin Calcium (Lipitor*) 5 mg PO BEDTIME [facility]; Protocol Cholecalciferol (Vitamin D Tab*) 2,000 units PO DAILY [facility] Docusate Sodium (Colace Cap*) 100 mg PO BID [facility] Enoxaparin Sodium (Lovenox(*)) 40 mg SUBCUT Q24H [facility] Last Admin: 11/15/18 23:06 Dose: 40 mg Hydromorphone HCl (Dilaudid Inj*) 0.5 mg IV SLOW PU Q6H PRN PRN Reason: PAIN - MODERATE Sodium Chloride (Ns 0.9% 1000 Ml) 1,000 mls @ 75 mls/hr IV PER RATE [facility] Last Admin: 11/15/18 23:06 Dose: 75 mls/hr Ciprofloxacin/Dextrose (Cipro 400 Mg Ivpremix(*)) 400 mg in 200 mls @ 200 mls/ hr IVPB Q12H [facility]; Protocol Metronidazole/Sodium Chloride (Flagyl 500 Mg Ivpb*) 500 mg in 100 mls @ 100 mls /hr IVPB Q8H [facility] Last Admin: 11/16/18 03:57 Dose: 100 mls/hr Insulin Human Lispro (Humalog*) 0 units SUBCUT ACHS [facility]; Protocol Lisinopril (Prinivil Tab*) 30 mg PO BEDTIME [facility] Potassium Home (Supplement) 0 mg PO DAILY [facility] Pantoprazole Sodium (Protonix Tab*) 40 mg PO QAM [facility] Tramadol HCl (Ultram*) 50 mg PO Q6HR PRN PRN Reason: PAIN - MODERATE Last Admin: 11/16/18 01:22 Dose: 50 mg Venlafaxine HCl (Effexor Xr Cap*) 75 mg PO QAM [facility] Vital Signs - 8 hr 11/16/18 11/16/18 11/16/18 01:22 03:56 03:58 Respiratory 16 18 18 Rate 11/16/18 05:31 Respiratory 18 Rate Oxygen Devices in Use Now: None Appearance: obese elderly female lying in bed, not in distress Eyes: PERRLA Ears/Nose/Mouth/Throat: Mucous Membranes Moist Respiratory: Symmetrical Chest Expansion and Respiratory Effort, Clear to Auscultation Cardiovascular: NL Sounds; No Murmurs; No JVD, RRR Abdominal: - - LLQ tenderness, bowel sounds normoactive, soft, no rigidity or guarding. Extremities: No Edema Neurological: Alert and Oriented x 3 Result Diagrams: 11/16/18 05:33 11/16/18 05:35 Additional Lab and Data: Lab Results 11/15/18 Range/Units 17:29 WBC 5.5 (3.5-10.8) 10^3/uL RBC 4.00 (3.70-4.87) 10^6 /uL Hgb 11.4 L (12.0-16.0) g/dL Hct 34 L (35-47) % MCV 86 (80-97) fL MCH 29 (27-31) pg MCHC 33 (31-36) g/dL RDW 16 H (10-15) % Plt Count 232 (150-450) 10^3/uL MPV 9.0 (7.4-10.4) fL Neut % (Auto) 64.9 % Lymph % (Auto) 20.7 % [place] % (Auto) 11.6 % Eos % (Auto) 2.0 % Baso % (Auto) 0.8 % Absolute Neuts (auto) 3.6 (1.5-7.7) 10^3/ul Absolute Lymphs (auto) 1.1 (1.0-4.8) 10^3/ul Absolute Monos (auto) 0.6 (0-0.8) 10^3/ul Absolute Eos (auto) 0.1 (0-0.6) 10^3/ul Absolute Basos (auto) 0.0 (0-0.2) 10^3/ul Absolute Nucleated RBC 0.0 10^3/ul Nucleated RBC % 0.0 Assess/Plan/Problems-Billing Assessment: 68 year old Female with hx of HTN, here with colitis, failed outpatient therapy. - Patient Problems (1) Colitis Current Visit: Yes Status: Acute Code(s): K52.9 - NONINFECTIVE GASTROENTERITIS AND COLITIS, UNSPECIFIED SNOMED Code(s): 80694700 Comment: Continue cipro, flagyl Pain control will change diet to clear liquid diet. (2) Adrenal nodule Current Visit: Yes Status: Acute Code(s): E27.9 - DISORDER OF ADRENAL GLAND , UNSPECIFIED SNOMED Code(s): 012980981 Comment: stable left adrenaloma. No follow up imaging indicated per ACR guidelines (3) Diabetes mellitus type 2 Current Visit: No Status: Active Priority: Medium Code(s): E11.9 - TYPE 2 DIABETES MELLITUS WITHOUT COMPLICATIONS SNOMED Code(s): 48748640 Comment: Hold home dose metformin sliding scale insulin (4) HYPERTENSION Current Visit: No Status: Active Priority: Medium Comment: continue home lisinopril (5) CKD (chronic kidney disease), stage III Current Visit: Yes Status: Acute Code(s): N18.3 - CHRONIC KIDNEY DISEASE, STAGE 3 (MODERATE) SNOMED Code(s): 609812579 Comment: stable. (6) DVT prophylaxis Current Visit: Yes Status: Acute Code(s): Z29.9 - ENCOUNTER FOR PROPHYLACTIC MEASURES, UNSPECIFIED SNOMED Code(s): 909656079 Comment: Leroy Ram
[2018-11-16] MEDS ORDERED: [UNRECOGNIZED DRUG - OTHER] PO SCH (09:00)
[2018-11-16] MEDS: Insulin LISPRO* 1 UNITS UNIT SUBCUT SCH ×4 (09:02→23:11)
[2018-11-16] MEDS: Docusate CAP* 100 MG PO SCH ×2 (09:25→21:05)
[2018-11-16] MEDS: Aspirin EC TAB* 81 MG TAB.EC PO SCH (09:25)
[2018-11-16] MEDS: Pantoprazole TAB * 40 MG TAB PO SCH (09:25)
[2018-11-16] MEDS: Venlafaxine EXT RELEASE CAP* 75 MG PO SCH (09:25)
[2018-11-16] MEDS: Ciprofloxacin 400MG IVPREMIX(* 400 MG/200 ML BAG IVPB SCH ×2 (09:25→21:05)
[2018-11-16] MEDS: HYDROmorphone INJ1* 1 MG/ML SYRINGE IV SLOW PU PRN ×2 (09:37→19:26)
[2018-11-16] MEDS: Cholecalciferol TAB* 1000 UNITS PO SCH (10:31)
[2018-11-16] MEDS ORDERED: Midazolam* 1 MG/ML 10 ML VIAL (10 MG) ONE (13:39)
[2018-11-16] MEDS ORDERED: fentaNYL* 50 MCG/ML 2 ML VIAL (100 MCG VIAL) ONE (13:39)
--- NOTE | 2018-11-16 17:40 | PRO ---
DATE: 11/16/18 - ROOM #[id number] REFERRING PHYSICIAN: Ramona Mcpherson.* PROCEDURE: Flexible sigmoidoscopy to upper sigmoid colon and biopsy of upper sigmoid colon and lower sigmoid colon from ulcerated and normal-appearing areas respectively. INDICATION: This is a 68-year-old woman who has had abdominal pain for 4 to 5 days and has been seen at the [facility] on 11/10, then here in [place] 11/12/18 and 11/15/18. She has had left lower quadrant pain without any abrupt diarrheal or vomiting illness and without any fever. CT scan shows localized inflammation of the sigmoid with the rectum and splenic flexure clearly having a normal colonic wall. Informed consent was obtained. ENDOSCOPIST: Dr. Epstein MEDICATIONS: Midazolam 7.5, fentanyl 50. FINDINGS: She is a healthy-appearing older woman, moderately overweight, in no acute distress. Bowel sounds are present, but diminished. There is left lower quadrant tenderness to light palpation and it is apparently severe. Perianal inspection is normal and rectal unremarkable. Initial views show normal rectal mucosa and brown thick liquid stool that is quite mucoid. An aspirate was sent for O and P, both antigenic and traditional. The mucosa appears normal in the rectum, rectosigmoid, and up to about 40 cm where there has been some edema and dense focal smooth superficial ulcerations. There does not appear to be gross swelling of the wall. The ulcerations are covered with a light exudate and become more continuous as one ascends for about 10 cm in this involved segment. No extra pressure was applied. A brushing was obtained for culture from this area. There were also biopsies x4. Biopsies were obtained to include a black thread-like artifact in the distal sigmoid. IMPRESSION: Segmental sigmoid colonic ulcerations - an atypical appearance. The patient had a subacute progression without any thunderclap onset of abdominal cramps. There was never any rectal bleeding. Thus, the history is atypical for ischemic colitis although that has to lead the list. Conservative management for the moment is indicated. Possibility of surgery being needed will be discussed with the patient as her course has now extended into the sixth or seventh day. Addendum: acute colitis - no mention of viral effect [id number]/[facility] #: [id number] [facility]
[2018-11-16] MEDS: NS 0.9% 1000 ML** 1,000 ML IV SCH (18:30)
--- NOTE | 2018-11-16 19:36 | CONS ---
GASTROENTEROLOGY CONSULT: DATE OF CONSULT: 11/16/18 CONSULTING PHYSICIANS: Raomna Mcpherson, Cammie Hillman. REASON FOR CONSULT: A week-long illness beginning with malaise and now with 5 days of left lower quadrant pain with swelling of the sigmoid colon on CT scan. HISTORY: This 68-year-old woman with history of vis-hryhhrs-kebpysrxn diabetes ; chronic pain; GERD, on PPI; status post cholecystectomy; appendectomy; pancreatic minor papilla sphincterotomy in [place] in 2004 and being followed for an adrenal mass, developed lower abdominal pain while on vacation. She was [place] in the [facility] and said there was some constipation during the trip. She began feeling malaise late in the day 11/09/18. Pain developed in the mid to lower abdomen in the evening, but she [place] get [place] the [place] in the dark and was in much greater distress the morning of 11/10/18. She went to the [facility] where CT scan was done. She was given morphine several times along with intravenous fluid and felt better and was sent home on Flagyl. She said she was not too bad on , 11/11/18, did have one sandwich. She began feeling worse again on 11/12/18 and came to the emergency room here. CT scan showed thickened sigmoid colon. She was afebrile and her white count was normal. Her antibiotics were widened to Augmentin and Flagyl. She continued to have abdominal pain over the next few days and came to the emergency room yesterday evening after she reported to my office with a pain level of 10/10 and clearly it seemed to require hospital evaluation. At no point has she had vomiting, diarrhea, rectal bleeding, or fever. No one else has been ill. She denies eating any suspect foods in the few days before this. She has never had anything like this before. She did have a colonoscopy in June 2017 just showing a redundant bowel and normal biopsies which were taken to work up sporadic diarrhea. No diverticula were seen. Colonoscopy in 2008 had also been unremarkable. She has no history of cerebrovascular or coronary disease. PAST MEDICAL HISTORY: 1. Pancreatic ductal abnormality - recurring pancreatitis (with fatty meals) resulted in a minor papilla sphincterotomy at [facility] in around 2004 2. Status post cholecystectomy. 3. Status post appendectomy. 4. Removal of fallopian tube. 5. Atrial septal defect repair, age 43, after murmur heard by her primary physician. 6. Thyroid nodule resections. 7. Tonsillectomy. 8. Trochanteric bursa removal on the right and left. 9. Anxiety. ALLERGIES: LATEX and SULFA ANTIBIOTICS. SOCIAL HISTORY: She is and likes to travel. REVIEW OF SYSTEMS: No history of CVA, TIA, seizure, GA, palpitations, syncope, hepatitis, jaundice, hemoptysis, TB. She did have a fall and broke a bone in her right foot a month ago. PHYSICAL EXAM: She is a moderately overweight, older woman, in no distress at this time having received Dilaudid 45 minutes ago. HEENT exam is unremarkable. She has no adenopathy. Her skin is normal without obvious rash or livedo reticularis. Lungs are clear. Heart sounds are regular. The abdomen has reduced bowel sounds. It is symmetric. There is left lower quadrant tenderness. Perianal inspection is normal and rectal reveals brownish mucoid stool, submitted for Hemoccult. Extremities show no edema and there is a walking cast on the right leg. DIAGNOSTIC STUDIES/LAB DATA: ALT slightly up at 93 three days ago, albumin 3.9 , hemoglobin 10.6, white count 8.2, C-reactive protein 114, lipase 19, and no stool specimens yet submitted. CT review - coronal images display thickening of the colonic wall from the mid to upper sigmoid, especially image 39 of 102. The splenic flexure and transverse are clearly normal. The small bowel appears normal. No diverticula are seen. IMPRESSION: This 68-year-old woman has had left lower quadrant pain for 6 to 7 days. It came on within a few hours of developing malaise without any fever or rash. There was never any classic gastroenteritis symptom such as vomiting or profuse diarrhea. The cause is not clear. This colonic area is prone to ischemic colitis, though she has not had any known vascular disease and the classic middle of the night history and rectal bleeding are not present. Leukocytosis or fever is not present. Diverticula have not been seen before in the involved segment and the CAT scan would be atypical for that. A common viral illness or gastroenteritis does not quite fit the history. Sigmoidoscopy will be planned. By process of elimination, the segmental nature of this would suggest a vascular event, but again the etiology is unclear. [id number]/[facility] #: [id number] JILL
[2018-11-16] MEDS: Lisinopril TAB* 10 MG PO SCH (21:03)
[2018-11-16] MEDS: Atorvastatin* 10 MG TAB PO SCH (21:04)
[2018-11-16] MEDS: Enoxaparin(*) 40 MG/0.4 ML SYR SUBCUT SCH (21:56)
[2018-11-17] MEDS: HYDROmorphone INJ1* 1 MG/ML SYRINGE IV SLOW PU PRN ×3 (01:21→19:46)
[2018-11-17] MEDS: metroNIDAZOLE IV 500 MG/100ML* 500 MG/100 ML BAG IVPB SCH ×3 (04:10→21:05)
[2018-11-17 07:02] LABS: ABS Eosinophils 0.2 10^3/ul (0-0.6); ABS Lymphocytes 1.1 10^3/ul (1.0-4.8); ABS Monocytes 0.6 10^3/ul (0-0.8); ABS Neutrophils 2.5 10^3/ul (1.5-7.7); Eosinophil % 4.1 %; Hematocrit 30 % (35-47); Hemoglobin 9.9 g/dL (12.0-16.0); Lymphocyte % 24.9 %; Mean Corpuscular HGB Conc 33 g/dL (31-36); Mean Corpuscular Hemoglobin 28 pg (27-31); Mean Corpuscular Volume 86 fL (80-97); Nucleated Red Blood Cells % 0.1; Platelet Count 201 10^3/uL (150-450); Red Blood Count 3.51 10^6 /uL (3.70-4.87); Red Cell Distribution Width 15 % (10-15); White Blood Count 4.4 10^3/uL (3.5-10.8)
[2018-11-17 07:16] LABS: Calcium 8.6 mg/dL (8.6-10.3); Potassium 3.6 mmol/L (3.5-5.0)
[2018-11-17 07:22] LABS: BUN/Creatinine Ratio 7.3 (8-20); EGFR African American 59.4 (>60); EGFR Non-African American 49.1 (>60)
[2018-11-17] MEDS: Insulin LISPRO* 1 UNITS UNIT SUBCUT SCH ×4 (07:44→22:06)
[2018-11-17] MEDS: Aspirin EC TAB* 81 MG TAB.EC PO SCH (08:27)
[2018-11-17] MEDS: Venlafaxine EXT RELEASE CAP* 75 MG PO SCH (08:27)
[2018-11-17] MEDS: Cholecalciferol TAB* 1000 UNITS PO SCH (08:28)
[2018-11-17] MEDS: Pantoprazole TAB * 40 MG TAB PO SCH (08:28)
[2018-11-17] MEDS: Docusate CAP* 100 MG PO SCH ×2 (08:28→22:12)
[2018-11-17] MEDS: Ciprofloxacin 400MG IVPREMIX(* 400 MG/200 ML BAG IVPB SCH ×2 (09:50→22:10)
[2018-11-17] MEDS: POTASSIUM GLUCONATE 550 MG PO SCH (09:55)
--- NOTE | 2018-11-17 10:08 | PN ---
Subjective Date of Service: 11/17/18 Interval History: Status post flex sigmoidoscopy yesterday This morning continues to pain at the Left lower quadrant pain, no nausea, no vomiting. Tolerating sips of liquid Objective Active Medications: Aspirin (Aspirin Ec Tab*) 81 mg PO DAILY [facility] Last Admin: 11/17/18 08:27 Dose: 81 mg Atorvastatin Calcium (Lipitor*) 5 mg PO BEDTIME [facility]; Protocol Last Admin: 11/16/18 21:04 Dose: 5 mg Cholecalciferol (Vitamin D Tab*) 2,000 units PO DAILY [facility] Last Admin: 11/17/18 08:28 Dose: 2,000 units Docusate Sodium (Colace Cap*) 100 mg PO BID [facility] Last Admin: 11/17/18 08:28 Dose: Not Given Enoxaparin Sodium (Lovenox(*)) 40 mg SUBCUT Q24H [facility] Last Admin: 11/16/18 21:56 Dose: 40 mg Hydromorphone HCl (Dilaudid Inj1s*) 0.5 mg IV SLOW PU Q6H PRN PRN Reason: PAIN - MODERATE Last Admin: 11/17/18 09:50 Dose: 0.5 mg Sodium Chloride (Ns 0.9% 1000 Ml) 1,000 mls @ 75 mls/hr IV PER RATE [facility] Last Admin: 11/16/18 18:30 Dose: 75 mls/hr Ciprofloxacin/Dextrose (Cipro 400 Mg Ivpremix(*)) 400 mg in 200 mls @ 200 mls/ hr IVPB Q12H [facility]; Protocol Last Admin: 11/17/18 09:50 Dose: 200 mls/hr Metronidazole/Sodium Chloride (Flagyl 500 Mg Ivpb*) 500 mg in 100 mls @ 100 mls /hr IVPB Q8H [facility] Last Admin: 11/17/18 04:10 Dose: 100 mls/hr Insulin Human Lispro (Humalog*) 0 units SUBCUT ACHS [facility]; Protocol Last Admin: 11/17/18 07:44 Dose: Not Given Lisinopril (Prinivil Tab*) 30 mg PO BEDTIME [facility] Last Admin: 11/16/18 21:03 Dose: 30 mg Potassium Gluconate (550 Mg Tablets) 550 mg PO DAILY [facility] Last Admin: 11/17/18 09:55 Dose: Not Given Pantoprazole Sodium (Protonix Tab*) [facility] Last Admin: 11/17/18 08:28 Dose: 40 mg Tramadol HCl (Ultram*) 50 mg PO Q6HR PRN PRN Reason: PAIN - MODERATE Last Admin: 11/16/18 23:14 Dose: 50 mg Venlafaxine HCl (Effexor Xr Cap*) 75 mg PO QAM [facility] Last Admin: 11/17/18 08:27 Dose: 75 mg Vital Signs - 8 hr 11/17/18 11/17/18 11/17/18 02:09 03:52 04:09 Temperature 98.2 F Pulse Rate 90 Respiratory 16 16 18 Rate Blood Pressure 147/59 (mmHg) O2 Sat by Pulse 100 Oximetry 11/17/18 11/17/18 11/17/18 07:00 07:50 09:50 Temperature 98.2 F Pulse Rate 83 Respiratory 16 16 16 Rate Blood Pressure 169/74 (mmHg) O2 Sat by Pulse 97 Oximetry Oxygen Devices in Use Now: None Appearance: Obese female lying in bed, not in distress Respiratory: Symmetrical Chest Expansion and Respiratory Effort, Clear to Auscultation Cardiovascular: NL Sounds; No Murmurs; No JVD, RRR Abdominal: - - LLQ tenderness, abdomen soft, no rigidity or guarding, normoactive bowel sounds Extremities: No Edema Neurological: Alert and Oriented x 3 Result Diagrams: 11/17/18 06:37 11/17/18 06:37 Additional Lab and Data: Lab Results 11/15/18 Range/Units 17:29 WBC 5.5 (3.5-10.8) 10^3/uL RBC 4.00 (3.70-4.87) 10^6 /uL Hgb 11.4 L (12.0-16.0) g/dL Hct 34 L (35-47) % MCV 86 (80-97) fL MCH 29 (27-31) pg MCHC 33 (31-36) g/dL RDW 16 H (10-15) % Plt Count 232 (150-450) 10^3/uL MPV 9.0 (7.4-10.4) fL Neut % (Auto) 64.9 % Lymph % (Auto) 20.7 % [place] % (Auto) 11.6 % Eos % (Auto) 2.0 % Baso % (Auto) 0.8 % Absolute Neuts (auto) 3.6 (1.5-7.7) 10^3/ul Absolute Lymphs (auto) 1.1 (1.0-4.8) 10^3/ul Absolute Monos (auto) 0.6 (0-0.8) 10^3/ul Absolute Eos (auto) 0.1 (0-0.6) 10^3/ul Absolute Basos (auto) 0.0 (0-0.2) 10^3/ul Absolute Nucleated RBC 0.0 10^3/ul Nucleated RBC % 0.0 Microbiology and Other Data: Microbiology 11/15/18 21:20 Urine Culture - Final Urine No Growth (<1,000 CFU/mL) 11/16/18 14:35 Stool Gross Appearance - Final Stool Assess/Plan/Problems-Billing Assessment: 68 year old Female with hx of HTN, here with colitis, failed outpatient therapy. - Patient Problems (1) Colitis Current Visit: Yes Status: Acute Code(s): K52.9 - NONINFECTIVE GASTROENTERITIS AND COLITIS, UNSPECIFIED SNOMED Code(s): 48929794 Comment: Continue cipro, flagyl Pain control GI input appreciated status post flex sigmpoidoscpy, found ulceration at the sigmoid region, presisent pain, get surgery consult. (2) Adrenal nodule Current Visit: Yes Status: Acute Code(s): E27.9 - DISORDER OF ADRENAL GLAND , UNSPECIFIED SNOMED Code(s): 937659143 Comment: stable left adrenaloma. No follow up imaging indicated per ACR guidelines (3) Diabetes mellitus type 2 Current Visit: No Status: Active Priority: Medium Code(s): E11.9 - TYPE 2 DIABETES MELLITUS WITHOUT COMPLICATIONS SNOMED Code(s): 44774905 Comment: Hold home dose metformin sliding scale insulin (4) HYPERTENSION Current Visit: No Status: Active Priority: Medium Comment: continue home lisinopril (5) CKD (chronic kidney disease), stage III Current Visit: Yes Status: Acute Code(s): N18.3 - CHRONIC KIDNEY DISEASE, STAGE 3 (MODERATE) SNOMED Code(s): 305370136 Comment: stable. (6) DVT prophylaxis Current Visit: Yes Status: Acute Code(s): Z29.9 - ENCOUNTER FOR PROPHYLACTIC MEASURES, UNSPECIFIED SNOMED Code(s): 542838849 Comment: Lovenox subQ
[2018-11-17] MEDS: NS 0.9% 1000 ML** 1,000 ML IV SCH (12:16)
--- NOTE | 2018-11-17 15:13 | PN ---
Progress Note - Progress Note Date of Service: 11/17/18 Note: Brief Surgery Note ( full consult dictated) Hx, consult, procedure note from Dr. Epstein, labs, CT reviewed w/ Dr. Estevez. Patient appears to be improving, albeit slowly. No indications for surgical intervention at present. Will d/w Dr. Estevez. Will consider adv diet and change to po analgesics, with anticipated d/c home in 1-2 d. Will follow.
--- NOTE | 2018-11-17 21:11 | CONS ---
CC: Dr. Piotr Epstein; Dr. Ramona Mcpherson * SURGICAL CONSULT NOTE: DATE OF CONSULT: 11/17/18 ATTENDING PHYSICIAN: Dr. Gamal Estevez. CHIEF COMPLAINT: Abdominal pain. HISTORY OF PRESENT ILLNESS: This is a 68-year-old female who began to experience onset of mid abdominal pain 8 days ago while vacationing in [facility]. She describes a steady pain across the mid abdomen preceded by some generalized malaise and then pain moving to the left lower quadrant. She was seen in the hospital up there and diagnosed as having colitis and initiated on oral antibiotics. She felt better for a day, but then this past Thursday began to experience severe pain again. She normally takes tramadol at home, but this was not controlling her pain adequately. She presented to the ED here and was prescribed Flagyl and Augmentin. She was scheduled to be seen by Dr. Epstein, but contacted their office on Thursday stating that she was having 10/10 pain and she was referred to the ED. She states that for the first few days of the present illness, she had no bowel movement at all and previously had been experiencing intermittent constipation for which she was using Metamucil. Since her admission on Thursday, she has experienced multiple loose stools, but not diarrhea. She denies any blood per rectum. She denies fever, chills, nausea, or vomiting. She has not had any prior similar symptoms. She was seen by Dr. Epstein (see separate consult). She underwent sigmoidoscopy with him on 11/16/18, which showed essentially normal mucosa up to about 40 cm where there were then noted to be areas of superficial ulceration from which biopsies and cultures were taken. This extended over an area of about 10 cm and then mucosa was apparently normal above that point again. Her last full colonoscopy was June of 2017 and was otherwise normal. Currently, she is receiving tramadol p.o. p.r.n. and Dilaudid 0.5 mg every 8 hours, which seems to be sufficient. PAST MEDICAL HISTORY: Significant for type 2 diabetes, hyperlipidemia, hypertension, mild renal insufficiency, mitral valve disease (not specified; she followed regularly by Dr. Thornton), pulmonary hypertension, arthritis, history of recurrent pancreatitis (status post stenting and subsequent removal with no recurrence in the last 15 to 20 years). She is treated for GERD and anxiety and depression. PAST SURGICAL HISTORY: Include: 1. ASD repair at around age 43. 2. Right and left trochanteric bursectomies. 3. Laparoscopic cholecystectomy. 4. Appendectomy with incidental right salpingectomy. 5. Excision of a benign right breast cyst. 6. Left mastoidectomy. 7. Thyroid nodule excision x2. 8. Tonsillectomy remotely. No reported surgical or anesthesia complications. MEDICATIONS: Current home medications include: 1. Tramadol; the patient uses infrequently. 2. Baby aspirin once daily. 3. Potassium supplement. 4. Colace. 5. Flagyl and Augmentin. 6. Glipizide. 7. Actos. 8. Metformin. 9. Protonix. 10. Lisinopril. 11. Pravastatin. 12. Venlafaxine. 13. Vitamin D. 14. Famciclovir p.r.n. for recurrent oral herpes. Her current medications include IV Cipro and Flagyl as well as pain medication as noted above. ALLERGIES: SULFA (nausea), LATEX (rash). FAMILY HISTORY: See chart record. SOCIAL HISTORY: See chart record. She states that she was a 1 pack per day smoker who quit 25 to 30 years ago. REVIEW OF SYSTEMS: General: As above per HPI. No significant weight loss. HEENT: No problems reported. Cardiovascular: She is followed by Dr. Thornton. She does not recall specifically when her last echocardiogram was done. She is treated for hypertension. She has no known peripheral vascular disease. Respiratory: No shortness of breath or chronic cough. GI: As above per HPI. No additions. : No problems reported. Endocrine: Type 2 diabetes. Musculoskeletal: She had a fall when stepping from her boat onto a wet dock and sustained a right fibular fracture on 10/16/18 for which she is in an external splint. PHYSICAL EXAM: Vital Signs: Height 5 feet 5 inches, weight 219 pounds, BMI 36 , temperature 98, and blood pressure 170/65, pulse 82, respirations 16, room air saturation 96%. General: A well-nourished, obese female in no acute distress. She appears comfortable. Skin: Warm and dry. No suspicious rashes or lesions noted. HEENT: Oropharynx, mucous membranes slightly dry. Heart: Regular rate and rhythm. No murmur appreciated. Lungs: Clear to auscultation. No rales or wheezes. Breasts: Not examined. Abdomen: Multiple well-healed surgical incisions. Bowel sounds are present. No significant distention or tympani. Soft with fairly well localized tenderness in the left lower quadrant without rebound, guarding, or referred tenderness. No palpable masses or organomegaly. No palpable hernias. Genitalia and Rectal : Not done. Back: No spinous process or CVA tenderness. Extremities: Trace to 1+ edema on the left, palpable dorsalis pedis pulse on the left. Right lower extremity is in external support. DIAGNOSTIC STUDIES/LAB DATA: Of note, white blood cell count 4400, no significant change since admission. Hemoglobin 9.9; hematocrit 30, down slightly from admission, though likely in part related to rehydration. Platelets and red cell indices are normal. Chemistries had been essentially normal with the exception of elevated creatinine on admission of 1.34, and today at 1.10 which is consistent with her baseline. Her fingersticks have ranged from 89 to 209. Admission ALT was 55. Alkaline phosphatase 119. Other liver function tests and lipase were normal. CRP was elevated at 111, which was not significantly changed from 11/12/18. CT scan of the abdomen and pelvis was reviewed personally with Dr. Estevez. There is an area indicated showing some thickening of the wall of the sigmoid colon, but no pericolonic inflammatory changes, free fluid, evidence of free air or abscess. No clearly defined diverticular disease. IMPRESSION: Segmental colitis, possibly ischemic (cultures and biopsies pending ). The patient appears to be improving, albeit slowly at this point. PLAN: She does not appear to require any surgical intervention for the present time or foreseeable near future. Her case was discussed with Dr. Estevez. He is recommending ongoing conservative treatment with relative bowel rest, though her diet could be liberalized to clear liquids ad jarred or full liquids and transitioned to oral pain medications with anticipated discharge in 1 or 2 days. We will follow with you while she is still in the hospital. MEMO MEJIAS [id number]/[facility] #: [id number] [facility]PITAL CENTERFiliberto
[2018-11-17] MEDS: Atorvastatin* 10 MG TAB PO SCH (22:04)
[2018-11-17] MEDS: Lisinopril TAB* 10 MG PO SCH (22:05)
[2018-11-17] MEDS: Enoxaparin(*) 40 MG/0.4 ML SYR SUBCUT SCH (22:08)
[2018-11-17] MEDS: Labetalol IV* 5 MG/ML 20 ML VIAL IV PUSH PRN (23:36)
[2018-11-18] MEDS: metroNIDAZOLE IV 500 MG/100ML* 500 MG/100 ML BAG IVPB SCH ×3 (04:16→20:20)
[2018-11-18 06:52] LABS: ABS Eosinophils 0.1 10^3/ul (0-0.6); ABS Monocytes 0.6 10^3/ul (0-0.8); ABS Neutrophils 3.2 10^3/ul (1.5-7.7); Eosinophil % 2.5 %; Hematocrit 30 % (35-47); Hemoglobin 9.9 g/dL (12.0-16.0); Lymphocyte % 19.7 %; Mean Corpuscular HGB Conc 33 g/dL (31-36); Mean Corpuscular Hemoglobin 28 pg (27-31); Mean Corpuscular Volume 86 fL (80-97); Mean Platelet Volume 8.9 fL (7.4-10.4); Platelet Count 224 10^3/uL (150-450); Red Blood Count 3.51 10^6 /uL (3.70-4.87); Red Cell Distribution Width 16 % (10-15); White Blood Count 4.9 10^3/uL (3.5-10.8)
[2018-11-18 07:14] LABS: BUN/Creatinine Ratio 5.5 (8-20); Calcium 8.7 mg/dL (8.6-10.3); EGFR African American 59.4 (>60); EGFR Non-African American 49.1 (>60); Potassium 3.5 mmol/L (3.5-5.0)
[2018-11-18] MEDS: Aspirin EC TAB* 81 MG TAB.EC PO SCH (08:32)
[2018-11-18] MEDS: POTASSIUM GLUCONATE 550 MG PO SCH (08:32)
[2018-11-18] MEDS: Venlafaxine EXT RELEASE CAP* 75 MG PO SCH (08:32)
[2018-11-18] MEDS: Cholecalciferol TAB* 1000 UNITS PO SCH (08:32)
[2018-11-18] MEDS: Ciprofloxacin 400MG IVPREMIX(* 400 MG/200 ML BAG IVPB SCH ×2 (08:34→21:41)
[2018-11-18] MEDS: Pantoprazole TAB * 40 MG TAB PO SCH (08:34)
[2018-11-18] MEDS: NS 0.9% 1000 ML** 1,000 ML IV SCH (08:36)
[2018-11-18] MEDS ORDERED: Acetaminophen TAB* 325 MG PO PRN (08:36)
[2018-11-18] MEDS: Docusate CAP* 100 MG PO SCH ×2 (08:36→21:44)
[2018-11-18] MEDS ORDERED: HYDROmorphone INJ1* 1 MG/ML SYRINGE IV SLOW PU PRN (08:37)
[2018-11-18] MEDS ORDERED: oxyCODONE/Acetamin 5/325 MG* TAB PO PRN (08:37)
[2018-11-18] MEDS: Insulin LISPRO* 1 UNITS UNIT SUBCUT SCH ×4 (08:41→21:44)
[2018-11-18 09:51] LABS: C Reactive Protein 34.42 mg/L (<8.01)
[2018-11-18 09:54] LABS: C Reactive Protein 73.96 mg/L (<8.01)
--- NOTE | 2018-11-18 10:12 | CONSULT ---
Consult Consult: I saw and evaluated the patient on 11/17/18. Harrison's note reviewed and I discussed case with him. Agree with NPP's note. Dx: abdominal pain- resolving; likely colitis- non-ischemic. Plan: advance diet
--- NOTE | 2018-11-18 10:22 | PN ---
Progress Note - Progress Note Date of Service: 11/18/18 SOAP: Subjective: This is a 68 y.o. female admitted for abdominal pain and suspected ischemic colitis. She states that she is feeling significantly better this morning and is eager to go home. Her pain is 0-3/10 and she is currently not taking any pain medication. She states that she has been having diarrhea since being admitted, but that last night her diarrhea increased significantly in volume. She has had 2 BMs since waking today that have both been a large volume of diarrhea. She denies cramping, blood per rectum, mucous in the stool, nausea, and vomiting. She is tolerating clear liquids well and wishes to advance her diet to soft foods as soon as possible. Her current medications are as follows: Acetaminophen (Tylenol Tab*) 650 mg PO Q4H PRN PRN Reason: Fever>100.9/Pain-mild Aspirin (Aspirin Ec Tab*) 81 mg PO DAILY [facility] Last Admin: 11/18/18 08:32 Dose: 81 mg Atorvastatin Calcium (Lipitor*) 5 mg PO BEDTIME [facility]; Protocol Last Admin: 11/17/18 22:04 Dose: 5 mg Cholecalciferol (Vitamin D Tab*) 2,000 units PO DAILY [facility] Last Admin: 11/18/18 08:32 Dose: 2,000 units Docusate Sodium (Colace Cap*) 100 mg PO BID [facility] Last Admin: 11/18/18 08:36 Dose: Not Given Enoxaparin Sodium (Lovenox(*)) 40 mg SUBCUT Q24H [facility] Last Admin: 11/17/18 22:08 Dose: 40 mg Hydromorphone HCl (Dilaudid Inj1s*) 0.5 mg IV SLOW PU Q6H PRN PRN Reason: PAIN - SEVERE Sodium Chloride (Ns 0.9% 1000 Ml) 1,000 mls @ 75 mls/hr IV PER RATE [facility] Last Admin: 11/18/18 08:36 Dose: 75 mls/hr Ciprofloxacin/Dextrose (Cipro 400 Mg Ivpremix(*)) 400 mg in 200 mls @ 200 mls/ hr IVPB Q12H [facility]; Protocol Last Admin: 11/18/18 08:34 Dose: 200 mls/hr Metronidazole/Sodium Chloride (Flagyl 500 Mg Ivpb*) 500 mg in 100 mls @ 100 mls /hr IVPB Q8H [facility] Last Admin: 11/18/18 04:16 Dose: 100 mls/hr Insulin Human Lispro (Humalog*) 0 units SUBCUT [facility]; Protocol Last Admin: 11/18/18 08:41 Dose: 3 units Labetalol HCl (Trandate Iv*) 20 mg IV PUSH Q6H PRN PRN Reason: Systolic Bp Greater Than:180 Last Admin: 11/17/18 23:36 Dose: 4 ml Lisinopril (Prinivil Tab*) 30 mg PO BEDTIME [facility] Last Admin: 11/17/18 22:05 Dose: 30 mg Potassium Gluconate (550 Mg Tablets) 550 mg PO DAILY [facility] Last Admin: 11/18/18 08:32 Dose: 550 mg Oxycodone/Acetaminophen (Percocet 5/325 Tab*) 1 tab PO Q4H PRN PRN Reason: PAIN - MODERATE Pantoprazole Sodium (Protonix Tab*) 40 mg PO QAM [facility] Last Admin: 11/18/18 08:34 Dose: 40 mg Tramadol HCl (Ultram*) 50 mg PO Q6HR PRN PRN Reason: PAIN - MODERATE Last Admin: 11/16/18 23:14 Dose: 50 mg Venlafaxine HCl (Effexor Xr Cap*) 75 mg PO QAM [facility] Last Admin: 11/18/18 08:32 Dose: 75 mg Objective: Vital Signs - 8 hr 11/18/18 03:10 Temperature 98.1 F Pulse Rate 81 Respiratory 16 Rate Blood Pressure 158/69 (mmHg) O2 Sat by Pulse 99 Oximetry Intake and Output Last 24 Hours 11/16/18 11/17/18 11/18/18 11/19/18 06:59 06:59 06:59 06:59 Intake Total 656 1989 2546 Balance 656 1989 2546 Weight 219 lb 11.2 oz Intake: IV Fluids 556 1446 ns 456 1446 IVPB 100 400 620 ABX - FLAGYL 100 210 cuprofloxacin 200 410 zosyn 100 100 Oral 0 1590 480 Other: Estimated Void Medium # Bowel Movements 0 1 # Voids 0 1 2 General: A&O x3. Lying comfortably in bed, not in acute distress or pain. Cardiovascular: RRR. No murmurs, rubs, or gallops. Trace edema in left LE ( unable to visualize Right LE as it is covered by a walking cast) Lung: clear to auscultation bilaterally. No wheezing or rhonchi. Abdomen: Hypoactive bowel sounds. Abdomen soft, non-tender, non-distended. Assessment: Segmental colitis, possibly ischemic in nature- improving Plan: Continue monitoring for changes in pain status, however her pain is currently well controlled without medication. Continue monitoring for signs of dehydration due to perfuse diarrhea. Consider trial of soft food diet as tolerated. Continue IV fluids and ABX therapy. <Tiffany Fairbanks - Last Filed: 11/18/18 10:13> - Progress Note SOAP: Subjective: I saw and evaluated the patient. Agree with NPP student's note. <Gamal Estevez - Last Filed: 11/18/18 10:54>
[2018-11-18 12:07] LABS: C Reactive Protein 52.16 mg/L (<8.01)
--- NOTE | 2018-11-18 17:14 | PN ---
Subjective Date of Service: 11/18/18 Interval History: Pt is tolerating soft diet. denies abd pain. Has had loose BM's ever 4 hrs and this AM one brown stool had a little bit of red blood in it Objective Active Medications: Acetaminophen (Tylenol Tab*) 650 mg PO Q4H PRN PRN Reason: Fever>100.9/Pain-mild Aspirin (Aspirin Ec Tab*) 81 mg PO DAILY [facility] Last Admin: 11/18/18 08:32 Dose: 81 mg Atorvastatin Calcium (Lipitor*) 5 mg PO BEDTIME [facility]; Protocol Last Admin: 11/17/18 22:04 Dose: 5 mg Cholecalciferol (Vitamin D Tab*) 2,000 units PO DAILY [facility] Last Admin: 11/18/18 08:32 Dose: 2,000 units Docusate Sodium (Colace Cap*) 100 mg PO BID [facility] Last Admin: 11/18/18 08:36 Dose: Not Given Enoxaparin Sodium (Lovenox(*)) 40 mg SUBCUT Q24H [facility] Last Admin: 11/17/18 22:08 Dose: 40 mg Hydromorphone HCl (Dilaudid Inj1s*) 0.5 mg IV SLOW PU Q6H PRN PRN Reason: PAIN - SEVERE Ciprofloxacin/Dextrose (Cipro 400 Mg Ivpremix(*)) 400 mg in 200 mls @ 200 mls/ hr IVPB Q12H [facility]; Protocol Last Admin: 11/18/18 08:34 Dose: 200 mls/hr Metronidazole/Sodium Chloride (Flagyl 500 Mg Ivpb*) 500 mg in 100 mls @ 100 mls /hr IVPB Q8H [facility] Last Admin: 11/18/18 12:40 Dose: 100 mls/hr Insulin Human Lispro (Humalog*) 0 units SUBCUT ACHS [facility]; Protocol Last Admin: 11/18/18 13:17 Dose: 2 units Labetalol HCl (Trandate Iv*) 20 mg IV PUSH Q6H PRN PRN Reason: Systolic Bp Greater Than:180 Last Admin: 11/17/18 23:36 Dose: 4 ml Lactobacillus Rhamnosus (Lactobacillus Acidophilus*) 1 tab PO BID [facility] Lisinopril (Prinivil Tab*) 30 mg PO BEDTIME [facility] Last Admin: 11/17/18 22:05 Dose: 30 mg Potassium Gluconate (550 Mg Tablets) 550 mg PO DAILY [facility] Last Admin: 11/18/18 08:32 Dose: 550 mg Oxycodone/Acetaminophen (Percocet 5/325 Tab*) 1 tab PO Q4H PRN PRN Reason: PAIN - MODERATE Pantoprazole Sodium (Protonix Tab*) 40 mg PO QAM [facility] Last Admin: 11/18/18 08:34 Dose: 40 mg Tramadol HCl (Ultram*) 50 mg PO Q6HR PRN PRN Reason: PAIN - MODERATE Last Admin: 11/16/18 23:14 Dose: 50 mg Venlafaxine HCl (Effexor Xr Cap*) [facility] Last Admin: 11/18/18 08:32 Dose: 75 mg Vital Signs - 8 hr 11/18/18 11/18/18 11:21 15:06 Temperature 98.9 F 97.9 F Pulse Rate 77 78 Respiratory 18 Rate Blood Pressure 165/62 159/133 (mmHg) O2 Sat by Pulse 98 98 Oximetry Oxygen Devices in Use Now: None Appearance: 68 yo f in nAD, aAOx3 Eyes: No Scleral Icterus, PERRLA Ears/Nose/Mouth/Throat: NL Teeth, Lips, Gums, Mucous Membranes Moist Neck: NL Appearance and Movements; NL JVP, Trachea Midline Respiratory: Symmetrical Chest Expansion and Respiratory Effort Cardiovascular: NL Sounds; No Murmurs; No JVD, RRR Abdominal: NL Sounds; No Tenderness; No Distention Lymphatic: No Cervical Adenopathy Extremities: No Edema, No Clubbing, Cyanosis Skin: No Rash or Ulcers, No Nodules or Sclerosis Neurological: Alert and Oriented x 3, NL Muscle Strength and Tone Result Diagrams: 11/18/18 06:28 11/18/18 06:28 Additional Lab and Data: Lab Results 11/15/18 Range/Units 17:29 WBC 5.5 (3.5-10.8) 10^3/uL RBC 4.00 (3.70-4.87) 10^6 /uL Hgb 11.4 L (12.0-16.0) g/dL Hct 34 L (35-47) % MCV 86 (80-97) fL MCH 29 (27-31) pg MCHC 33 (31-36) g/dL RDW 16 H (10-15) % Plt Count 232 (150-450) 10^3/uL MPV 9.0 (7.4-10.4) fL Neut % (Auto) 64.9 % Lymph % (Auto) 20.7 % [place] % (Auto) 11.6 % Eos % (Auto) 2.0 % Baso % (Auto) 0.8 % Absolute Neuts (auto) 3.6 (1.5-7.7) 10^3/ul Absolute Lymphs (auto) 1.1 (1.0-4.8) 10^3/ul Absolute Monos (auto) 0.6 (0-0.8) 10^3/ul Absolute Eos (auto) 0.1 (0-0.6) 10^3/ul Absolute Basos (auto) 0.0 (0-0.2) 10^3/ul Absolute Nucleated RBC 0.0 10^3/ul Nucleated RBC % 0.0 Microbiology and Other Data: Microbiology 11/15/18 21:20 Urine Culture - Final Urine No Growth (<1,000 CFU/mL) 11/16/18 14:35 Stool Gross Appearance - Final Stool Assess/Plan/Problems-Billing Assessment: 68 year old Female with hx of HTN, here with colitis, failed outpatient therapy. - Patient Problems (1) Colitis Comment: Continue cipro, flagyl Pain reolved, advancing diet GI input appreciated status post flex sigmpoidosopy, found ulceration at the sigmoid region, path positive for inflamation. Pt had some BRBPR, but requests to have no more bloodwork. It is possible that the bleeding was a single event related to the sigmoid ulceration. I agreed that if there's no further bleeding she can go home tomorrow with no further labs needed (2) Adrenal nodule Comment: stable left adrenaloma. No follow up imaging indicated per ACR guidelines (3) CKD (chronic kidney disease), stage III Comment: stable. (4) Diabetes mellitus type 2 Comment: restarting home metformin sliding scale insulin (5) HYPERTENSION Comment: continue home lisinopril (6) DVT prophylaxis Comment: Lovenox subQ-will hold due to BRBPR
[2018-11-18] MEDS: metFORMIN* 500 MG TAB PO SCH (21:42)
[2018-11-18] MEDS: Lactobacillus Acidophilus* 1 TAB PO SCH (21:42)
[2018-11-18] MEDS: Lisinopril TAB* 10 MG PO SCH (21:43)
[2018-11-18] MEDS: Atorvastatin* 10 MG TAB PO SCH (21:43)
[2018-11-18] MEDS: Labetalol IV* 5 MG/ML 20 ML VIAL IV PUSH PRN (23:21)
[2018-11-19] MEDS: metroNIDAZOLE IV 500 MG/100ML* 500 MG/100 ML BAG IVPB SCH ×2 (04:03→12:46)
[2018-11-19] MEDS: Lactobacillus Acidophilus* 1 TAB PO SCH (07:46)
[2018-11-19] MEDS: Aspirin EC TAB* 81 MG TAB.EC PO SCH (07:47)
[2018-11-19] MEDS: Venlafaxine EXT RELEASE CAP* 75 MG PO SCH (07:47)
[2018-11-19] MEDS: Docusate CAP* 100 MG PO SCH (07:47)
[2018-11-19] MEDS: metFORMIN* 500 MG TAB PO SCH (07:47)
[2018-11-19] MEDS: Cholecalciferol TAB* 1000 UNITS PO SCH (07:47)
[2018-11-19] MEDS: Pantoprazole TAB * 40 MG TAB PO SCH (07:48)
[2018-11-19] MEDS: POTASSIUM GLUCONATE 550 MG PO SCH (07:48)
[2018-11-19] MEDS: Labetalol IV* 5 MG/ML 20 ML VIAL IV PUSH PRN (07:56)
[2018-11-19] MEDS ORDERED: amLODIPine TAB* 5 MG PO SCH (09:00)
[2018-11-19] MEDS: Ciprofloxacin 400MG IVPREMIX(* 400 MG/200 ML BAG IVPB SCH ×2 (09:29→09:45)
[2018-11-19] MEDS: Insulin LISPRO* 1 UNITS UNIT SUBCUT SCH ×3 (09:30→17:23)
[2018-11-19 14:15] VITALS: BP 156/59
--- NOTE | 2018-11-19 14:50 | PN ---
Progress Note - Progress Note Date of Service: 11/19/18 SOAP: Subjective: This is a 68 y.o. female admitted for evaluation of abdominal pain and possible ischemic cholitis. She reports that she is feeling much better today and denies any pain. She is not taking any po or IV pain medications, including her tramadol which she takes at baseline. She is tolerating a soft food diet without nausea or vomiting and is able to ambulate easily and frequently. She is still having frequent loose stools and reports that her stool last night was darker in color than usual. She wishes to go home today. Current medications are as follows: Acetaminophen (Tylenol Tab*) 650 mg PO Q4H PRN PRN Reason: Fever>100.9/Pain-mild Amlodipine Besylate (Norvasc Tab*) 5 mg PO DAILY [facility] Last Admin: 11/19/18 09:28 Dose: 5 mg Aspirin (Aspirin Ec Tab*) 81 mg PO DAILY [facility] Last Admin: 11/19/18 07:47 Dose: 81 mg Atorvastatin Calcium (Lipitor*) 5 mg PO BEDTIME [facility]; Protocol Last Admin: 11/18/18 21:43 Dose: 5 mg Cholecalciferol (Vitamin D Tab*) 2,000 units PO DAILY [facility] Last Admin: 11/19/18 07:47 Dose: 2,000 units Docusate Sodium (Colace Cap*) 100 mg PO BID [facility] Last Admin: 11/19/18 07:47 Dose: 100 mg Hydromorphone HCl (Dilaudid Inj1s*) 0.5 mg IV SLOW PU Q6H PRN PRN Reason: PAIN - SEVERE Ciprofloxacin/Dextrose (Cipro 400 Mg Ivpremix(*)) 400 mg in 200 mls @ 200 mls/ hr IVPB Q12H [facility]; Protocol Last Admin: 11/19/18 09:45 Dose: 200 mls/hr Metronidazole/Sodium Chloride (Flagyl 500 Mg Ivpb*) 500 mg in 100 mls @ 100 mls /hr IVPB Q8H [facility] Last Admin: 11/19/18 12:46 Dose: 100 mls/hr Insulin Human Lispro (Humalog*) 0 units SUBCUT ACHS [facility]; Protocol Last Admin: 11/19/18 14:09 Dose: 4 units Labetalol HCl (Trandate Iv*) 20 mg IV PUSH Q6H PRN PRN Reason: Systolic Bp Greater Than:180 Last Admin: 11/19/18 07:56 Dose: 4 ml Lactobacillus Rhamnosus (Lactobacillus Acidophilus*) 1 tab PO BID [facility] Last Admin: 11/19/18 07:46 Dose: 1 tab Lisinopril (Prinivil Tab*) 30 mg PO BEDTIME [facility] Last Admin: 11/18/18 21:43 Dose: 30 mg Metformin HCl (Glucophage*) 250 mg PO BID [facility] Last Admin: 11/19/18 07:47 Dose: 250 mg Potassium Gluconate (550 Mg Tablets) 550 mg PO DAILY [facility] Last Admin: 11/19/18 07:48 Dose: 550 mg Oxycodone/Acetaminophen (Percocet 5/325 Tab*) 1 tab PO Q4H PRN PRN Reason: PAIN - MODERATE Pantoprazole Sodium (Protonix Tab*) 40 mg PO QAM [facility] Last Admin: 11/19/18 07:48 Dose: 40 mg Tramadol HCl (Ultram*) 50 mg PO Q6HR PRN PRN Reason: PAIN - MODERATE Last Admin: 11/16/18 23:14 Dose: 50 mg Venlafaxine HCl (Effexor Xr Cap*) 75 mg PO QAM [facility] Last Admin: 11/19/18 07:47 Dose: 75 mg Objective: Vital Signs - 8 hr 11/19/18 11/19/18 11/19/18 07:19 08:00 09:20 Temperature 98.1 F Pulse Rate 80 Respiratory 18 16 Rate Blood Pressure 180/65 146/67 (mmHg) O2 Sat by Pulse 98 Oximetry 11/19/18 11:31 Temperature 98.7 F Pulse Rate 73 Respiratory 18 Rate Blood Pressure 156/59 (mmHg) O2 Sat by Pulse 97 Oximetry Intake and Output Last 24 Hours 11/17/18 11/18/18 11/19/18 11/20/18 06:59 06:59 06:59 06:59 Intake Total 1989 2545 2469 204 Output Total 700 Balance 19896 2470 1340 Intake: IV Fluids 1446 60 ABX - FLAGYL 20 ns 1446 40 IVPB 400 620 400 ABX - FLAGYL 100 210 200 cuprofloxacin 200 410 200 zosyn 100 Oral 0115 840 7125 2039 Output: Liquid Stool 700 Other: Estimated Void Medium Medium # Bowel Movements 0 1 0 1 Estimated Stool Amount Medium Small # Voids 1 2 2 Abnormal Lab Results 11/18/18 11/18/18 11/19/18 17:09 20:58 07:37 POC Glucose (mg/dL) 327 H 193 H 249 H Glucose Meter Confirm 11/19/18 11/19/18 11/19/18 11:42 11:48 13:27 POC Glucose (mg/dL) 431 H* 425 H* Glucose Meter Confirm 348 H General: A&O x3. Able to get up into bed without discomfort. Not in acute distress. Cardiovascular: RRR. No murmurs, rubs, or gallops. Lungs: Clear to auscultation bilaterally. No wheezes, rhales, or rhonchi. Abdomen: Normoactive bowel sounds throughout. No tenderness to palpation. Abdomen soft and non-distended. Stool Guaiac (11/19/18 @0900): POSITIVE Assessment: Segmental colitis, possibly ischemic in nature- improving Plan: The patient is progressing well and denies all pain and tenderness to palpation. Continue progressing diet as tolerated. Continue DVT prophylaxis with frequent ambulation and SQ Heparin for duration of hospital stay. The patient was advised to alert a provider should increased pain, fever, or gross blood per rectum occur. Continue IV ABX for duration of hospital stay with transition to po medication once discharge is possible. Continue close monitoring of BG and consider tighter control with po medications or insulin as last few readings were in the 300-400 range.
--- NOTE | 2018-11-30 20:53 | DS ---
CC: Dr. Ramona Mcpherson; Dr. Epstein; Dr. Estevez* DISCHARGE SUMMARY: DATE OF ADMISSION: 11/15/18 DATE OF DISCHARGE: 11/19/18 PRIMARY CARE PROVIDER: Dr. Ramona Mcpherson. DISCHARGE DIAGNOSES: 1. Abdominal pain due to acute colitis, status post colonoscopy performed by Dr. Epstein with pathology positive for inflammation. 2. Adrenal nodule noted as "stable left adrenal adenoma." 3. History of chronic kidney disease, stage 3, stable. SECONDARY DIAGNOSES: 1. Diabetes type 2. 2. Dyslipidemia. 3. Hypertension. 4. History of repaired atrial septa defect in childhood. 5. History of pulmonary hypertension. 6. Gastroesophageal reflux disease. 7. History of depression. 8. History of right fibula fracture recently, treated conservatively. MEDICATIONS AT DISCHARGE: Include: 1. Aspirin 81 mg once daily. 2. Vitamin D3 50 mcg daily. 3. Famvir 250 mg 3 times a day. 4. Glipizide 5 mg 3 times a day. 5. Lisinopril 30 mg at bedtime. 6. Metformin 250 mg b.i.d. 7. Flagyl 500 mg every 8 hours. 8. Protonix 40 mg daily. 9. Actos 45 mg daily. 10. Potassium 99 mg tablet 1 tablet daily. 11. Pravachol 20 mg daily. 12. Effexor XR 75 mg daily. 13. Amlodipine 5 mg daily. 14. Ciprofloxacin 500 mg b.i.d. 15. Colace 100 mg b.i.d. p.r.n. 16. Ultram 50 mg every 6 hours p.r.n. HOSPITALIZATION COURSE: Mrs. Rosario is a 68-year-old female who started complaining of malaise and abdominal pain when she was on a camping trip. Then , she was noted to have bright red blood per rectum. Dr. Epstein performed colonoscopy on 11/16/18, with pathology showing active colitis with ulceration and acute inflammatory exudate. The patient also was evaluated by Surgery during her hospital stay. She developed mild anemia with hemoglobin of 9.9 the day prior to discharge and later on she was not interested in pursuing any further blood work, but the bright red blood per rectum resolved by the time of discharge. Initially, she was placed on bowel rest and later on her diet was gently reintroduced. She also had acute kidney injury with creatinine of 1.34 at admission that was resolving by the time of discharge. She was treated with broad-spectrum antibiotics throughout her hospital stay and she is going to be discharged with ciprofloxacin and Flagyl for another 3 days after discharge. LABORATORY DATA PERFORMED DURING THE HOSPITAL STAY: Included: On 11/16/18, sodium of 138, potassium 3.8, chloride 103, carbon dioxide 28, BUN 14, creatinine 1.24. White blood cell count 4.9, hemoglobin of 9.9, hematocrit of 30, and platelets of 224. C-reactive protein was down to 73 on 11/16/18 from 111 at the time of admission. Stool occult blood was positive on 11/19/18 and blood cultures were negative for negative Shiga toxin 1 and 2 and negative for cryptosporidium and giardia. CT of the abdomen and pelvis obtained on admission, impression: "Infectious colitis of descending colon. Stable left adrenal adenoma. No followup imaging indicated as per [employer] Guidelines." Venous Doppler study obtained on 11/15/18, impression: "No bilateral lower extremity DVT." PROCEDURES PERFORMED: Included colonoscopy performed by Dr. Epstein on 11/16/18 , impression: "Segmental sigmoid colonic ulcerations and atypical appearance. The patient had subacute progression without any thunderclap onset or abdominal cramps. There was never any rectal bleeding. Thus, the history is atypical for ischemic colitis, although this has to lead on the list. Conservative management for the moment is indicated. Possibility of surgery being needed will be discussed with the patient as the course has now extended into the sixth or seventh day. " In addendum, it was noted to have "acute colitis with no mention of viral effect." At discharge, the patient is recommended to follow up with primary care provider in 4 to 7 days. She also will follow up with Dr. Epstein and she is asked to call for followup appointment in 10 days. PHYSICAL EXAMINATION: For physical exam on the day of discharge, please see daily progress notes. TIME SPENT: Approximately 35 minutes was spent on the patient's discharge. DISPOSITION AT DISCHARGE: Home. CONDITION ON DISCHARGE: Stable. [id number] #: [id number]
== END 2018-11-19 18:59 | disposition home or self-care (01) | DRG 395 ==
LOC: ED 15:54 → MED 21:07
PROVIDERS: ADMIT Internal Medicine; ATTEND Internal Medicine
PROC: 0DBN8ZX Excision of Sigmoid Colon, Via Natural or Artificial Opening Endoscopic, Diagnostic (ICD-10-PCS; principal; 2018-11-16)
DX: K55.039 Acute (reversible) ischemia of large intestine, extent unspecified (principal); I25.10 Atherosclerotic heart disease of native coronary artery without angina pectoris; E78.00 Pure hypercholesterolemia, unspecified; I27.20 Pulmonary hypertension, unspecified; I34.0 Nonrheumatic mitral (valve) insufficiency; K21.9 Gastro-esophageal reflux disease without esophagitis; K76.0 Fatty (change of) liver, not elsewhere classified; G43.909 Migraine, unspecified, not intractable, without status migrainosus; M16.0 Bilateral primary osteoarthritis of hip; J44.9 Chronic obstructive pulmonary disease, unspecified; E11.36 Type 2 diabetes mellitus with diabetic cataract; K59.00 Constipation, unspecified; E27.8 Other specified disorders of adrenal gland; E78.5 Hyperlipidemia, unspecified; F41.9 Anxiety disorder, unspecified; F32.9 Major depressive disorder, single episode, unspecified; N18.3 Chronic kidney disease, stage 3 (moderate); E11.22 Type 2 diabetes mellitus with diabetic chronic kidney disease; I12.9 Hypertensive chronic kidney disease with stage 1 through stage 4 chronic kidney disease, or unspecified chronic kidney disease; E66.9 Obesity, unspecified; Z88.2 Allergy status to sulfonamides; Z91.040 Latex allergy status; Z68.36 Body mass index [BMI] 36.0-36.9, adult; Z83.518 Family history of other specified eye disorder; Z87.891 Personal history of nicotine dependence; Z90.49 Acquired absence of other specified parts of digestive tract
CPT/HCPCS: 36415; 74177; 80048; 80053; 81003; 81015; 82150; 82272; 82947; 83605; 83690; 83735; 85025; 86140; 87045; 87046; 87086; 87252; 87253; 87328; 87329; 87899; 88305; 88312; 88342; 93970; 96361; 96365; 96366; 96375; 96376; 99156; 99157; 99283; 99284; A9270-GY; J0744; J1170; J1650; J2250; J2270; J2405; J3010; J3475; Q9967

== ENCOUNTER 2023-01-13 05:35 | Observation (INO) ==
[2023-01-13] MEDS ORDERED: Lactated Ringers 1000 ml BAG 1,000 ML IV SCH (06:00)
[2023-01-13] MEDS ORDERED: Buffered Lidocaine 1% SYRIN 1 ml INTRADERM ONE (06:00)
[2023-01-13] MEDS ORDERED: ceFAZolin 2 GM in NS PREMIX 2 GM/100 ML BAG IVPB ONE (06:13)
[2023-01-13] MEDS ORDERED: Ondansetron 4 mg VIAL 2 MG/ML 2 ml VIAL ONE (06:30)
[2023-01-13] MEDS ORDERED: Sevoflurane BOTTLE ONE (06:30)
[2023-01-13] MEDS ORDERED: Midazolam 2 mg/2 ml VIAL 1 mg/ml 2 ml VIAL (2 mg) ONE (06:30)
[2023-01-13] MEDS ORDERED: Dexamethasone IV 4 MG/ML VIAL 1 ml VIAL ONE ×2 (06:30→08:56)
[2023-01-13] MEDS ORDERED: Phenylephrine 40 mcg/mL 10mL (400mcg) SYRINGE ONE (06:30)
[2023-01-13] MEDS ORDERED: Succinylcholine 200 mg VIAL 20 mg/ml 10 ml VIAL (200 mg) ONE ×2 (06:30→06:54)
[2023-01-13] MEDS ORDERED: fentaNYL 100 mcg/2 ml 50 MCG/ML VIAL ONE (06:30)
[2023-01-13] MEDS ORDERED: Lidocaine 2% PF 5 ML VIAL ONE ×2 (06:30→07:33)
[2023-01-13 06:36] LABS: Rapid COVID-19 Molecular Undetected (Undetected)
[2023-01-13] MEDS ORDERED: Phenylephrine IV 10 MG/ML 1 ml VIAL ONE (06:48)
[2023-01-13] MEDS ORDERED: ROPIVACAINE 5 MG/ML 30 ML BTL (0.5%) ONE (06:55)
[2023-01-13] MEDS ORDERED: Rocuronium 50 mg VIAL 10 mg/ml 5 ml VIAL (50 mg) ONE (07:33)
[2023-01-13] MEDS ORDERED: fentaNYL 250 mcg/5 ml 50 MCG/ML 5 ml VIAL (250 MCG) ONE (07:33)
[2023-01-13] MEDS ORDERED: Esmolol 10 MG/ML 10 ML (100 mg) IV ONE (08:01)
[2023-01-13] MEDS ORDERED: Labetalol IV 5 MG/ML 20 ml VIAL ONE (08:13)
[2023-01-13] MEDS ORDERED: Ondansetron ODT 4 mg TAB 4 MG TAB PO PRN (08:30)
[2023-01-13] MEDS ORDERED: Ondansetron 4 mg VIAL 2 MG/ML 2 ml VIAL IV PRN ×2 (08:30→09:29)
[2023-01-13] MEDS ORDERED: Magnesium Hydroxide LIQ 30 ML UDC PO PRN (08:30)
[2023-01-13] MEDS ORDERED: Morphine 2 MG/ML SYRINGE IV PRN (08:30)
[2023-01-13] MEDS ORDERED: Lactulose 30 ml UDC PO PRN (08:30)
[2023-01-13] MEDS ORDERED: fentaNYL 100 mcg/2 ml 50 MCG/ML VIAL IV PRN (09:29)
[2023-01-13] MEDS ORDERED: Naloxone 0.4 mg VIAL 0.4 mg/ml 1 ml VIAL IV PRN (09:29)
[2023-01-13] MEDS: Lactated Ringers 1000 ml BAG 1,000 ML IV SCH ×2 (11:49→21:23)
[2023-01-13] MEDS ORDERED: Acetaminophen IV 1 GM/100ML 1,000 MG/100 ML BAG IV ONE (11:53)
[2023-01-13] MEDS: Magnesium Hydroxide LIQ 30 ML UDC PO SCH ×2 (13:00→22:16)
[2023-01-13] MEDS: Vitamin THERAPEUTIC TAB PO SCH (13:21)
[2023-01-13] MEDS: Venlafaxine XR 75 mg PO SCH (13:22)
[2023-01-13] MEDS: ceFAZolin 1 GM ADVAN 1 GM in NS 0.9% 50 ML 50 ML IVPB SCH (17:19)
[2023-01-14] MEDS: ceFAZolin 1 GM ADVAN 1 GM in NS 0.9% 50 ML 50 ML IVPB SCH ×2 (00:26→09:51)
[2023-01-14] MEDS: Lactated Ringers 1000 ml BAG 1,000 ML IV SCH (07:54)
[2023-01-14 08:06] LABS: Hematocrit 34.9 % (35-45); Hemoglobin 11.8 g/dL (11.5-14.3); Mean Platelet Volume 9.5 fL (7.5-11.2); Platelet Count 152 10^3/uL (150-450)
[2023-01-14 08:26] LABS: Calcium 8.6 mg/dL (8.6-10.3); Creatinine, Serum 1.38 mg/dL (0.51-0.95); Potassium 4.7 mmol/L (3.5-5.0); eGFR CKD-EPI 40.2 (>60)
[2023-01-14] MEDS: Venlafaxine XR 75 mg PO SCH (09:46)
[2023-01-14] MEDS: Vitamin THERAPEUTIC TAB PO SCH (09:47)
[2023-01-14] MEDS: Magnesium Hydroxide LIQ 30 ML UDC PO SCH ×2 (09:49→20:24)
[2023-01-14] MEDS ORDERED: Dextrose 50% Syringe 50 ml 25 GM/50 ML SYRINGE IV PUSH PRN (14:25)
[2023-01-15 06:28] LABS: Hematocrit 33.9 % (35-45); Hemoglobin 11.3 g/dL (11.5-14.3); Mean Platelet Volume 10.1 fL (7.5-11.2); Platelet Count 139 10^3/uL (150-450)
[2023-01-15] MEDS: Magnesium Hydroxide LIQ 30 ML UDC PO SCH (08:15)
[2023-01-15] MEDS: Venlafaxine XR 75 mg PO SCH (08:16)
[2023-01-15] MEDS: Vitamin THERAPEUTIC TAB PO SCH (08:16)
[2023-01-15 10:43] VITALS: BP 101/63
== END 2023-01-15 11:25 | disposition home or self-care (01) ==
LOC: OR 05:35 → SSU 05:35
PROVIDERS: ADMIT Physician Assistant; ATTEND Orthopaedic Surgery Adult Reconstructive Orthopaedic Surgery